=== PATIENT | female | born 1955 | race Caucasian/White ===

== ENCOUNTER → 2018-04-26 13:33 | Outpatient (CLI) | payer OTHER, SELFPAY ==
--- NOTE | 2018-04-26 13:36 | BI_ITS ---
MAMMOGRAPHY - BILATERAL SCREENING REASON FOR EXAM: Female, 62 years old. Routine annual screening examination. PERTINENT HISTORY: Grandmother with breast cancer. TECHNIQUE: Digital bilateral breast abdon (3D mammographic acquisition) in the CC and MLO projections. 2-D mediolateral oblique (MLO) and craniocaudad (CC) views of both breasts were obtained. CAD: Full Field Digital Mammography with Computer Added Detection was performed. COMPARISON: Comparison is made with prior outside examination dated January 02, 2014. FINDINGS: Breast Composition: There are scattered areas of fibroglandular density. There are no dominant masses or suspicious calcifications. Stable benign-appearing bilateral axillary lymph nodes. No other significant abnormalities are identified. There has been no significant change since the prior study. BI/SCREENING MAMM (CAD), BILAT IMPRESSION: Stable bilateral screening mammogram. Yearly follow-up mammogram recommended. (A) ASSESSMENT CATEGORY: BIRADS Category 2: Benign. A letter regarding these results will be sent to the patient by the facility within 30 days. Approximately 10% of breast cancers are not detected by mammography. A normal mammogram should not delay biopsy of a clinically suspicious abnormality. [id number] Electronically Signed: Oleksandr Magallanes, at 15:24 EST , Service support ,
== END ==
PROVIDERS: Family Provider Family Medicine; PCP Family Medicine; Referring Provider Family Medicine; Visit Provider Family Medicine
DX: Z12.31 Encounter for screening mammogram for malignant neoplasm of breast (principal)
CPT/HCPCS: 77063; 77067

== ENCOUNTER → 2018-06-04 06:37 | Outpatient (CLI) | payer OTHER, SELFPAY ==
[2016-01-07 14:53] VITALS: BMI 33.0
[2018-06-04 08:45] LABS: Absolute Neutrophil Count 3.6 X10^3/uL (2.0-7.7); Basophil# 0.03 X10^3/uL; Basophil% 0.4 % (0-1); Eosinophils% 4.5 % (0-5); Hemoglobin 12.6 g/dl (12.0-15.0); Lymphocyte % 32.8 % (19-41); Mean Corp Hgb Conc 32.3 g/gl (32-36); Mean Corpuscular Hgb 27.6 pg (27.0-32.0); Mean Corpuscular Volume 85.3 fL (81-99); Mean Platelet Vol. 10.6 fl (6.2-12.0); Monocyte# 0.55 X10^3/uL; Monocyte% 8.2 % (0-10); Neutrophil # 3.61 X10^3/uL (2.7-7.7); Platelet Count 258 K/mm3 (150-450); RBC Distribution Width CV 13.3 % (11.6-14.6); RBC Distribution Width SD 41.1 fl (35.1-43.9); Red Blood Count 4.57 M/mm3 (4.2-5.4); White Blood Count 6.7 K/mm3 (4.4-11.0)
[2018-06-04 08:46] LABS: POSITIVE COUNT NO; POSITIVE DIFFERENTIAL NO; POSITIVE MORPHOLOGY NO
[2018-06-04 09:09] LABS: ALB/GLOB Ratio 1.1 RATIO (0.9-2.4); AST(SGOT) 17 U/L (15-37); Alanine Aminotransfer ALT/SGPT 24 U/L (13-56); Albumin, Serum 3.8 g/dL (3.2-5.0); Alkaline Phosphatase 89 U/L (45-117); Anion Gap 6 (5-15); BUN 18 mg/dL (7-18); BUN/Creat Ratio 25.2 RATIO (10-20); Calcium,Total 8.6 mg/dL (8.5-10.1); Chloride 104 mmol/L (98-107); Cholesterol 198 mg/dL (200); Creatinine, Serum 0.72 mg/dL (0.55-1.02); EST Glomerular Filtration Rate 88 mL/min (>60); Est Glom Filt Rate - Afr Amer 107 mL/min (>60); Globulin 3.5 g/dL (2.2-4.2); Glucose 93 mg/dL (74-106); High Density Lipoprotein 36 mg/dL; Potassium 3.9 mmol/L (3.5-5.1); Protein, Total 7.3 g/dL (6.4-8.2); Sodium Level 139 mmol/L (136-145); Triglycerides 183 mg/dL; Very Low Density Lipoprotein 37 mg/dL (5-40)
== END ==
PROVIDERS: Family Provider Family Medicine; PCP Family Medicine; Referring Provider Family Medicine; Visit Provider Family Medicine
DX: Z00.00 Encounter for general adult medical examination without abnormal findings (principal); R73.01 Impaired fasting glucose
CPT/HCPCS: 36415; 80053; 80061; 83036; 85025

== ENCOUNTER → 2020-04-26 06:27 | Outpatient (CLI) | payer OTHER, SELFPAY ==
[2020-02-29 15:41] VITALS: BMI 34.5
--- NOTE | 2020-04-26 06:34 | MRI_ITS ---
STUDY: MRI RIGHT KNEE REASON FOR EXAM: Medial and anterior right knee pain since 12/24/2019, arthroscopy in 2012. TECHNIQUE: Standardized fat and water weighted pulse sequences were obtained in all 3 orthogonal planes. COMPARISON: None. FINDINGS: There is a partial medial meniscectomy with recurrent tear with a displaced meniscal fragment in the medial gutter (T2 coronal images 16, 17). There is arthrosis of the medial femorotibial compartment with small marginal osteophytes, subchondral eburnation and very mild subchondral bone edema, and chondral loss (T2 sagittal image 18). Normal medial collateral ligamentous complex (MCL). Normal distal semimembranosus, gracilis and semitendinosus tendons. Normal lateral meniscus. Normal hyaline cartilage of the lateral femorotibial compartment. Normal lateral femoral condyle and tibial plateau. Normal proximal tibiofibular articulation. Normal lateral collateral (fibular) ligament. Normal popliteus tendon. Normal biceps femoris tendon. Normal anterior cruciate ligament (ACL). Normal posterior cruciate ligament (PCL). Normal congruent patellofemoral articulation. There is arthrosis of the patellofemoral compartment with chondral thinning (T2 sagittal image 10). Normal medial and lateral patellar retinaculum. Normal visualized quadriceps tendon. Normal patellar tendon. There is mild postoperative scarring in Hoffa''s fat pad. There is a minimal volume of fluid in the knee joint with mild extravasated fluid at the posterior lateral aspect of the knee. There is a thin medial patellar plica. There is a small popliteal cyst (sagittal images 19-21). There is mild edema in the anterior subcutis adipose space. There is very mild bone edema in the proximal tibia at the insertion site of the posterior cruciate ligament. MRI/Lower Ext Joint Only (Routine) IMPRESSION: Partial medial meniscectomy with recurrent tear with displaced meniscal fragment in the medial gutter. Arthrosis of the medial femorotibial and patellofemoral compartments. Small popliteal cyst. Electronically Signed: Tray Irby MD at 7:58 EST Tel , Service support ,
== END ==
PROVIDERS: PCP Family Medicine; Referring Provider Physician Assistant; Visit Provider Physician Assistant
DX: M25.561 Pain in right knee (principal)
CPT/HCPCS: 73721

== ENCOUNTER → 2020-04-27 07:01 | Outpatient (CLI) | payer OTHER, SELFPAY ==
[2020-02-29 15:41] VITALS: BMI 34.5
--- NOTE | 2020-04-27 06:59 | BI_ITS ---
MAMMOGRAPHY - BILATERAL SCREENING REASON FOR EXAM: Female, 64 years old. Routine annual screening examination. PERTINENT HISTORY: Grandmother with breast cancer. TECHNIQUE: Digital bilateral breast liz (3D mammographic acquisition) in the CC and MLO projections. 2-D mediolateral oblique (MLO) and craniocaudad (CC) views of both breasts were obtained. CAD: Full Field Digital Mammography with Computer Added Detection was performed. COMPARISON: Comparison is made with prior study dated 04/26/2018. FINDINGS: Breast Composition: There are scattered areas of fibroglandular density. There is a 7.5 mm x 8.4 mm asymmetrical density in the inferior medial aspect of the right breast. Correlation with ultrasound is recommended. Stable small benign-appearing bilateral axillary lymph nodes. No other significant abnormalities are identified. BI/SCRN MAMM (CAD)W/LIZ BILAT IMPRESSION: New 7.5 mm x 8.4 mm asymmetrical density in the inferior medial aspect of the right breast as described. Correlation with ultrasound is recommended. ASSESSMENT CATEGORY: BIRADS Category 0: Incomplete. Need additional imaging evaluation. A letter regarding these results will be sent to the patient by the facility within 30 days. Approximately 10% of breast cancers are not detected by mammography. A normal mammogram should not delay biopsy of a clinically suspicious abnormality. [id number] Electronically Signed: Oleksandr Magallanes MD at 8:26 EST , Service support ,
== END ==
PROVIDERS: PCP Family Medicine; Referring Provider Family Medicine; Visit Provider Family Medicine
DX: Z12.31 Encounter for screening mammogram for malignant neoplasm of breast (principal)
CPT/HCPCS: 77063; 77067

== ENCOUNTER → 2020-05-04 09:41 | Outpatient (CLI) | payer OTHER, SELFPAY ==
[2020-02-29 15:41] VITALS: BMI 34.5
--- NOTE | 2020-05-04 09:43 | US_ITS ---
STUDY: ULTRASOUND BREAST - RIGHT REASON FOR EXAM: Female, 64 years old. Abnormal mammogram TECHNIQUE: Axial and longitudinal images of the RIGHT breast were performed with a high resolution ultrasound transducer. # OF IMAGES: 35 COMPARISON: Mammogram from 04/27/2020 FINDINGS: RIGHT Breast: Ultrasound evaluation of the right breast, in the area of concern, shows only normal dense fibroglandular tissue. There is no suspicious shadowing solid lesion, architectural distortion, or clustered shadowing calcifications. US/Breast Limited Unilateral IMPRESSION: No suspicious sonographic findings ASSESSMENT CATEGORY: BIRADS Category 1: Negative. A letter regarding these results will be sent to the patient by the facility within 30 days. Electronically Signed: Flavio Orr MD at 16:40 EST , Service support ,
== END ==
PROVIDERS: PCP Family Medicine; Referring Provider Family Medicine; Visit Provider Family Medicine
DX: R92.8 Other abnormal and inconclusive findings on diagnostic imaging of breast (principal)
CPT/HCPCS: 76642

== ENCOUNTER → 2020-06-05 07:13 | Outpatient (CLI) | payer OTHER, SELFPAY ==
[2020-02-29 15:41] VITALS: BMI 34.5
[2020-06-05 07:27] LABS: Absolute Lymphocyte Count 2.59 X10^3/uL (0.83-4.51); Absolute Neutrophil Count 4.7 X10^3/uL (2.0-7.7); Basophil# 0.06 X10^3/uL; Basophil% 0.7 % (0-1); Eosinophil# 0.27 X10^3/uL; Eosinophils% 3.3 % (0-5); Hematocrit 43.3 % (37-47); Hemoglobin 13.7 g/dL (12.0-15.0); Lymphocyte # 2.59 X10^3/ul (4.0); Lymphocyte % 31.6 % (19-41); Mean Corp Hgb Conc 31.6 g/dL (32-36); Mean Corpuscular Hgb 27.1 pg (27.0-32.0); Mean Corpuscular Volume 85.6 fL (81-99); Mean Platelet Vol. 9.8 fl (6.2-12.0); Monocyte# 0.58 X10^3/uL; Monocyte% 7.1 % (0-10); NRBC Flagged by Analyzer 0 % (0-5); Neutrophil # 4.68 X10^3/uL (2.7-7.7); Neutrophil % 57.1 % (47-70); Platelet Count 283 K/mm3 (150-450); RBC Distribution Width CV 12.8 % (11.6-14.6); RBC Distribution Width SD 39.6 fl (35.1-43.9); Red Blood Count 5.06 M/mm3 (4.2-5.4); White Blood Count 8.2 K/mm3 (4.4-11.0)
[2020-06-05 08:05] LABS: ALB/GLOB Ratio 1.1 RATIO (0.9-2.4); AST(SGOT) 21 U/L (15-37); Alanine Aminotransfer ALT/SGPT 33 U/L (13-56); Albumin, Serum 3.8 g/dL (3.2-5.0); Alkaline Phosphatase 76 U/L (45-117); Anion Gap 4 (5-15); BUN 11 mg/dL (7-18); BUN/Creat Ratio 15.9 RATIO (10-20); CRP 8.74 mg/L (0.0-3.0); Calcium,Total 8.7 mg/dL (8.5-10.1); Chloride 103 mmol/L (98-107); Creatinine, Serum 0.69 mg/dL (0.55-1.02); EST Glomerular Filtration Rate 91 mL/min (>60); Est Glom Filt Rate - Afr Amer 110 mL/min (>60); Globulin 3.5 g/dL (2.2-4.2); Glucose 100 mg/dL (74-106); Potassium 3.8 mmol/L (3.5-5.1); Protein, Total 7.3 g/dL (6.4-8.2); Sodium Level 137 mmol/L (136-145)
== END ==
PROVIDERS: PCP Family Medicine; Referring Provider Family Medicine; Visit Provider Family Medicine
DX: R10.9 Unspecified abdominal pain (principal)
CPT/HCPCS: 36415; 80053; 85025; 86140

== ENCOUNTER → 2020-06-12 15:32 | Outpatient (CLI) | payer OTHER, SELFPAY ==
[2020-02-29 15:41] VITALS: BMI 34.5
--- NOTE | 2020-06-12 15:34 | CT_ITS ---
STUDY: CT ABDOMEN AND PELVIS WITHOUT CONTRAST REASON FOR EXAM: Female, 64 years old. 64YR OLD FEMALE W/LOW BACK AND FLANK PAIN,PERSISTENT -- ETIOLOGY UNCLEAR,HX OF KIDNEY STONES RADIATION DOSAGE (If Supplied By Facility): CTDIvol = ( 13.55 ) mGy, DLP = ( 613.25 ) mGycm TECHNIQUE: Transaxial images were obtained from the dome of the diaphragm to the symphysis pubis without oral contrast, and without intravenous contrast. Sagittal and coronal images were reconstructed. Individualized dose optimization techniques were used for this CT. COMPARISON: Comparison is made with prior study dated 04/13/2012. FINDINGS: The visualized lung bases are unremarkable. The visualized portions of the heart are within normal limits. Normal liver. Normal gallbladder and extrahepatic biliary system. Normal spleen. Normal pancreas. Normal bilateral adrenal glands. Normal right kidney. There is a 9.1 mm fatty nodule in the posterior upper pole of the left kidney suggests a very small angiomyolipoma. There is a small hiatal hernia. Normal small intestine. Normal colon. The appendix is visualized and appears normal. There is scattered atherosclerotic calcification of the abdominal aorta, without a demonstrated aneurysm. Normal inferior vena cava. There is borderline retroperitoneal lymphadenopathy with enlarged nodes no greater than 10mm in the short axis diameter. Normal urinary bladder. There is absence of the uterus consistent with a prior hysterectomy. Normal abdominal wall. There are diffuse degenerative changes of the visualized lumbar spine. CT/Abdomen/Pelvis without Cont IMPRESSION: Findings suggestive of a small angiomyolipoma in the posterior upper pole of the left kidney. Status post hysterectomy. Electronically Signed: Oleksandr Magallanes MD at 9:47 EDT , Service support ,
== END ==
PROVIDERS: PCP Family Medicine; Referring Provider Family Medicine; Visit Provider Family Medicine
DX: R10.9 Unspecified abdominal pain (principal); M54.5 Low back pain
CPT/HCPCS: 74176

== ENCOUNTER → 2020-08-10 08:06 | Outpatient (CLI) | payer OTHER, SELFPAY ==
[2020-02-29 15:41] VITALS: BMI 34.5
--- NOTE | 2020-08-10 08:20 | EKG12_ITS ---
Test Reason : PREOP Blood Pressure : / mmHG Vent. Rate : 064 BPM Atrial Rate : 064 BPM P-R Int : 148 ms QRS Dur : 080 ms QT Int : 442 ms P-R-T Axes : 019 -20 015 degrees QTc Int : 455 ms Normal sinus rhythm Normal ECG Confirmed by EMELY LERNER, CYNDI ([id number]), editor department MOMO REYES ([id number]) on 08/13/2020 10:56:20 A M Referred By: Chiki Jarrell Confirmed By:TOMMY HAN MD
[2020-08-10 08:57] LABS: Hematocrit 40.5 % (37-47); Hemoglobin 12.7 g/dL (12.0-15.0); Mean Corp Hgb Conc 31.4 g/dL (32-36); Mean Corpuscular Hgb 26.7 pg (27.0-32.0); Mean Corpuscular Volume 85.3 fL (81-99); Mean Platelet Vol. 10.2 fl (6.2-12.0); Platelet Count 280 K/mm3 (150-450); RBC Distribution Width CV 13.3 % (11.6-14.6); RBC Distribution Width SD 41.6 fl (35.1-43.9); Red Blood Count 4.75 M/mm3 (4.2-5.4); White Blood Count 7.4 K/mm3 (4.4-11.0)
[2020-08-10 09:27] LABS: Hemoglobin A1c 5.8 % (3.8-5.6)
[2020-08-10 09:45] LABS: Anion Gap 5 (5-15); BUN 12 mg/dL (7-18); BUN/Creat Ratio 18.2 RATIO (10-20); Calcium,Total 8.6 mg/dL (8.5-10.1); Chloride 103 mmol/L (98-107); Cholesterol 171 mg/dL (200); Creatinine, Serum 0.66 mg/dL (0.55-1.02); EST Glomerular Filtration Rate 96 mL/min (>60); Est Glom Filt Rate - Afr Amer 116 mL/min (>60); Free T3 3.6 pg/mL (2.18-3.98); Glucose 100 mg/dL (74-106); High Density Lipoprotein 29 mg/dL; Potassium 4.1 mmol/L (3.5-5.1); Sodium Level 138 mmol/L (136-145); T4 Free Direct 0.98 ng/dL (0.76-1.46); T4 Total, Thyroxin 9.5 ug/dL (4.8-13.9); Thyroid Stim Hormone (TSH) 1.34 uIU/mL (0.358-3.74); Triglycerides 427 mg/dL
== END ==
PROVIDERS: PCP Family Medicine; Referring Provider Orthopaedic Surgery; Visit Provider Orthopaedic Surgery
DX: Z01.818 Encounter for other preprocedural examination (principal); E03.9 Hypothyroidism, unspecified; E78.5 Hyperlipidemia, unspecified; R73.01 Impaired fasting glucose; Z01.810 Encounter for preprocedural cardiovascular examination
CPT/HCPCS: 36415; 80048; 80061; 83036; 84436; 84439; 84443; 84481; 85027; 93005

== ENCOUNTER → 2020-08-14 08:29 | Outpatient (CLI) | payer OTHER, SELFPAY ==
[2020-02-29 15:41] VITALS: BMI 34.5
== END ==
PROVIDERS: PCP Family Medicine; Referring Provider Orthopaedic Surgery; Visit Provider Orthopaedic Surgery
DX: Z11.59 Encounter for screening for other viral diseases (principal)
CPT/HCPCS: 87635; C9803; U0005; U0003

== ENCOUNTER → 2020-08-31 10:19 | Outpatient (CLI) | payer OTHER, SELFPAY ==
[2020-02-29 15:41] VITALS: BMI 34.5
--- NOTE | 2020-08-31 10:52 | VDLE_ITS ---
Reason For Study: RLE PAIN RIGHT GSV is normal. CFV is compressible, spontaneous, phasic, competent and demonstrates normal augmentation. FV is compressible, spontaneous, phasic, competent and demonstrates normal augmentation. POP V is compressible, spontaneous, phasic, competent and demonstrates normal augmentation. T/P Trunk is compressible. PTV is compressible. RT PerV is compressible. Procedure This is a venous duplex using B-mode, color flow and spectral Doppler. Exam performed in department. The exam was diagnostic. A preliminary report was called and/or faxed to Dr. Jarrell @ 12:00 @ [phone]. VL/Venous Duplex US, Unilateral Interpretation Summary Deep veins of the right lower extremity are patent and compressible segmentally . There is no evidence of right lower extremity deep vein thrombosis. Valvular competence reginaldo ears intact within the proximal deep venous system on the right . The right great saphenous vein a ppears patent and compressible segmentally. Ordering Physician: Chiki Jarrell Referring Physician: Chauncey Anderson Performed By: Nubia Moran, JACLYN, RVT
== END ==
PROVIDERS: PCP Family Medicine; Referring Provider Orthopaedic Surgery; Visit Provider Orthopaedic Surgery
DX: M79.604 Pain in right leg (principal)
CPT/HCPCS: 93971

== ENCOUNTER → 2021-01-30 07:49 | Outpatient (CLI) | payer OTHER, SELFPAY ==
--- NOTE | 2021-01-30 07:51 | CT_ITS ---
STUDY: CT RIGHT LOWER EXTREMITY WITHOUT CONTRAST REASON FOR EXAM: Right knee osteoarthritis, surgical planning. TECHNIQUE: Transaxial CT imaging of the lower extremity was performed. Coronal and sagittal images were reformatted. Individualized dose optimization techniques were used for this CT. COMPARISON: MRI images 04/26/2020. FINDINGS: Knee: There are marginal osteophytes, subchondral eburnation, subchondral cystic change and joint space narrowing of the medial femorotibial compartment (coronal reconstruction 31). There is preservation of joint space of the lateral femorotibial compartment. There are marginal osteophytes and joint space narrowing of the lateral aspect of the patellofemoral compartment (axial image 259). Normal proximal tibiofibular articulation. There is no joint effusion. The quadriceps tendon is grossly normal. The patellar tendon is grossly normal. Normal Hoffa''s fat pad. There is a small popliteal cyst (sagittal reconstruction 45). Hip: There is mild joint space narrowing the superior medial hip joint (coronal reconstructions 55). There is a herniation pit in the lateral aspect of the femoral neck (coronal reconstructions 52). Ankle: Normal tibiotalar, posterior subtalar, talonavicular and calcaneocuboid articulations. There are very small posterior and plantar calcaneal enthesophytes. CT/Extremity Lower without Contra IMPRESSION: Right knee osteoarthritis. Electronically Signed: Tray Irby MD at 14:59 EST Tel , Service support ,
[2021-01-30 08:52] LABS: Hematocrit 40.8 % (37-47); Hemoglobin 13.1 g/dL (12.0-15.0); Mean Corp Hgb Conc 32.1 g/dL (32-36); Mean Corpuscular Hgb 27.3 pg (27.0-32.0); Mean Platelet Vol. 10.4 fl (6.2-12.0); Platelet Count 282 K/mm3 (150-450); RBC Distribution Width CV 12.9 % (11.6-14.6); RBC Distribution Width SD 40.2 fl (35.1-43.9); White Blood Count 6.9 K/mm3 (4.4-11.0)
[2021-01-30 09:15] LABS: Anion Gap 7 (5-15); BUN 15 mg/dL (7-18); BUN/Creat Ratio 25.4 RATIO (10-20); Chloride 105 mmol/L (98-107); Creatinine, Serum 0.59 mg/dL (0.55-1.02); EST Glomerular Filtration Rate 109 mL/min (>60); Est Glom Filt Rate - Afr Amer 132 mL/min (>60); Glucose 96 mg/dL (74-106); Potassium 3.7 mmol/L (3.5-5.1); Sodium Level 140 mmol/L (136-145)
[2021-01-30 09:47] LABS: Hemoglobin A1c 5.5 % (3.8-5.6)
== END ==
PROVIDERS: PCP Family Medicine; Referring Provider Orthopaedic Surgery; Visit Provider Orthopaedic Surgery
DX: Z01.818 Encounter for other preprocedural examination (principal); Z01.810 Encounter for preprocedural cardiovascular examination; M17.11 Unilateral primary osteoarthritis, right knee
CPT/HCPCS: 36415; 73700; 80048; 83036; 85027

== ENCOUNTER → 2021-02-08 08:18 | Outpatient (CLI) | payer OTHER, SELFPAY | PROVIDERS: PCP Family Medicine; Referring Provider Physician Assistant; Visit Provider Physician Assistant | DX: Z11.59 Encounter for screening for other viral diseases (principal) | CPT/HCPCS: 87635; C9803; U0005; U0003 ==

== ENCOUNTER → 2021-02-13 | Outpatient (CLI) | payer OTHER, SELFPAY ==
--- NOTE | 2021-02-13 10:45 | KNEE_PTH ---
PATIENT: PAIGE OLIVEROS LOC: [facility] U#:[id number] AGE/SX: 65/F ROOM: RE02/13/[address]: Dr. Chiki Jarrell DO : [id number] BED: DIS: 02/13/2021 SPEC #: [id number] RECD: 02/13/21 15:04 STATUS: STEVENSON REJarek #: [id number] MARGARETTE: 02/13/21 10:[address]: Chiki Jarrell DEPT: SURGICAL PATHOLOGY RECD BY: Keyla Bradford ENTERED: 02/14/21 08:28 SP TYPE: TOTAL KNEE OTHR DR: Dr. Chauncey Anderson, [facility] Tissues: Knee, NOS Procedures: Decalcification bone/plaque Surgery Specimen Level IV HEADER OPERATION: Robotic assisted right total knee arthroplasty PRE-OP DIAGNOSIS: Primary osteoarthritis right knee TISSUE SUBMITTED: Bone and soft tissue right knee MICROSCOPIC DIAGNOSIS Bone and soft tissue, right knee, total knee replacement/resection: Pieces of bone with degenerative osteoarthritic changes. Fibroadipose tissue, fibroconnective tissue and reactive synovial tissue. SJ:beatris 02/20/2021 MICROSCOPIC DESCRIPTION Slides are reviewed. GROSS DESCRIPTION Received is one container designated bone and soft tissue right knee. The specimen consists of multiple fragments of rivera-yellow bone measuring in aggregate 14 x 10 x 2 cm. Also in the specimen container are multiple fragments of yellow-white soft tissue measuring in aggregate 3 x 2 x 0.6 cm. A number of bony fragments contain articular surfaces consistent with tibial plateau and femoral condyle and displaying prominent osteophyte formation, eburnation, and bone erosion. Dowel Sticker Operator sections are submitted in two cassettes as follows: 1 - bone after decalcification, 2 - soft tissue. / AM:beatris 02/14/21 TC:5 [facility]: [id number]
== END | disposition home or self-care (01) ==
LOC: LABSPEC 15:21
PROVIDERS: PCP Family Medicine; Referring Provider Orthopaedic Surgery; Visit Provider Orthopaedic Surgery
DX: M17.11 Unilateral primary osteoarthritis, right knee (principal)
CPT/HCPCS: 88305; 88311

== ENCOUNTER 2021-04-12 10:45 | Outpatient (CLI) | payer OTHER, SELFPAY ==
--- NOTE | 2021-04-12 10:59 | VDLE_ITS ---
Reason For Study: RLE pain RIGHT LEFT GSV is normal. CFV is compressible, spontaneous, phasic, CFV is compressible, spontaneous, phasic, competent, and demonstrates normal competent and demonstrates normal augmentation. augmentation. FV is compressible, spontaneous, phasic, competent and demonstrates normal augmentation. POP V is compressible, spontaneous, phasic, competent and demonstrates normal augmentation. T/P Trunk is compressible. PTV is compressible. RT PerV is compressible. NON-vascular structure noted in RLE from proximal/lateral calf to mid lateral calf. Procedure This is a venous duplex using B-mode, color flow and spectral Doppler. Exam performed in department. A preliminary report was called and/or faxed to [facility] @ [phone] @ 11:25 am. VL/Venous Duplex US, Unilateral Interpretation Summary There is no evidence of right lower extremity deep vein thrombosis. Right great saphenous vein appears patent and compressible segmentally. Non vascular structure right later al calf from proximal to mid. Clinical correlation indicated Normal flow patterns left common femoral vein Ordering Physician: Chiki Jarrell Referring Physician: Chauncey Anderson Performed By: Nubia Moran, JACLYN, RVT
== END 2021-04-12 23:59 | disposition home or self-care (01) ==
LOC: CVS 10:47
PROVIDERS: PCP Family Medicine; Referring Provider Orthopaedic Surgery; Visit Provider Orthopaedic Surgery
DX: M79.604 Pain in right leg (principal)
CPT/HCPCS: 93971

== ENCOUNTER → 2021-08-22 | Outpatient (CLI) | payer OTHER, SELFPAY ==
--- NOTE | 2021-08-22 07:28 | RAD_ITS ---
STUDY: X-RAY - PELVIS AND RIGHT HIP REASON FOR EXAM: Female, 65 years old. Hip pain. TECHNIQUE: 3 views of the pelvis and hip. COMPARISON: None. FINDINGS: There is a non-specific bowel gas pattern. Normal visualized soft tissue structures. Osteopenia. Mild arthrosis of the sacroiliac joints and symphysis pubis. Mild arthrosis of both. RAD/HIP, UNI W/ Pelvis 2-3 Views IMPRESSION: Osteopenia with osteoarthritic changes as described. No acute abnormality, evidence of erosive changes or fusion. Electronically Signed: Femi Nunez MD at 13:36 EDT ,
--- NOTE | 2021-08-22 07:29 | RAD_ITS ---
STUDY: X-RAY - LUMBAR SPINE REASON FOR EXAM: Female, 65 years old. Right buttocks pain. TECHNIQUE: 5 view(s) of the lumbar spine were obtained. COMPARISON: None FINDINGS: Osteopenia. Normal lumbar lordosis. Mild levoscoliosis. There is a normal alignment of the vertebrae. Diffuse facet sclerosis. And intervertebral disc space narrowing most marked L3-4 and L5-S1. The soft tissue structures are unremarkable. RAD/L/S Spine Min 4 Views IMPRESSION: Osteopenia with moderate lumbosacral spondylosis. No acute abnormality, evidence of erosive changes or fusion. Electronically Signed: Femi Nunez MD at 13:39 EDT ,
== END | disposition home or self-care (01) ==
LOC: RAD 07:22
PROVIDERS: PCP Family Medicine; Referring Provider Family Medicine; Visit Provider Family Medicine
DX: M54.17 Radiculopathy, lumbosacral region (principal); M25.551 Pain in right hip
CPT/HCPCS: 72110; 73502

== ENCOUNTER → 2021-11-16 | Outpatient (CLI) | payer MEDICARE, OTHER, SELFPAY ==
[2021-11-16 08:43] LABS: AST(SGOT) 15 U/L (15-37); Alanine Aminotransfer ALT/SGPT 21 U/L (13-56); Albumin, Serum 3.7 g/dL (3.2-5.0); Alkaline Phosphatase 98 U/L (45-117); Bilirubin, Direct 0.07 mg/dL (0.00-0.30); Cholesterol 190 mg/dL (200); Globulin 3.8 g/dL (2.2-4.2); High Density Lipoprotein 35 mg/dL; Protein, Total 7.5 g/dL (6.4-8.2); Triglycerides 368 mg/dL; Very Low Density Lipoprotein 74 mg/dL (5-40)
== END | disposition home or self-care (01) ==
LOC: LAB 07:37
PROVIDERS: PCP Family Medicine; Visit Provider Family Medicine
DX: E78.5 Hyperlipidemia, unspecified (principal)
CPT/HCPCS: 36415; 80061; 80076

== ENCOUNTER 2022-02-10 09:30 | Outpatient (RCR) | payer MEDICARE, OTHER, SELFPAY ==
--- NOTE | 2021-12-03 09:30 | HP.PTEVAL ---
Patient's Visit Information PAIGE OLIVEROS is a 66 year old F referred to Physical Therapy by Dr. Bijan Li, with a diagnosis of LUMBAR STENOSIS, SPONYLOSIS WITH RADIC AND SPONDYLOLISTHESIS. Date of Evaluation: 12/03/21 Physical Therapist: Aleida Burroughs, PT, Cert MDT - Visit Plan Frequency: 2-3x /Week Duration: 4-6 Weeks Plan: START SLOW. AQUATIC THERPAY FOR PAIN RELIEF, POSTURE CORRECTION/STRENGTHENING, INSTRUCTION IN APPROPRIATE BODY MECHANICS AND ACTIVITY MODIFICATIONS. DLS WITH NEUTRAL SPINE ONLY. OK FOR PATIENT TO CONTINUE CURRENT SKTC, PPT, SEATED FLEXION AND HSS AT HOME TOLERATED. AJ LE ROM, STRETCHING AND STRENGTHENING. HEP INSTRUCTION. 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 LIKES TO WALK FOR EX BUT HASN'T BEEN ABLE TO. LIKES TO EX 4-6 TIMES A WK THAT IS AGGREVATING SYMPTOMS. BRINGS AUNT (HAS Alzheimer's) TO EX AT [facility]. Present symptoms: RIGHT LOW BACK, RIGHT BUTTOCK, RIGHT KNEE PAIN. KNEE IS NUMB ALSO. THE PAIN ALSO GOES DOWN TO ANKLE AND SOMETIMES TO THE TOP OF FOOT. LEFT GREAT TOE NUMBNESS. AJ UE AND LE JABS OF PAIN EVEN INTO TRUNK YESTERDAY. SHE REPORTS THESE JABS STARTED OVER THE WEEKEND AND WERE THE WORST YESTERDAY - BETTER TODAY. SHE REPORTS DR. LI IS NOT AWARE OF THESE SYMPTOMS BUT WANTS TO PROCEED WITH EVAL. BACK SPASMS (AJ A WK AGO BUT JUST RIGHT NOW). 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 PRIOR TO THAT WAS HAVING A LOT OF KNEE PAIN AND HAD KNEE SURGERY 02/13/22. Pain Scale: WORST 6/10, LEAST 0/10. Currently: 04/04. Symptoms at onset: R SI JT AREA ACHING. Worse: WALKING, STANDING AT SINK TO DO DISHES, DOING LAUNDRY, RISING FROM SITTING, GETTING IN/OUT OF THE CAR, TRYING TO PUT SHOES AND SOCKS ON, LEANING OVER, LIFTING. EVEN TRYING TO GET COMFORTABLE TO GO TO SLEEP. Better: STAYING STILL IN THE RIGHT POSITION, [place], SOMETIMES VERY SHORT WALKS. STRETCHING - SKTC, HSS, PPT AND SEATED FLEXION. Disturbed sleep: YES. 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 SEVERAL EPISODES OF PT - USUALLY HELPS. LAST PT EPISODE WITH BACK PT WAS IN FEB 2021 WITH [facility]. NO LUMBAR SURGERY. H/O CHIROPRACTIC OVER THE YEARS WITH MOST RECENT VISIT BEING LAST WEEK. CHIROPRACTIC IS CURRENTLY HELPING. MASSAGE THERAPY YESTERDAY - HELPED. NO DANIELLE'S. Treatment this episode: REFERRAL TO PAIN MGMT BUT HAS NOT BEEN CONTACTED BY THEM YET. STEROID X 6 DAYS - HELPED. Coughing/sneezing/straining: POSITIVE. GAIT: RIGHT LOW BACK TIGHTNESS AND PAIN THAT RESTRICTS ME FROM WALKING. TIME AND DISTANCE LIMITED. SLOW AND GUARDED. RIGHT KNEE WANTS TO GIVE OUT. FELL A COUPLE MONTHS AGO - I CATCH MY FEET A LOT AND KNEE GIVES OUT. Bowel or Bladder Dysfunction: NO. Accidents: NO. Unexplained weight loss: NO. Imaging: HAD LUMBAR MRI AT [facility] 2 DAYS BEFORE SHE INJURED HER BACK AGAIN END OF OCT 2021. SHE REPORTS SHE HAD THE MRI BECAUSE SHE WASN'T WALKING CORRECTLY. SHE REPORTS THEY TOLD HER THERE ARE 4 LEVELS OF DAMAGE IN HER BACK WITH THE DISCS AND ARTHRITIS. SHE REPORTS DR. LI TOLD HER THERE WERE TOO MANY LEVELS INVOLVED TO DO SURGERY AND THAT SHE CAN'T DO HER [employer] WORK ANYMORE. SHE REPORTS SHE AN SHARMIN'T FOR A SECOND OPINION WITH DR. RICARDO WOODRUFF JAN 03 2022. JULY 2021 LUMBAR X-RAY: IMPRESSION: Osteopenia with moderate lumbosacral spondylosis. . No acute abnormality, evidence of erosive changes or fusion. JULY 2021: HIP/PELVIS X-RAY: FINDINGS: There is a non-specific bowel gas pattern. Normal visualized soft tissue. structures. Osteopenia. Mild arthrosis of the sacroiliac joints and symphysis pubis. Mild arthrosis of both. . RAD/HIP, UNI W/ Pelvis 2-3 Views. IMPRESSION: Osteopenia with osteoarthritic changes as described. . No acute abnormality, evidence of erosive changes or fusion. . . PMH/Recent major surgery: RECENT DX OF PSORIATIC ARTHRITS. 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 OSTEOPENIA AND POSSIBLY OSTEOPOROSIS. HYPOTHYROIDISM. RIGHT TKR FEB 13 2022. L TKR 2014. - Objective Sitting/Standing Posture: R ILIAC CREST HIGHER THAN LEFT. REDUCED LUMBAR LORDOSIS. NO RELEVENT LATERAL SHIFT. RIGHT SHLD LEVEL HIGHER THAN LEFT. Active Correction of posture: NE. Other Observations: INDEP SLOW ANTALGIC GAIT INTO PT WITHOUT ANY ASSISTIVE DEVICES. DIFFICULTY RISING FROM SITTING AND INITIATING GAIT. AJ UE DEPENDENT SIT TO STAND. Sensory deficit: AJ LE LIGHT TOUCH SENSATION INTACT AND SYMMETRICAL EXCEPT PATIENT REPORTS DECREASED LIGHT TOUCH RIGHT LATERAL THIGH COMPARED TO LEFT AND AJ LATERAL KNEE SYMMETRICAL DECREASED LIGHT TOUCH/NUMBNESS. ROM deficit: AJ HIP IR TIGHTNESS. PATIENT REPORTS R KNEE FLEXION TO 110 DEG. Motor deficit: L LE: HIP 4/5, KNEE 5/5, ANKLE 5/5. R LE: HIP 4-/5, KNEE 4/5, ANKLE 5/5. Dural Signs: POSITIVE RIGHT LE. Lumbar mvmt loss: flex - MOD TO LENNY. ext - LENNY. R SG - LENNY. L SG - LENNY. PATIENT C/O INCREASED LBP WITH LUMBAR ROM TESTING ALL PLANES. Core strength: POOR. Palpation: PATIENT DENIES TENDERNESS WITH PALPATION OF THE THORACIC, LUMBAR, SACRAL, AJ BUTTOCK AND HIP REGIONS. OTHER: PATIENT IS ABLE TO HEEL WALK. ABLE TO GET ON TOES AND TAKE A STEP BUT STOPPED DUE TO PAIN. PATIENT IS PLEASANT AND COOPERATIVE TO WORK WITH BUT TEARFUL OFF AND ON DURING SESSION THAT SHE RELATES TO HER MEDICAL CONDITIONS. TREATMENT: NEUROMUSCULAR REEDUCATION - RETRAINING OF MVMT AND POSTURE FOR SITTING, LYING AND STANDING ACTIVITIES. INSTRUCTION IN AVOIDANCE OF PERIPHERAIZATION OF SYMPTOMS. STRONGLY ENCOURAGED PATIENT TO NOTIFY DR. LI OF NEW AJ UE AND LE JABBING PAINS THAT STARTED THIS PAST WEEKEND. PATIENT AGREEABLE. - Balance/Special Test Scores Oswestry Low Back Score: 25 - Goals Goal 1:: DECREASE C/O LOW BACK AND LE SX'S. Goal Time Frame: 4-6 Weeks Goal 2:: IMPROVE PERSONAL CARE, LIFTING, WALKING, SITTING, STANDING, SLEEP, SOCIAL LIFE, TRAVEL AND WORK/HOMEMAKING FUNCTION Goal Time Frame: 4-6 Weeks Goal 3:: INSTRUCT IN PROPHYLAXIS Goal Time Frame: 4-6 Weeks - Anticipated Interventions Patient/Client Instruction: Educate patient on: Condition, Plan of Care, Risk Factors For the Purpose of:: To improve self management Therapeutic Exercise to Include: Strength training, Body mechanics, Postural training, Flexibilty training, Gait and locomotor training, Neuromotor development, In an aquatic setting, Dynamic Lumbar Stabilization For the Purpose of:: To decrease pain, To increase ROM, To improve muscle performance and motor function, To increase tolerance to activity/condition/position, To improve ability of physical actions for home/community/work/leisure, To improve gait and locomotor functions Cryotherapy (ice pack, ice massage): Yes Thermo therapy (hot pack): Yes Ultrasound (thermal/non thermal): Yes For the Purpose of:: To decrease pain, To improve nutrient delivery to tissue Thank you for the opportunity to evaluate your patient. For Medicare and Medicare HMO plans, please review the plan of care and approve it. It will need to be FAXED BACK to us at [phone] for Medicare purposes. For Medicare only, by signing this I certify the plan of care. Please let me know if there are questions or concerns regarding this plan of care. Physician Signature: Date:
--- NOTE | 2021-12-27 16:06 | HP.PTREVAL ---
Dr. Bijan Garcia, DO, It has been my pleasure to treat PAIGE OLIVEROS over the last 9 visits for LUMBAR STENOSIS, SPONYLOSIS WITH RADIC AND SPONDYLOLISTHESIS. Please see the progress note below for an update on the physical therapy plan of care! Subjective: PATIENT REPORTS HER WALKING HER WALKING IS BETTER AND SHE CAN LEAN OVER BETTER TO GET HER SHOES ON. I'M NOT DEPRESSED EITHER. PATIENT REPORTS SHE HAS NUMBNESS ON THE TOP OF HER RIGHT PELVIS BUT IT HAS BEEN THERE FOR [address] JACQUES AND DANIELLE PENDING 01/08/22. CONSULT WITH DR. MARROQUIN PENDING 01/02/22. CANCELLED SHARMIN'T WITH DR WOODRUFF 01/03/22. HAD E-STIM AND ACTUATOR TREATMENT BY CHIROPRACTOR 12/24/21 WITH BENEFIT. NO OTHER PROFESSIONAL TREATMENTS SINCE [facility] PT EVAL. PATIENT REPORTS SHE WOULD LIKE TO CONTINUE AQUATIC THERAPY. STATES SHE STARTED GABAPENTIN WITH PRESCRIPTION FROM DR. JACQUES AND HER PINS AND NEEDLES ARE IMPROVING. PATIENT DENIES BEING GIVEN ANY PHYSICIAN RESTRICTIONS. PATIENT REPORTS HER SPASMS, PAIN, PINS AND NEEDLES HAVE ALL IMPROVED BUT STILL THERE. Objective/Function: PATIENT WAS SEEN TODAY FOR RE-ASSESSMENT OF PROGRESS TOWARD THE SET PT GOALS AND THE NEED FOR FURTHER PHYSICAL THERAPY VS READINESS FOR DISCHARGE. UPON EXAM TODAY: PATIENT APPEARS TO BE A GOOD CANDIDATE TO CONTINUE AQUATIC THERAPY BASED ON PROGRESS MADE AND ROOM FOR FUTHER IMPROVEMENT. INDEP SLOW ANTALGIC GAIT INTO PT WITHOUT ANY ASSISTIVE DEVICE. GAIT CADANCE AND POSTURE HAS IMPROVED. DIFFICULTY INITIATING GAIT AFTER SITTING. ABLE TO TRANSFER SIT TO STAND WITHOUT DIFFICULTY TODAY WITH HANDS ON KNEES. Sensory deficit: AJ LE LIGHT TOUCH SENSATION INTACT AND SYMMETRICAL EXCEPT PATIENT REPORTS DECREASED LIGHT TOUCH RIGHT LATERAL HIP AND THIGH COMPARED TO LEFT. ROM deficit: AJ HIP IR TIGHTNESS. Motor deficit: L LE: HIP 4/5, KNEE 5/5, ANKLE 5/5. R LE: HIP 4-/5, KNEE 4/5, ANKLE 5/5. Dural Signs: POSITIVE RIGHT LE. Lumbar mvmt loss: flex - MOD TO LENNY. ext - LENNY. R SG - LENNY. L SG - LENNY. PATIENT C/O INCREASED LBP WITH LUMBAR ROM TESTING ALL PLANES. Core strength: POOR. Palpation: PATIENT DENIES TENDERNESS WITH PALPATION OF THE THORACIC, LUMBAR, SACRAL, AJ BUTTOCK AND HIP REGIONS. OTHER: PATIENT IS ABLE TO HEEL WALK. PATIENT IS ALSO ABLE TO TOE WALK BUT ONLY A STEP OR TWO THEN STOPS DUE TO PAIN. INSTRUCTED PATIENT TO SEEK MEDICAL ATTENTION IF NEW SX'S ARRISE OR INCREASE. INSTRUCTED TO SEEK EMERGENCY CARE IF LOSS OF BOWEL OR BLADDER CONTROL. Plan Plan: *f/u with HEP tasks d/t recent NON-COMPLIANCE. *Add noodle stomp/leg press and rest of BDB tasks next. CONTINUE AQUATIC THERPAY FOR PAIN RELIEF, POSTURE CORRECTION/STRENGTHENING, INSTRUCTION IN APPROPRIATE BODY MECHANICS AND ACTIVITY MODIFICATIONS. DLS WITH NEUTRAL SPINE ONLY. OK FOR PATIENT TO CONTINUE CURRENT SKTC, PPT, SEATED FLEXION AND HSS AT HOME TOLERATED. AJ LE ROM, STRETCHING AND STRENGTHENING. HEP INSTRUCTION. Balance/Gait/Functional tests - Balance/Special Test Scores Oswestry Low Back Score: 22 Goals Goal 1:: DECREASE C/O LOW BACK AND LE SX'S. Goal Time Frame: 4-6 Weeks Goal Progress: Progressing Goal 2:: IMPROVE PERSONAL CARE, LIFTING, WALKING, SITTING, STANDING, SLEEP, SOCIAL LIFE, TRAVEL AND WORK/HOMEMAKING FUNCTION Goal Time Frame: 4-6 Weeks Goal Progress: Progressing Goal 3:: INSTRUCT IN PROPHYLAXIS Goal Time Frame: 4-6 Weeks Goal Progress: Progressing Anticipated Interventions Patient/Client Instruction: Educate patient on: Condition, Plan of Care, Risk Factors For the Purpose of:: To improve self management Therapeutic Exercise to Include: Strength training, Body mechanics, Postural training, Flexibilty training, Gait and locomotor training, Neuromotor development, In an aquatic setting, Dynamic Lumbar Stabilization For the Purpose of:: To decrease pain, To increase ROM, To improve muscle performance and motor function, To increase tolerance to activity/condition/position, To improve ability of physical actions for home/community/work/leisure, To improve gait and locomotor functions Cryotherapy (ice pack, ice massage): Yes Thermo therapy (hot pack): Yes Ultrasound (thermal/non thermal): Yes For the Purpose of:: To decrease pain, To improve nutrient delivery to tissue Please do not hesitate to contact me at [phone] by phone or if you have questions or concerns regarding this new plan of care! Sincerely, Aleida Burroughs, PT, Cert MDT
--- NOTE | 2022-02-10 10:17 | HP.PTDCSUM_ITS ---
It has been my pleasure to treat PAIGE OLIVEROS referred by Dr. Bijan Garcia DO, with the diagnosis of LUMBAR STENOSIS, SPONYLOSIS WITH RADIC AND SPONDYLOLISTHESIS for a total of 15 visit(s). Discharge Date: 02/10/22 Please see the following information for a summary of their discharge status. Subjective: PATIENT REPORTS THE THERAPY HAS BEEN A LARGE PART OF HER IMPROVEMENT AND SHE FEELS READY TO CONTINUE EX ON HER OWN NOW. HAS BEEN DOING WATER EX INDEP'LY FOR A FEW WKS NOW AND IT IS GOING GOOD. HAD SPASMS IN KNEE YESTERDAY THAT SHE RELATES TO HAVING A VERY BUSY WEEKEND. PATIENT REPORTS SEEING DR. MARROQUIN AND HE SAID SHE DOES NOT HAVE PSORIATIC ARTHIRITS JUST OA SO CONT WITH CURRENT CURRENT POC AND IF NO RELIEF HE WILL DO A FUSION AND DECOMPRESSION. OFF OTEZLA NOW SINCE NO PSORIATIC ARTHRITIS. APPROX 01/08 HAD CAUDAL INJECTION BY DR. JACQUES AND SYMPTOMS STARTED TO COME BACK WITHIN A WK BUT SOME OF THE STIFFNESS IN SI AREA IS BETTER. STILL ON GABAPENTIN. ONLY GET SLIGHT NUMBNESS IN L GREAT TOE RARELY AND ALSO BURNING IN R TOES RARELY NOW. PAIN AND WEAKNESS IN R LE IS BETTER BUT CONTINUES TO GET IT DAILY. MUCH BETTER WITH ADL'S BUT ST ILL R LE WEAKNESS ON STEPS BUT BETTER. Lumbar Spine Pain Intensity (Out of 10): 2 Pelvis Pain Intensity (Out of 10): 2 RLE Pain Intensity (Out of 10): 2 % Improvement: 80 Objective/Function: PATIENT WAS SEEN TODAY FOR RE-ASSESSMENT OF PROGRESS TOWARD THE SET PT GOALS AND THE NEED FOR FURTHER PHYSICAL THERAPY VS READINESS FOR DISCHARGE. PATIENT IS INDEP WITH A POOL PROGRAM AND APPROPRIATE FOR DISCHARGE TO INDEP EX. PATIENT IS AGREEABLE. INDEP GAIT INTO PT WITHOUT ANY AD'S AND FAIR CADANCE. ABLE TO TRANSFER SIT TO STAND WITHOUT EVEN HAVING HANDS ON KNEES. ROM deficit: AJ HIP IR TIGHTNESS. Motor deficit: L LE: HIP 5/5, KNEE 5/5, ANKLE 5/5. R LE: HIP 4/5, KNEE 4/5, ANKLE 5/5. Dural Signs: POSITIVE RIGHT LE. Lumbar mvmt loss: flex - NIL. ext - LENNY. R SG - MOD. L SG - LENNY. PATIENT C/O INCREASED LBP WITH LUMBAR ROM TESTING ALL PLANES BUT PATIENT REPORTS IT IS TOLERABLE. Core strength: POOR. OTHER: PATIENT IS ABLE TO HEEL WALK AND TOE WALK TODAY WITHOUT UE ASSIST. PATIENT ASKED ABOUT RESUMING GYM WEIGHT MACHINE EX'S AND THIS PT RECOMMENDED CONTINUEING POOL EX FOR ANOTHER MONTH OR TWO THEN RE-ASSESS GYM WITH DOLL WIG MAKER ROOTED HAIR OR PT. PATIENT AGREEABLE AND STATES SHE WILL PLAY IT BY EAR. Goal 1:: DECREASE C/O LOW BACK AND LE SX'S. Goal Progress: Goal Met Goal 2:: IMPROVE PERSONAL CARE, LIFTING, WALKING, SITTING, STANDING, SLEEP, SOCIAL LIFE, TRAVEL AND WORK/HOMEMAKING FUNCTION Goal Progress: Goal Met Goal 3:: INSTRUCT IN PROPHYLAXIS Goal Progress: Goal Met Plan: D/C TO [facility] POOL PROGRAM. If there are questions or concerns regarding this patient's physical therapy, please feel free to call me at [phone]. Thank you for the referral of this patient. Sincerely, Aleida Burroughs, PT, Cert MDT Balance/Gait/Functional tests - Balance/Special Test Scores Oswestry Low Back Score: 15
== END 2022-02-10 10:26 | disposition home or self-care (01) ==
LOC: PT 09:30
PROVIDERS: PCP Family Medicine; Referring Provider Orthopaedic Surgery; Visit Provider Orthopaedic Surgery
DX: M47.26 Other spondylosis with radiculopathy, lumbar region; M48.061 Spinal stenosis, lumbar region without neurogenic claudication; M43.16 Spondylolisthesis, lumbar region
CPT/HCPCS: 97113; 97162; 97164; 97530

== ENCOUNTER → 2022-03-19 | Outpatient (CLI) | payer MEDICARE, OTHER, SELFPAY ==
--- NOTE | 2022-03-19 09:37 | BI_ITS ---
MAMMOGRAPHY - BILATERAL SCREENING REASON FOR EXAM: Female, 66 years old. Routine annual screening examination. PERTINENT HISTORY: Grandmother with breast cancer. TECHNIQUE: Digital bilateral breast liz (3D mammographic acquisition) in the CC and MLO projections. 2-D mediolateral oblique (MLO) and craniocaudad (CC) views of both breasts were obtained. CAD: Full Field Digital Mammography with Computer Added Detection was performed. COMPARISON: Comparison is made with prior study dated 04/27/2020 and 04/26/2018. FINDINGS: Breast Composition: There are scattered areas of fibroglandular density. There are no dominant masses or suspicious calcifications. No other significant abnormalities are identified. There has been no significant change since the prior study. BI/SCRN MAMM (CAD)W/LIZ BILAT IMPRESSION: Stable bilateral screening mammogram. Yearly follow-up mammogram recommended. (A) ASSESSMENT CATEGORY: BIRADS Category 1: Negative. A letter regarding these results will be sent to the patient by the facility within 30 days. Approximately 10% of breast cancers are not detected by mammography. A normal mammogram should not delay biopsy of a clinically suspicious abnormality. [id number] Electronically Signed: Oleksandr Magallanes MD at 9:06 EST ,
--- NOTE | 2022-03-19 09:44 | BD_ITS ---
STUDY: DUAL ENERGY X-RAY ABSORPTIOMETRY / DXA REASON FOR EXAM: Female, 66 years old. M810 TECHNIQUE: Bone Mineral Density (BMD) measurements of lumbar spine and bilateral hips were obtained. COMPARISON: None. FINDINGS: Lumbar Spine (L1-L4): g/cm2 (1.101) / T-score (0.5) / Z-score (2.3) Findings are suggestive of normal bone density with a low fracture risk. Left Femur Total: g/cm2 (0.962) / T-score (0.2) / Z-score (1.4) Left Femoral Neck: g/cm2 (0.807) / T-score (-0.4) / Z-score (1.1) Right Femur Total: g/cm2 (0.988) / T-score (0.4) / Z-score (1.6) Right Femoral Neck: g/cm2 (0.780) / T-score (-0.6) / Z-score (0.9) BD/Dexa Bone Density Study IMPRESSION: The patient is considered normal as outlined below according to World Mark Organization (WHO) criteria with a low fracture risk. Reference Information: The T-score is the number of standard deviations above or below the standard which is normal for young adults at their peak bone mineral density. The World Health Organization (WHO) interprets the T-scores as follows: Above -1 Normal bone density Between -1 and -2.5 Osteopenia Equal to / or below -2.5 Osteoporosis As a practical clinical guideline, osteopenia may be graded as follows: Mild -1 through -1.5 Moderate -1.6 through -2.0 Severe -2.1 through -2.4 The Z-score is the number of standard deviations above or below age-matched controls. A Z-score of less than -1.5 would be considered abnormal. References: 1. NIH Osteoporosis and Related Bone Diseases www osteo.org 2. International Society for Clinical Densitometry www iscd.org 3. National Osteoporosis Foundation www nof.org Electronically Signed: Oleksandr Magallanes MD at 12:34 EST ,
== END | disposition home or self-care (01) ==
LOC: OPBD 09:34
PROVIDERS: PCP Family Medicine; Referring Provider Family Medicine; Visit Provider Family Medicine
DX: Z12.31 Encounter for screening mammogram for malignant neoplasm of breast (principal); M85.80 Other specified disorders of bone density and structure, unspecified site; Z80.3 Family history of malignant neoplasm of breast; M81.0 Age-related osteoporosis without current pathological fracture
CPT/HCPCS: 77063; 77067; 77080

== ENCOUNTER → 2022-04-02 | Outpatient (CLI) | payer MEDICARE, OTHER, SELFPAY ==
--- NOTE | 2022-04-02 07:00 | MRI_ITS ---
STUDY: MRI CERVICAL SPINE WITHOUT CONTRAST REASON FOR EXAM: Female, 66 years old. SPONDYLOLISTHESIS TECHNIQUE: Standardized fat and water weighted pulse sequences were obtained in the sagittal and axial planes. COMPARISON: None FINDINGS: Normal foramen magnum and brainstem-cervical cord junction. Normal craniovertebral junction. Normal anterior atlantoaxial articulation. Normal odontoid process. Mild cervical kyphosis at the C5-C6 disc space level. Normal vertebral bodies and posterior osseous elements. C2-3: Normal endplates. Normal disc height, signal and morphology. Normal central canal and intervertebral neural foramina. C3-4: Normal endplates. Normal disc height, signal and morphology. Normal central canal and left intervertebral neural foramen. Mild stenosis of the right intervertebral neural foramen due to moderate right degenerative facet arthropathy. Minimal edema around the right facet joint is suggestive of inflammatory arthropathy. C4-5: Normal endplates. Normal disc height, signal and morphology. Normal central canal and right intervertebral neural foramen. Pronounced stenosis of the left intervertebral neural foramen due to moderately pronounced left degenerative facet arthropathy. Minimal edema in the left facet joint suggesting mild inflammatory arthropathy. C5-6: Normal endplates. Moderate disc space height narrowing. Mild ventral extradural defect due to posterior bone spur. Normal central canal. Moderate stenosis of the intervertebral neural foramina due to osteophytes arising from the uncovertebral joints. C6-7: Normal endplates. Moderate disc space height narrowing. Normal central canal. And left intervertebral neural foramen. Moderate stenosis of the right intervertebral neural foramen due to osteophyte arising from the right uncovertebral joint. Small right C7 benign vertebral body hemangioma. C7-T1: Normal endplates. Normal disc height, signal and morphology. Normal central canal and intervertebral neural foramina. T1-T2 and T2-T3: (Sagittal only). Normal endplates. Normal disc height, signal and morphology. Normal central canal and intervertebral neural foramina. T3-T4: (Sagittal only). Normal endplates. Moderate disc space height narrowing. Minimal degenerative anterolisthesis of T3 on T4. Normal central canal and left intervertebral neural foramen. Moderate stenosis of the right intervertebral neural foramen. Normal cervical cord. Normal included upper thoracic spinal cord, brainstem and cerebellum. Normal visualized soft tissue structures. MRI/Spine Cervical (Routine) IMPRESSION: 1. Mild stenosis of the right C3-C4 intervertebral neural foramen due to moderate right degenerative facet arthropathy and the minimal edema around the right facet joint suggesting mild degenerative inflammatory arthropathy. 2. Pronounced stenosis of the left C4-C5 intervertebral neural foramen due to moderately pronounced left degenerative facet arthropathy and the minimal edema in the left facet joint suggesting minimal inflammatory arthropathy. 3. Moderate stenosis of the C5-C6 intervertebral neural foramina due to osteophytes arising from the uncovertebral joints. 4. Moderate stenosis of the right C6-C7 intervertebral neural foramen due to osteophyte arising from the right uncovertebral joint. 5. Small right C7 benign vertebral body hemangioma. 6. Minimal degenerative anterolisthesis of T3 on T4 and moderate stenosis of the right T3-T4 intervertebral neural foramen. 7. No MRI evidence of cervical disc extrusion or disc protrusion. 8. Normal cervical spinal cord. Electronically Signed: Fidel Joya MD at 11:39 EST ,
== END | disposition home or self-care (01) ==
LOC: MRI 08:05
PROVIDERS: PCP Family Medicine; Referring Provider Orthopaedic Surgery Orthopaedic Surgery of the Spine; Visit Provider Orthopaedic Surgery Orthopaedic Surgery of the Spine
DX: M43.12 Spondylolisthesis, cervical region (principal); M47.812 Spondylosis without myelopathy or radiculopathy, cervical region
CPT/HCPCS: 72141

== ENCOUNTER → 2022-09-04 | Outpatient (CLI) | payer MEDICARE, OTHER, SELFPAY ==
[2022-09-04 07:01] LABS: Absolute Lymphocyte Count 1.94 X10^3/uL (0.83-4.51); Absolute Neutrophil Count 2.8 X10^3/uL (2.0-7.7); Basophil# 0.03 X10^3/uL; Basophil% 0.5 % (0-1); Eosinophil# 0.32 X10^3/uL; Eosinophils% 5.7 % (0-5); Hematocrit 37.4 % (37-47); Lymphocyte # 1.94 X10^3/ul (0.83-4.51); Lymphocyte % 34.8 % (19-41); Mean Corp Hgb Conc 32.1 g/dL (32-36); Mean Corpuscular Volume 87.4 fL (81-99); Mean Platelet Vol. 10.3 fl (6.2-12.0); Monocyte# 0.44 X10^3/uL; Monocyte% 7.9 % (0-10); NRBC Flagged by Analyzer 0 % (0-5); Neutrophil # 2.83 X10^3/uL (2.7-7.7); Neutrophil % 50.7 % (47-70); Platelet Count 248 K/mm3 (150-450); RBC Distribution Width CV 12.8 % (11.6-14.6); RBC Distribution Width SD 40.8 fl (35.1-43.9); Red Blood Count 4.28 M/mm3 (4.2-5.4); White Blood Count 5.6 K/mm3 (4.4-11.0)
[2022-09-04 08:31] LABS: ALB/GLOB Ratio 0.9 RATIO (0.9-2.4); AST(SGOT) 18 U/L (15-37); Alanine Aminotransfer ALT/SGPT 22 U/L (13-56); Albumin, Serum 3.2 g/dL (3.2-5.0); Alkaline Phosphatase 79 U/L (45-117); Anion Gap 5 (5-15); BUN 13 mg/dL (7-18); BUN/Creat Ratio 21.5 RATIO (10-20); Calcium,Total 8.6 mg/dL (8.5-10.1); Chloride 105 mmol/L (98-107); Cholesterol 194 mg/dL (200); EST Glomerular Filtration Rate 105 mL/min (>60); Est Glom Filt Rate - Afr Amer 128 mL/min (>60); Globulin 3.5 g/dL (2.2-4.2); Glucose 93 mg/dL (74-106); High Density Lipoprotein 36 mg/dL; Potassium 3.6 mmol/L (3.5-5.1); Protein, Total 6.7 g/dL (6.4-8.2); Sodium Level 138 mmol/L (136-145); T4 Free Direct 0.87 ng/dL (0.76-1.46); Thyroid Stim Hormone (TSH) 1.44 uIU/mL (0.358-3.74); Triglycerides 224 mg/dL; Very Low Density Lipoprotein 45 mg/dL (5-40)
[2022-09-04 13:34] LABS: Internal QC Validated? YES +Cl - CLEAR BKGD; Monotest Negative (Negative)
[2022-09-09 01:06] LABS: Lyme IgG P18 Ab Absent (.); Lyme IgG P23 Ab Absent (.); Lyme IgG P28 Ab Absent (.); Lyme IgG P30 Ab Absent (.); Lyme IgG P39 Ab Absent (.); Lyme IgG P41 Ab Absent (.); Lyme IgG P45 Ab Absent (.); Lyme IgG P58 Ab Absent (.); Lyme IgG P66 Ab Absent (.); Lyme IgG P93 Ab Absent (.); Lyme IgG WB Interpretation Negative (.); Lyme IgM P23 Ab Present (.); Lyme IgM P39 Ab Absent (.); Lyme IgM P41 Ab Absent (.); Lyme IgM WB Interpretation Negative (.)
== END | disposition home or self-care (01) ==
LOC: LAB 06:31
PROVIDERS: PCP Family Medicine; Referring Provider Nurse Practitioner Family; Visit Provider Nurse Practitioner Family
DX: Z00.00 Encounter for general adult medical examination without abnormal findings (principal); E03.9 Hypothyroidism, unspecified; R59.9 Enlarged lymph nodes, unspecified
CPT/HCPCS: 36415; 80053; 80061; 84439; 84443; 85025; 86308; 86617

== ENCOUNTER → 2022-09-11 | Outpatient (CLI) | payer MEDICARE, OTHER, SELFPAY ==
--- NOTE | 2022-09-11 09:51 | US_ITS ---
INDICATION: ENLARGED POSTERIOR NODES EXAMINATION: Ultrasound US Head/Neck Soft Tissue TECHNIQUE: Templeton scale and color doppler imaging was performed of the neck soft tissues.. COMPARISON: FINDINGS: Mildly prominent lymph nodes with fatty hilum are noted in the left neck soft tissues with the 2 largest measuring up to 1.4 cm in greatest dimension. An additional 1.1 cm and 8.7 cm lymph node is identified. US/Head/Neck Soft Tissue IMPRESSION: Left neck lymph nodes as described. Electronically Signed: Bridger Parra, at 10:56 EDT ,
== END | disposition home or self-care (01) ==
LOC: US 09:49
PROVIDERS: PCP Family Medicine; Referring Provider Nurse Practitioner Family; Visit Provider Nurse Practitioner Family
DX: R59.0 Localized enlarged lymph nodes (principal)
CPT/HCPCS: 76536

== ENCOUNTER → 2022-10-14 | Outpatient (CLI) | payer MEDICARE, OTHER, SELFPAY ==
[2022-10-14 10:19] LABS: Erythrocyte Sedimentation Rate 7 mm/hr (0-30)
[2022-10-14 10:53] LABS: Vitamin B12 406 pg/mL (211-911)
[2022-10-14 11:03] LABS: Anion Gap 7 (5-15); BUN 14 mg/dL (7-18); BUN/Creat Ratio 23.7 RATIO (10-20); CPK Total, Creatine Kinase 38 U/L (26-192); CRP 6.85 mg/L (0.0-3.0); Calcium,Total 9.2 mg/dL (8.5-10.1); Chloride 105 mmol/L (98-107); Creatinine, Serum 0.59 mg/dL (0.55-1.02); EST Glomerular Filtration Rate 108 mL/min (>60); Est Glom Filt Rate - Afr Amer 131 mL/min (>60); Glucose 100 mg/dL (74-106); Potassium 3.8 mmol/L (3.5-5.1); Rheumatoid Factor < 10.0 IU/mL (<15); Sodium Level 139 mmol/L (136-145)
[2022-10-15 12:08] LABS: ANTINUCLEAR ANTIBODIES DIRECT Negative (Negative)
[2022-10-17 04:07] LABS: Aldolase 3.8 U/L (3.3-10.3); Free Kappa Light Chains 14.4 mg/L (3.3-19.4); Free Lambda Light Chains 12.5 mg/L (5.7-26.3); Myoglobin, Serum 27 ng/mL (25-58)
== END | disposition home or self-care (01) ==
LOC: MTLAB 07:10
PROVIDERS: PCP Family Medicine; Referring Provider Psychiatry & Neurology Neurology; Visit Provider Psychiatry & Neurology Neurology
DX: M19.90 Unspecified osteoarthritis, unspecified site (principal); R20.2 Paresthesia of skin; M79.10 Myalgia, unspecified site
CPT/HCPCS: 36415; 80048; 82085; 82550; 82607; 82746; 83874; 83883; 84425; 85652; 86038; 86140; 86225; 86235; 86431

== ENCOUNTER 2022-11-27 13:30 | Outpatient (RCR) | payer MEDICARE, OTHER, SELFPAY ==
--- NOTE | 2022-09-18 14:40 | HP.PTEVAL_ITS ---
Patient's Visit Information Visit Information Visit Information: PAIGE OLIVEROS is a 66 year old F referred to Physical Therapy by Dr. Carolyn Adame MD with a diagnosis of CERVICAL SPONDYLOSIS. Date of Evaluation: 09/18/22 Physical Therapist: Aleida Burroughs PT, Cert MDT Visit Plan Frequency: 2-3x /Week Duration: 4-6 Weeks Plan: TRIAL OF VERY GENTLE MANUAL CERVICAL TRACTION/DISTRACTION THEN MECHANICAL CERVICAL TRACTION INDICATED. CONSIDER HOME MARIE TX UNIT IF RESPONDS WELL TO TX IN CLINIC. *CHECK MRI RESULTS FOR L SHLD* POSTURE CORRECTION/STRENGTHENING, INSTRUCTION IN APPROPRIATE BODY MECHANICS AND ACTIVITY MODIFICATIONS. AJ UE ROM, STRETCHING AND STRENGTHENING. HEP INSTRUCTION. Subjective Subjective: Diagnosis: CERVICAL SPONDYLOSIS Work/Leisure: RETIRED. 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 TAKES CARE OF AUNT 2 DAYS A WK THAT HAS Alzheimer's dz. Does not physically have to take care of aunt. Present symptoms: PAIN IN L NECK AND SHLD (PATIENT REPORTS POSSIBLE L ROTATOR CUFF TEAR). CONTIUES TO HAVE PINS AND NEEDLES AND JABS ALL OVER BODY. ALSO HAS PAIN IN LOWER BACK AND R LEG. CRAMPS IN BOTH FEET. FATIGUES EASILY. SWOLLEN LYMPH NODES L NECK. Present since: OCT 2021 (L SHLD HAS HURT SINCE 1998 THOUGH). Pain Scale: Worst - 7/10 Least - 0/10 Currently: 3/10 Commenced as a result of: NO APPARENT REASON OTHER THAN POSSIBLY DEALING WITH BACK SPASMS. Symptoms at onset: PINS AND NEEDLES ENTIRE BODY. Worse: LEGS GIVE OUT WHEN STANDING UP IF SITTING LONGER THAN 1/2 HR. LIFTING. SITTING AND BOUNCING IN THE CAR. GETTING UP IN THE MORNING AND BEFORE BED AT NIGHT. PUTTING ARMS UP ON NOODLE IN THE POOL. Better: LYRICA HELPS WITH PINS AND NEEDLES BUT DOES NOT TAKE IT ALL AWAY. UP MOVING AROUND AND KEEPING BUSY. Disturbed sleep: PATIENT REPORTS SHE WAKES UP WITH PAIN AND GOES TO BED WITH PAIN. Previous history/Previous treatment: AQUATIC THERAPY FOR LOW BACK. HAS BEEN DOING CHIROPRACTIC FOR YEARS OFF AND ON BUT MORE REGULARLY RECENTLY. CHIROPRACTOR DOES ELECTRICAL STIM TO UPPER, MIDDLE AND LOWER BACK - HELPS FOR ABOUT A COUPLE DAYS SHE THINKS. WENT TO CHIROPRACTOR TODAY. CHIROPRACTOR USES actuator ON NECK AND STRETCHES NECK BUT DOES NOT CRACK NECK. DR. JACQUES FOR PAIN MGMT. JULY 25 2022 NECK INJECTION. LAST VISIT WITH PAIN MGMT WAS END OF JULY. NO MORE INJECTION PLANNED AT THIS TIME. STATES THE JULY 25 INJECTION HELPED HER PAIN BUT NOT PINS AND NEEDLES. ONLY LYRICA HELPS PINS AND NEEDLES. Dizziness: YES Tinnitis: YES Nausea: NO Shortness of Breath: YES - INTERMITTENT Difficulty Swollowing: NO Gait: LEGS FEEL LIKE THEY ARE GOING TO GIVE OUT WHEN GETS UP AT FIRST THEN OK. LEGS GIVE OUT INTERMITTENTLY AND DIFFICULTY PICKING FEET UP. 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 BUMPED UP L CALHOUN AND INCREASED NECK PAIN AND MAYBE SOME WHIPLASH. Accidents: FALL 09/17/22 Unexplained weight loss: NO Imaging: MRI OF L SHLD PENDING 09/23/22. MRI OF NECK DONE AT [facility] - SEE EMR. PMH/Recent major surgery: OSTEOPENIA. HYPOTHYROIDISM. RIGHT TKR FEB 13 2022. L TKR 2014. PSORIASIS HANDS AND FEET. OTHER: SHARMIN'T PENDING WITH NEUROLOGIST 10/13/22. PATIENT REPORTS SHE EX'S 5-6 X'S A WK DOING POOL AND LAND EX'S. Objective Objective: Sitting Posture/Standing Posture: POOR. FH. RSH'S. LEFT SHLD LEVEL LOWER THAN RIGHT. DOWAGER'S HUMP. Active Correction of posture: LOW BACK, NECK AND SHLD PAIN GET BETTER. Other Observations: THIS PATIENT AMBULATES SLOWLY INTO PHYSICAL THERAPY INDEP'LY WITHOUT ANY AD'S OR LOB. SHORT AJ STRIDE LENGTH AND SHUFFLE TYPE GAIT PATTERN. Sensory deficit: AJ UE LIGHT TOUCH SENSATION GROSSLY INTACT AND SYMMETRICAL ROM deficit: RIGHT UE WFL. L UE: SHLD FLEX 75 DEG. L SHLD IR 38 DEG, ER 75 DEG. L ELBOW, WRIST AND HAND WFL Motor deficit: RIGHT HANDED WITH R ROCKET ENGINE MECHANIC STRENGTH OF 32 LBS. R SHLD FLEX 4-/5, ABD 3+/5, IR 4/5, ER 4-/5. ELBOW 5/5. L UE: SHLD FLEX 2+/5, IR 2+/5, ER 3-/5, ELBOW 4/5 AND L ROCKET ENGINE MECHANIC STRENGTH 30 LBS. Reflexes: R BICEP AND L FOREARM 2/3. L BICEP AND R FOREARM ABSENT. Dural Signs: POSITIVE AJ UE'S. Cervical Mvmt Loss: Flex: NIL Pro: NIL Ext: MOD TO LENNY Ret: LENNY RSB: MOD LSB: MIN R Rot: MIN TO MOD L Rot: MOD TO LENNY PATIENT DENIES INCREASED PAIN, NUMBNESS OR TINGLING WITH CERVICAL ROM TESTING ALL PLANES TODAY. Postural strength: POOR Palpation: TENDERNESS WITH PALPATION THROUGHOUT UPPER THORACIC AND ENTIRE CERVICAL SPINE. ALSO TENDER IN AJ SHLD'S L >R. OTHER: SUPINE GENTLE MANUAL DISTRACTION RESULTS IN PATIENT REPORTING FEELING GOOD DURING THE PULL BUT A BRIEF SHOOTING PAIN INTO RIGHT SHLD BLADE REGION UPON RELEASE. Balance/Special Test Scores Oswestry Neck Score: 17 Goals Goal 1:: DECREASE C/O NECK AND UE SX'S. Goal Time Frame: 4-6 Weeks Goal 2:: IMPROVE PERSONAL CARE, LIFTING, READING, SLEEP, WORK, DRIVING AND RECREATIONAL FUNCTION. Goal Time Frame: 4-6 Weeks Goal 3:: INSTRUCT IN PROPHYLAXIS Goal Time Frame: 4-6 Weeks Anticipated Interventions Patient/Client Instruction: Educate patient on: Condition, Plan of Care and Risk Factors For the Purpose of:: To improve self management Therapeutic Exercise to Include: Strength training, Postural training, Flexibilty training, Neuromotor development and Scapular Strength/Stabilization For the Purpose of:: To decrease pain, To increase ROM, To improve muscle performance and motor function, To increase tolerance to activity/condition/position and To improve ability of physical actions for home/community/work/leisure Manual Therapy Techniques to Include: Mobilization Comment: NECK TOLERATED/INDICATED For the Purpose of:: To decrease pain Intermittent cervical traction: Yes For the Purpose of:: To decrease pain Text: Thank you for the opportunity to evaluate your patient. For Medicare and Medicare HMO plans, please review the plan of care and approve it. It will need to be FAXED BACK to us at [phone] for Medicare purposes. For Medicare only, by signing this I certify the plan of care. Please let me know if there are questions or concerns regarding this plan of care. Physician Signature: Date:
--- NOTE | 2022-11-27 14:01 | HP.PTDCSUM_ITS ---
Discharge Summary D/C summary: It has been my pleasure to treat PAIGE OLIVEROS referred by Dr. Carolyn Adame MD, with the diagnosis of CERVICAL SPONDYLOSIS for a total of 14 visit(s). Discharge Date: Please see the following information for a summary of their discharge status. Subjective Subjective: PATIENT REPORTS HER NECK AND HER L ARM PAIN ARE BETTER. PATIENT REPORTS HE CAN TURN HER NECK TO THE LEFT NOW TO SEE WHEN SHE IS DRIVING AND SHE CAN REACH BACK BETTER TO PUT HER SEAT BELT ON. SHE REPORTS SHE CAN REACH UP WITH HER LEFT ARM BETTER TO GET THING OUT OF THE CUPBOARD TOO. 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 SHE REPORTS THAT WHEN SHE IS DOING HER EX'S IN THE POOL SHE CAN PUT HER ARMS UP ON THE NOODLE NOW IN THE DEEP END WITHOUT IT HURTING HER NECK OR ARM. I'M NOT GETTING THE ZINGS DOWN MY ARM ANYMORE. SHE REPORTS SHE GOT HER HOME TRACTION UNIT 2 DAYS AGO AND SHE HAS TRIED IT AT HOME WITH GOOD RESULT. PATIENT REPORTS SHE GOT SOME BURNING IN HER SCALP AFTER LAST TREATMENT (NOV 11 2022) FOR A FEW DAYS THAT WENT AWAY THAT SHE RELATES TO THE INCREASED POUNDAGE. SHE STATES SHE DECIDED TO GET HER OWN HOME UNIT BECAUSE SHE DIDN'T THINK [facility] [employer] WOULD COVER ONE AT THE [employer] THAT WORKS FOR HER (CLOSER TO 15 LBS). SHE REPORTS SHE HAD A FOLLOW UP WITH DR. BRAY AND SINCE THE TRACTION IS HELPING HER ARM SO MUCH TO JUST CONTINUE WITH HER EX'S AND TRACTION AT THIS POINT. NO FURTHER FOLLOW UP SCHEDULED WITH DR. BRAY. EMGS PENDING 12/02/22 ADN 12/10/22. FOLLOW UP PENDING WITH DR. FAIRCHILD JAN 2023. PATIENT REPORTS SHE FEELS GOOD ABOUT CONTINUING WITH HER EX'S AND HOME TRACTION ON HER OWN AT THIS POINT. Pain WHOLE BODY: Pain Intensity (Out of 10): 0 LB/TAILBONE: Pain Intensity (Out of 10): 2 NECK: Pain Intensity (Out of 10): 2 L SHLD: Pain Intensity (Out of 10): 2 Overall Improvement % Improvement: 80 Objective Objective/Function: PATIENT WAS SEEN TODAY FOR RE-ASSESSMENT OF PROGRESS TOWARD THE SET PT GOALS AND THE NEED FOR FURTHER PHYSICAL THERAPY VS READINESS FOR DISCHARGE. UPON EXAM TODAY: ROM deficit: RIGHT UE WFL. L UE: SHLD FLEX 155 DEG. L SHLD IR 70 DEG, ER 75 DEG. L ELBOW, WRIST AND HAND WFL Motor deficit: RIGHT HANDED WITH R DIRECTOR OF ACCOUNTS RECEIVABLE STRENGTH OF 33 LBS. R SHLD FLEX 4-/5, ABD 3+/5, IR 4/5, ER 4-/5. ELBOW 5/5. L UE: SHLD FLEX 3-/5, ABD 2+/5, IR 4-/5, ER 3-/5, ELBOW 4/5 AND L DIRECTOR OF ACCOUNTS RECEIVABLE STRENGTH 40 LBS. Cervical Mvmt Loss: Flex: NIL Pro: NIL Ext: MOD TO LENNY Ret: MOD RSB: MOD LSB: MOD R Rot: MIN L Rot: MIN PATIENT C/O INCREASED L NECK PAIN WITH L SB AND RETRACTION ROM TESTING. Postural strength: POOR Palpation: NO ACUTE UPPER THORACIC, NECK, OCCIPUT OR SHLD TENDERNESS WITH PALPATION TODAY. Goals Goal 1:: DECREASE C/O NECK AND UE SX'S. Goal Progress: Goal Met Goal 2:: IMPROVE PERSONAL CARE, LIFTING, READING, SLEEP, WORK, DRIVING AND RECREATIONAL FUNCTION. Goal Progress: Goal Met Goal 3:: INSTRUCT IN PROPHYLAXIS Goal Progress: Goal Met Plan Plan: D/C TO INDEP EX AND USE OF HOME MARIE CTX UNIT. PATIENT AGREEABLE. D/C Information d/c sentence: If there are questions or concerns regarding this patient's physical therapy, please feel free to call me at [phone]. Thank you for the referral of this patient. Sincerely, Aleida Burroughs, PT, Cert MDT Balance/Gait/Functional tests Balance/Special Test Scores Oswestry Neck Score: 11 Improvement % Improvement: 80
== END 2022-11-27 19:00 | disposition home or self-care (01) ==
LOC: PT 13:30
PROVIDERS: PCP Family Medicine; Referring Provider Orthopaedic Surgery; Visit Provider Orthopaedic Surgery Orthopaedic Surgery of the Spine
DX: M47.812 Spondylosis without myelopathy or radiculopathy, cervical region (principal)
CPT/HCPCS: 97012; 97140; 97162; 97164; 97530

== ENCOUNTER → 2022-12-02 | Outpatient (CLI) | payer MEDICARE, OTHER, SELFPAY ==
--- NOTE | 2022-12-02 08:45 | NEURO_ITS ---
NCS and/or EMG Patient Report Ordering Doctor: Jules Payne DATE OF SERVICE: 12/02/22 Clinical Summary: 67 year old female presenting with complaints of numbness/tingling, and pain along with weakness in the right upper extremity. She has a history of right carpal tunnel release surgery. This EMG/NCS was performed to evaluate for right carpal tunnel syndrome, right brachial plexopathy, and/or cervical radiculopathy. Nerve Conduction Studies Summary: The right median-D2 SNAP distal latency was prolonged. Needle Examination Summary: There was a higher proportion of motor unit action potentials with reduced recruitment, increased amplitude, increased duration, and polyphasia in the right abductor pollicis brevis muscle. Impression: There is electrodiagnostic evidence of the following - 1) Mild, right median mononeuropathy at the wrist (carpal tunnel syndrome), with sensory fiber demyelination. There were neurogenic changes seen in the right abductor pollicis brevis, which is likely chronic/remote sequelae from her previous bout of carpal tunnel syndrome s/p carpal tunnel release surgery. Clinical correlation is advised. There was no electrodiagnostic evidence of a right cervical radiculopathy or bra chial plexopathy. Multi Select Codes Neurology Neurology Interp Codes: 17197-86 Musc test done w/n test comp (interp) (1)
== END | disposition home or self-care (01) ==
LOC: PSN 07:23
PROVIDERS: PCP Family Medicine; Referring Provider Psychiatry & Neurology Neurology; Visit Provider Psychiatry & Neurology Neurology
DX: R20.2 Paresthesia of skin (principal); M54.2 Cervicalgia
CPT/HCPCS: 95886; 95910

== ENCOUNTER → 2022-12-10 | Outpatient (CLI) | payer MEDICARE, OTHER, SELFPAY ==
--- NOTE | 2022-12-10 15:14 | NEURO ---
NCS and/or EMG Patient Report Ordering Doctor: Jules Payne DATE OF SERVICE: 12/10/22 Jaylin she has complaints of numbness and tingling in both legs but in also throughout the body. She reports cramping and burning in the toes. She reports lower back pain that radiates into both lower limbs. Electrodiagnostic findings: Peroneal motor nerve on the right side demonstrates normal distal latency, amplitude and conduction velocity. Left peroneal motor nerve, recorded at the tibialis anterior, demonstrates normal distal latency with reduced amplitude and normal conduction velocity. Tibial motor response is within normal limits bilaterally. Left peroneal motor response recorded at the tibialis anterior shows normal distal latency and amplitude. Normal peroneal and tibial F- waves. Normal H-reflex bilaterally. Sensory responses are within normal limits. Electrodiagnostic impression: This is a normal electrodiagnostic study of the lower limbs. There is no electrodiagnostic evidence for peripheral polyneuropathy or lumbosacral radiculopathy. There is no electrodiagnostic evidence for myopathy. Multi Select Codes Neurology Neurology Interp Codes: 53835-93 Musc test done w/n test comp (interp) (2) and 11394-15 Nrv cndj test 11-12 studies (interp)
== END | disposition home or self-care (01) ==
LOC: PSN 06:52
PROVIDERS: PCP Family Medicine; Referring Provider Psychiatry & Neurology Neurology; Visit Provider Psychiatry & Neurology Neurology
DX: R20.2 Paresthesia of skin (principal); M54.16 Radiculopathy, lumbar region; M54.50 Low back pain, unspecified
CPT/HCPCS: 95886; 95912

== ENCOUNTER → 2023-03-31 | Outpatient (CLI) | payer MEDICARE, OTHER, SELFPAY | END | disposition home or self-care (01) | LOC: SL 09:32 | PROVIDERS: PCP Family Medicine; Visit Provider Psychiatry & Neurology Neurology | DX: G47.10 Hypersomnia, unspecified (principal) | CPT/HCPCS: 95806 ==

== ENCOUNTER → 2023-06-29 | Outpatient (CLI) | payer MEDICARE, OTHER, SELFPAY ==
--- NOTE | 2023-06-29 07:42 | MRI_ITS ---
STUDY: MRI LUMBAR SPINE WITHOUT CONTRAST REASON FOR EXAM: Female, 67 years old. low back pain; left lower extremity radicular pain TECHNIQUE: Standardized fat and water weighted pulse sequences were obtained in the sagittal and axial planes. COMPARISON: 11/18/2021 FINDINGS: T12-L1: Normal endplates. Normal disc height, hydration and morphology. Normal bilateral facet joints. Normal central canal and bilateral lateral recesses. Normal bilateral intervertebral neural foramina. Normal lumbar lordosis. Mild levoscoliosis centered at L3. Normal conus medullaris that terminates at the L1/L2. L1-2: No change in a mild bilobed disc protrusion which produces mild spinal stenosis but no neural foraminal stenosis. L2-3: Mild bilateral facet hypertrophy and ligament flavum hypertrophy. No change in the moderate bilobed disc protrusion which produces moderate spinal stenosis and mild bilateral neural foraminal stenosis. L3-4: Mild bilateral facet hypertrophy and moderate ligament flavum hypertrophy. No change in a mild broad disc protrusion which produces mild spinal stenosis and mild bilateral neural foraminal stenosis. L4-5: Mild bilateral facet hypertrophy and ligament flavum hypertrophy. No change in a mild broad disc protrusion which produces mild spinal stenosis and mild bilateral neural foraminal stenosis. L5-S1: No change in a mild broad disc protrusion asymmetric left which produces mild spinal stenosis, moderate right neural foraminal stenosis and severe left neural foraminal stenosis. Normal visualized sacral ala. Normal visualized paraspinous soft tissue structures. MRI/Spine Lumbar (Routine) IMPRESSION: No change from 11/18/2021. Electronically Signed: Merrill Hoffman MD at 23:55 EDT ,
== END | disposition home or self-care (01) ==
LOC: MRI 07:19
PROVIDERS: PCP Family Medicine; Referring Provider Psychiatry & Neurology Neurology; Visit Provider Psychiatry & Neurology Neurology
DX: M54.50 Low back pain, unspecified (principal); M54.16 Radiculopathy, lumbar region
CPT/HCPCS: 72148

== ENCOUNTER 2023-08-18 08:00 | Outpatient (RCR) | payer MEDICARE, OTHER, SELFPAY ==
--- NOTE | 2023-07-22 11:29 | HP.PTEVAL ---
Patient's Visit Information Visit Information Visit Information: PAIGE OLIVEROS is a 67 year old F referred to Physical Therapy by NAYE SCHMITT with a diagnosis of R RTC tear. Date of Evaluation: 07/16/23 Physical Therapist: Ron Keenan DPT Visit Plan Frequency: 2x /Week Duration: 4 Weeks Plan: Start with AROM of R shoulder progressing this to HEP. may progress inferior glides if needed to restore full motion. 2) Progress scapular and periscapular strengthening, with slowly increasing loading of RTC to aide in tissue modification. 3) may use ice and or US as needed for pain control. Subjective Subjective: Pt. is here today for her initial evaluation with diagnosis of L RTC tear, L AC joint DJD, and rupture of proximal biceps tendon. Pt. reports hurting her arm again on June 07 and felt a pop in her L shoulder. Pt. was recommended to have surgery, but wanted to trial PT first. Pt. reports having increased soreness with driving, dressing. Pt. is having some difficulty sleeping as well. Pt. recently has had a lot going on her life and would really like to hold off on any surgery with hopes of increasing strength to allow for all activities without limitations. Pt. reports 3/10 pain at rest, with 6/10 with activities. Pt. denies N/T in either UE. MRI: multiple RTC tears. partial supra, sub and infra tears (largest at supra). Min/mod OS at GH joint, partial long head biceps tear. Pain L shoulder: Pain Intensity (Out of 10): 3 Pain Intensity Range: 0 and 6 Objective Objective: POSTURE: pt. has slight rounded shoulders with R UE in guarded posture. PALPTION: Pt. has tenderness along bicipital groove, and sub acromial space. NEURO: normal throughout BUEs and normal DTR of BUEs. ROM: R shoulder PROM: flexion 170deg, abd 165deg, ER at 90deg of abd 75deg, IR at 90deg of Abd 45deg. AROM: flexion 155deg (aberrant motion), abd 130deg, functional ER C1 aberrant motion, functional IR L3. Pt. had increased pain with all active motions. MMT: LUE: shoulder: flexion 17#, abd 13#, ext 23#, ER 13#, IR 17#. R shoulder: flexion 5#, abd 4#, Er 4#, IR 7#, ext 14#. Pt. had increased pain with all R shoulder MMT as well. Balance/Special Test Scores Quick DASH Score: 36.3625 Goals Goal 1:: LTG: Pt. to be I with HEP for scapular and periscapular strengthening. Goal Time Frame: 4-6 Weeks Goal 2:: LTG: Pt. to have full R shoulder ROM with decreased aberrant motion with 0-2/10 pain. Goal Time Frame: 4-6 Weeks Goal 3:: LTG: Pt. to have symmetrical strength between B shoulders allowing for increased tolerance to all recreational and gym activities. 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 Goal Time Frame: 4-6 Weeks Rehabilitation Potential Physical Therapy Diagnosis: Pt has signs and symptoms consistent with R RTC tear. Pt. has marked hypomobility and weakness, both limited secondary to increased pain. Pt. would benefit from PT to increase her scapular and periscapular strength to reduce stress to RTC with all functional and recreational activities. Rehabilitation Potential: Good Anticipated Interventions Patient/Client Instruction: Educate patient on: Condition, Plan of Care, Risk Factors and Benefits of Fitness Program For the Purpose of:: To foster healthy habits, To improve decision making, To facilitate caregiver knowledge, To improve self management, To prevent re-injury and To improve ability to perform tasks related to life management Therapeutic Exercise to Include: Strength training, Power training, Endurance training, Flexibilty training, Passive ROM, Active ROM and Scapular Strength/Stabilization For the Purpose of:: To decrease pain, To increase ROM, To improve nutrient delivery to tissue, To increase oxygenation perfusion, To improve muscle performance and motor function, To improve ability to perform ADL's and To increase tolerance to activity/condition/position Manual Therapy Techniques to Include: Mobilization For the Purpose of:: To decrease pain, To decrease swelling/inflammation, To increase ROM and To improve nutrient delivery to tissue Cryotherapy (ice pack, ice massage): Yes Ultrasound (thermal/non thermal): Yes For the Purpose of:: To decrease pain, To decrease swelling/inflammation and To increase ROM Text: Thank you for the opportunity to evaluate your patient. For Medicare and Medicare HMO plans, please review the plan of care and approve it. It will need to be FAXED BACK to us at [phone] for Medicare purposes. For Medicare only, by signing this I certify the plan of care. Please let me know if there are questions or concerns regarding this plan of care. Physician Signature: Date:
--- NOTE | 2023-08-18 08:24 | HP.PTEVAL_ITS ---
Patient's Visit Information Visit Information Visit Information: PAIGE OLIVEROS is a 67 year old F referred to Physical Therapy by NAYE SCHMITT with a diagnosis of L RTC tear. Date of Evaluation: 07/16/23 Physical Therapist: Ron Keenan DPT Visit Plan Frequency: 2x /Week Duration: 4 Weeks Plan: At this point in time I want Paige to follow up with physician as therapy did not help her pain much. Pt. reports feeling stronger, but not much help with her pain. Subjective Subjective: Pt. is here today for her initial evaluation with diagnosis of L RTC tear, L AC joint DJD, and rupture of proximal biceps tendon. Pt. reports hurting her arm again on June 07 and felt a pop in her L shoulder. Pt. was recommended to have surgery, but wanted to trial PT first. Pt. reports having increased soreness with driving, dressing. Pt. is having some difficulty sleeping as well. Pt. recently has had a lot going on her life and would really like to hold off on any surgery with hopes of increasing strength to allow for all activities without limitations. Pt. reports 3/10 pain at rest, with 6/10 with activities. Pt. denies N/T in either UE. MRI: multiple RTC tears. partial supra, sub and infra tears (largest at supra). Min/mod OS at GH joint, partial long head biceps tear. Pain L shoulder: Pain Intensity (Out of 10): 3 Pain Intensity Range: 0 and 6 Objective Objective: POSTURE: pt. has slight rounded shoulders with R UE in guarded posture. PALPTION: Pt. has tenderness along bicipital groove, and sub acromial space. NEURO: normal throughout BUEs and normal DTR of BUEs. ROM: R shoulder PROM: flexion 170deg, abd 165deg, ER at 90deg of abd 75deg, IR at 90deg of Abd 45deg. AROM: flexion 155deg (aberrant motion), abd 130deg, functional ER C1 aberrant motion, functional IR L3. Pt. had increased pain with all active motions. MMT: LUE: shoulder: flexion 17#, abd 13#, ext 23#, ER 13#, IR 17#. R shoulder: flexion 5#, abd 4#, Er 4#, IR 7#, ext 14#. Pt. had increased pain with all R shoulder MMT as well. Balance/Special Test Scores Quick DASH Score: 50.0000 Goals Goal 1:: LTG: Pt. to be I with HEP for scapular and periscapular strengthening. Goal Time Frame: 4-6 Weeks Goal 2:: LTG: Pt. to have full R shoulder ROM with decreased aberrant motion with 0-2/10 pain. Goal Time Frame: 4-6 Weeks Goal 3:: LTG: Pt. to have symmetrical strength between B shoulders allowing for increased tolerance to all recreational and gym activities. 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 Goal Time Frame: 4-6 Weeks Rehabilitation Potential Physical Therapy Diagnosis: Pt has signs and symptoms consistent with R RTC tear. Pt. has marked hypomobility and weakness, both limited secondary to increased pain. Pt. would benefit from PT to increase her scapular and periscapular strength to reduce stress to RTC with all functional and recreational activities. Rehabilitation Potential: Good Anticipated Interventions Patient/Client Instruction: Educate patient on: Condition, Plan of Care, Risk Factors and Benefits of Fitness Program For the Purpose of:: To foster healthy habits, To improve decision making, To facilitate caregiver knowledge, To improve self management, To prevent re-injury and To improve ability to perform tasks related to life management Therapeutic Exercise to Include: Strength training, Power training, Endurance training, Flexibilty training, Passive ROM, Active ROM and Scapular Strength/Stabilization For the Purpose of:: To decrease pain, To increase ROM, To improve nutrient delivery to tissue, To increase oxygenation perfusion, To improve muscle performance and motor function, To improve ability to perform ADL's and To increase tolerance to activity/condition/position Manual Therapy Techniques to Include: Mobilization For the Purpose of:: To decrease pain, To decrease swelling/inflammation, To increase ROM and To improve nutrient delivery to tissue Cryotherapy (ice pack, ice massage): Yes Ultrasound (thermal/non thermal): Yes For the Purpose of:: To decrease pain, To decrease swelling/inflammation and To increase ROM Text: Thank you for the opportunity to evaluate your patient. For Medicare and Medicare HMO plans, please review the plan of care and approve it. It will need to be FAXED BACK to us at [phone] for Medicare purposes. For Medicare only, by signing this I certify the plan of care. Please let me know if there are questions or concerns regarding this plan of care. Physician Signature: Date:
--- NOTE | 2023-08-20 14:16 | HP.PTDCSUM_ITS ---
Discharge Summary D/C summary: It has been my pleasure to treat PAIGE OLIVEROS referred by NAYE SCHMITT, with the diagnosis of L RTC tear for a total of 10 visit(s). Discharge Date: 08/18/23 Please see the following information for a summary of their discharge status. Subjective Subjective: Pt. repots having a 3/10 pre PT this date. Pt. reports having increased pain by the of day. Pt. to see physician this . Pt. reports feels stronger, but her pain is not changing much. Evenings are much worse, It feels like it wants to pull out of the socket. Pain L shoulder: Pain Intensity (Out of 10): 3 Overall Improvement % Improvement: 0 Objective Objective/Function: AROM: L shoulder: flexion 95deg increase NW, abd 90deg increase NW, functional ER C3 aberrant motion, functional IR L5 increase NW MMT: L shoulder: ER at side 7.5# increase NW, IR at middleware architect 11.9#, flexion 4.0# increase NW, abd 4.2# increase NW. Mid trap 8# NE, rhomboid 5#mild increase NW Pt. continues to have higher levels of pain with all OH movements. Active ROM limited to mid range secondary to pain. Sleeping: painful causing her to wake up. Pt. is slightly stronger throughout scapular musculature, but still limited with her L shoulder mobility and ADLs secondary to L shoulder pain. Goals Goal 1:: LTG: Pt. to be I with HEP for scapular and periscapular strengthening. Goal Progress: Goal Met Goal 2:: LTG: Pt. to have full R shoulder ROM with decreased aberrant motion with 0-2/10 pain. Goal Progress: Not Progressing Goal 3:: LTG: Pt. to have symmetrical strength between B shoulders allowing for increased tolerance to all recreational and gym activities. 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 Goal Progress: Not Progressing Plan Plan: At this point in time I want Paige to follow up with physician as therapy did not help her pain much. Pt. reports feeling stronger, but not much help with her pain. D/C Information Discharge Comments: Pt. was treated with strengthening and ROM exercises. She is still having increased pain with most activities especially anything over head. I would like her to follow up with physician at this point in time to determine best course of action. d/c sentence: If there are questions or concerns regarding this patient's physical therapy, please feel free to call me at [phone]. Thank you for the referral of this patient. Sincerely, Ron Keenan, DPT Balance/Gait/Functional tests Balance/Special Test Scores Quick DASH Score: 50.0000 Improvement % Improvement: 0
== END 2023-08-18 19:00 | disposition home or self-care (01) ==
LOC: PT 08:00
PROVIDERS: PCP Family Medicine
DX: M75.102 Unspecified rotator cuff tear or rupture of left shoulder, not specified as traumatic (principal); M19.012 Primary osteoarthritis, left shoulder; S46.212D Strain of muscle, fascia and tendon of other parts of biceps, left arm, subsequent encounter
CPT/HCPCS: 97035; 97110; 97161; 97530

== ENCOUNTER → 2023-08-24 | Outpatient (CLI) | payer MEDICARE, OTHER, SELFPAY | END | disposition home or self-care (01) | LOC: LABSPEC 15:08 | PROVIDERS: PCP Family Medicine; Referring Provider Nurse Practitioner Family; Visit Provider Nurse Practitioner Family | DX: N39.0 Urinary tract infection, site not specified (principal) | CPT/HCPCS: 87077; 87086; 87088; 87186 ==

== ENCOUNTER → 2023-08-26 | Outpatient (CLI) | payer MEDICARE, OTHER, SELFPAY ==
[2023-08-26 17:37] LABS: Absolute Lymphocyte Count 2.17 X10^3/uL (0.83-4.51); Absolute Neutrophil Count 4.6 X10^3/uL (2.0-7.7); Basophil# 0.09 X10^3/uL; Basophil% 1.1 % (0-1); Eosinophil# 0.81 X10^3/uL; Eosinophils% 9.7 % (0-5); Hematocrit 39.2 % (37-47); Hemoglobin 12.8 g/dL (12.0-15.0); Lymphocyte # 2.17 X10^3/ul (0.83-4.51); Lymphocyte % 26.1 % (19-41); Mean Corp Hgb Conc 32.7 g/dL (32-36); Mean Corpuscular Hgb 27.2 pg (27.0-32.0); Mean Corpuscular Volume 83.4 fL (81-99); Mean Platelet Vol. 10.5 fl (6.2-12.0); Monocyte# 0.63 X10^3/uL; Monocyte% 7.6 % (0-10); NRBC Flagged by Analyzer 0 % (0-5); Neutrophil % 55.1 % (47-70); Platelet Count 275 K/mm3 (150-450); RBC Distribution Width CV 13.1 % (11.6-14.6); RBC Distribution Width SD 39.4 fl (35.1-43.9); White Blood Count 8.3 K/mm3 (4.4-11.0)
[2023-08-26 18:02] LABS: ALB/GLOB Ratio 1.1 RATIO (0.9-2.4); AST(SGOT) 22 U/L (15-37); Alanine Aminotransfer ALT/SGPT 25 U/L (13-56); Albumin, Serum 3.9 g/dL (3.2-5.0); Alkaline Phosphatase 102 U/L (45-117); Anion Gap 9 (5-15); BUN 11 mg/dL (7-18); BUN/Creat Ratio 15.5 RATIO (10-20); Calcium,Total 9.4 mg/dL (8.5-10.1); Chloride 101 mmol/L (98-107); Creatinine, Serum 0.71 mg/dL (0.55-1.02); EST Glomerular Filtration Rate 88 mL/min (>60); Est Glom Filt Rate - Afr Amer 106 mL/min (>60); Globulin 3.5 g/dL (2.2-4.2); Glucose 155 mg/dL (74-106); Potassium 3.5 mmol/L (3.5-5.1); Protein, Total 7.4 g/dL (6.4-8.2); Sodium Level 136 mmol/L (136-145)
== END | disposition home or self-care (01) ==
PROVIDERS: PCP Family Medicine; Referring Provider Nurse Practitioner Family; Visit Provider Nurse Practitioner Family
DX: Z01.818 Encounter for other preprocedural examination (principal)
CPT/HCPCS: 36415; 80053; 85025

== ENCOUNTER → 2023-11-30 | Outpatient (CLI) | payer MEDICARE, OTHER, SELFPAY ==
[2023-11-30 12:14] LABS: Absolute Lymphocyte Count 1.72 X10^3/uL (0.83-4.51); Absolute Neutrophil Count 3.2 X10^3/uL (2.0-7.7); Basophil# 0.04 X10^3/uL; Basophil% 0.7 % (0-1); Eosinophil# 0.21 X10^3/uL; Eosinophils% 3.7 % (0-5); Hematocrit 40.3 % (37-47); Hemoglobin 12.7 g/dL (12.0-15.0); Lymphocyte # 1.72 X10^3/ul (0.83-4.51); Lymphocyte % 30.3 % (19-41); Mean Corp Hgb Conc 31.5 g/dL (32-36); Mean Corpuscular Hgb 27.1 pg (27.0-32.0); Mean Corpuscular Volume 86.1 fL (81-99); Mean Platelet Vol. 10.8 fl (6.2-12.0); Monocyte# 0.51 X10^3/uL; NRBC Flagged by Analyzer 0 % (0-5); Neutrophil # 3.18 X10^3/uL (2.7-7.7); Neutrophil % 56.1 % (47-70); Platelet Count 255 K/mm3 (150-450); RBC Distribution Width CV 13.7 % (11.6-14.6); RBC Distribution Width SD 42.7 fl (35.1-43.9); Red Blood Count 4.68 M/mm3 (4.2-5.4); White Blood Count 5.7 K/mm3 (4.4-11.0)
[2023-11-30 13:07] LABS: Cholesterol 223 mg/dL (200); High Density Lipoprotein 36 mg/dL; T4 Free Direct 0.91 ng/dL (0.76-1.46); Thyroid Stim Hormone (TSH) 0.618 uIU/mL (0.358-3.740); Triglycerides 331 mg/dL; Very Low Density Lipoprotein 66 mg/dL (5-40)
== END | disposition home or self-care (01) ==
LOC: BFHLAB 10:12
PROVIDERS: PCP Family Medicine; Referring Provider Family Medicine; Visit Provider Family Medicine
DX: D72.10 Eosinophilia, unspecified (principal); R73.01 Impaired fasting glucose; E03.9 Hypothyroidism, unspecified; E78.5 Hyperlipidemia, unspecified
CPT/HCPCS: 36415; 80061; 83036; 84439; 84443; 85025

== ENCOUNTER 2023-12-04 08:00 | Outpatient (RCR) | payer MEDICARE, OTHER, SELFPAY ==
--- NOTE | 2023-09-14 10:24 | HP.PTEVAL_ITS ---
Patient's Visit Information Visit Information Visit Information: PAIGE OLIVEROS is a 67 year old F referred to Physical Therapy by Dr. Jorgito Diaz MD with a diagnosis of L RTC and biceps tendodesis. Date of Evaluation: 09/11/23 Physical Therapist: Ron Keenan DPT Visit Plan Frequency: 2-3x /Week Duration: 6 Weeks Plan: Start with PROM, ice as needed. Progress per protocol/. Subjective Subjective: Pt. is here today for her initial evaluation with diagnosis of L RTC repair and biceps tenodesis. DOS: 09/02/23. Pt. reports overall not much pain. Pt. is wearing sling as prescribed. Pt. reports no N/T, sleeping well in reclining chair. Pt. is to follow up with physician in 10 days. Pt. has been doing pendulums at home with good tolerance. Pt. is hopeful to increase her ROM and strength in order to hold her grandchild later this year. Pt. reports overall doing well. Sutures still in place. Pain L shoulder: Pain Intensity (Out of 10): 2 Pain Intensity Range: 0 and 4 Objective Objective: POSTURE: Pt. has normal posture in stance, she does keep L shoulder in guarded posture at her side. PALPATION: Pt. has healing incisions, 3 port holes. No signs of infection. NEURO: normal sensation throughout. ROM: L shoulder: flexion 120deg, scaprion 120deg, ER at side 15deg. ER art side. MMT: DNT due to recent surgery. Balance/Special Test Scores Quick DASH Score: 61.3625 Goals Goal 1:: LTG: Pt. to be I with HEP. Goal Time Frame: 4-6 Weeks Goal 2:: LTG: Pt. to have increased L shoulder AROM symmetrical to R side without increase in symptoms. Goal Time Frame: 4-6 Weeks Goal 3:: LTG: pt. to have increased L shoulder strength symmetrical to R side without increase in symptoms. Goal Time Frame: 8-12 Weeks Goal 4:: STG: Pt. to sleep without increase ion L shoulder pain. Goal Time Frame: 2 Weeks Goal 5:: STG: Pt. to have increased PROM of L shoulder symmetrical to R shoulder without increase in symptoms. Goal Time Frame: 2-4 Weeks Rehabilitation Potential Physical Therapy Diagnosis: Pt. has signs and symptoms consistent with L RTC and biceps tendodesis. Pt. has marked loss of L shoulder ROM and strength. She would benefit from PT to address her ROM loss and strength. Rehabilitation Potential: Excellent Anticipated Interventions Patient/Client Instruction: Educate patient on: Condition, Plan of Care, Risk Factors and Benefits of Fitness Program For the Purpose of:: To facilitate caregiver knowledge, To improve self management, To prevent re-injury, To improve ability to perform tasks related to life management and To improve tolerance to ADL's Therapeutic Exercise to Include: Strength training, Power training, Endurance training, Postural training, Flexibilty training, Passive ROM, Active ROM and Scapular Strength/Stabilization For the Purpose of:: To decrease pain, To increase ROM, To improve nutrient delivery to tissue, To increase oxygenation perfusion, To improve muscle performance and motor function, To improve ability to perform ADL's, To increase tolerance to activity/condition/position and To improve performance and independence with ADL's Manual Therapy Techniques to Include: Passive ROM and Soft tissue mobilization For the Purpose of:: To decrease pain, To decrease swelling/inflammation, To increase ROM and To improve nutrient delivery to tissue Cryotherapy (ice pack, ice massage): Yes Thermo therapy (hot pack): Yes For the Purpose of:: To decrease pain, To decrease swelling/inflammation and To increase ROM Text: Thank you for the opportunity to evaluate your patient. For Medicare and Medicare HMO plans, please review the plan of care and approve it. It will need to be FAXED BACK to us at [phone] for Medicare purposes. For Medicare only, by signing this I certify the plan of care. Please let me know if there are questions or concerns regarding this plan of care. Physician Signature: ____Date:
--- NOTE | 2023-09-23 18:41 | HP.OTEVAL_ITS ---
Patient's Visit Information Visit Information Visit Information: PAIGE OLIVEROS is a 67 year old F, referred to Occupational Therapy by Dr. Jorgito Diaz MD, with a diagnosis of carpal tunnel. Date of Evaluation: 09/23/23 Occupational Therapist: Sonya Olsen Subjective Subjective: This 67 year old female referred to OT due to carpal tunnel release Mar 09. Pt states this is her second carpal tunnel release to the L hand. Pt reports numbness in palm. has had hx of L shoulder issues with rotator cuff tears recieves injections injected bicep tendon and shortly after partially ruptured bicep tendon requiring surgery. Pt reports she also had trigger finger of B thumbs surgical intervention to fix trigger finger of L thumb at same time that carpal tunnel release was complete. Pt is R hand dominant. pt is retired from [employer]. pt with difficulty opening a jar currently and notices weakness in LUE making functional tasks difficult. Objective Objective/Observation: pt arrives thickening of scar felt on R side of incision ROM Shoulder: NT Elbow: NT Wrist: L 50/45 R 50/50 MP: L 0/63 R 0/63 ROM Comments: pt healing from bicep tendon partial rupture shoulder and elbow NT this eval date L hand opposes to D5 to PIP level R hand opposes to D5 to MP level able to make composite fist Strength Manager [employer]: R 45# L 40# Lateral Pinch: R 5# L 5# Tripod Pinch: R 8# L4# Edema Other: no significant difference noted Sensation Sensation Comments: reports some numbness and tingling of in hand palm region occ tingling in forearm Quick DASH-Disab of Arm,Shoulder& Hand Quick DASH Score: 54.5450 Goals Goal:Daily scar massage when approriate: Yes Goal:ROM equal to unaffected hand: Yes Goal:Manager [employer]/Pinch strength at least 75% of unaffected hand: Yes Goal:No pain with affected hand use: Yes Goal:Full use of affected hand in daily activities including work: Yes Other Goal: pt will demonstrate improvement in quick dash score by 10 points or more (54.54) in order to return to functional use of LUE Pt will demonstrate 100% accuracy in completion of HEP by third session Pt will report decreased sensation of numbness/ tingling in palm during functional use to 0% of the day Rehabilitation General Assessment: This 67 year old female arrives s/p completion of L carpal tunnel release for second time complete Feb. pt reports she did receive x1 PT eval no further session for management of release. Pt reports numbness and tingling in L palm and reports feeling weaking in L hand. pt does demonstrate decreased L hand opposition compare to R side. weakness of tripod pinch compare to R side. pt would benefit from OT services 1-2x a week for 4-6 weeks. Rehabilitation Potential: Good Anticipated Interventions Anticipated Interventions: A/AAROM/PROM, Strengthening, Scar Care, Triggerpoint Release, Modalities, Joint Protection/Energy Conservation, Education re Diagnosis, Education re Self Massage Techniques and Home Program Visit Plan Frequency: 1-2x /Week Duration: 4-6 Weeks General Plan: scar mobilization modalities AROM/AAROM/PROM tendon glide median nerve glide sterch and strengthen TEXT: Thank you for the opportunity to evaluate your patient. For Medicare and Medicare HMO plans, please review the plan of care and approve it. It will need to be FAXED BACK to us at [phone] for Medicare purposes. Please let me know if there are questions or concerns regarding this plan of care. Physician Signature: Date:
--- NOTE | 2023-10-09 14:33 | HP.PTREVAL ---
Re-Evaluation Intro: Dr. Jorgito Diaz MD, It has been my pleasure to treat PAIGE OLIVEROS over the last 11 visits for L RTC and biceps tendodesis (09/02/23).. Please see the progress note below for an update on the physical therapy plan of care! Subjective Subjective: Pt. reports overall doing well. She is progressing as expected. Pt. to see physician next week. Objective Objective/Function: PROM: L shoulder: flexion 170deg, abd 170deg, ER at 30deg of abd 70deg. AAROM with stick flexion 170deg. Pt. is overall doing well. Her ROM with both passive and AAROM is progressing well. Okay start next phase with AAROM both with flexion and ER motions. Follow protocol. Plan Plan Plan: COnt. to progress with protocol. Pt. to see physician next week. Balance/Gait/Functional tests Balance/Special Test Scores Quick DASH Score: 45.4525 Goals Goals Goal 1:: LTG: Pt. to be I with HEP. Goal Time Frame: 4-6 Weeks Goal Progress: Progressing Goal 2:: LTG: Pt. to have increased L shoulder AROM symmetrical to R side without increase in symptoms. Goal Time Frame: 4-6 Weeks Goal Progress: Progressing Goal 3:: LTG: pt. to have increased L shoulder strength symmetrical to R side without increase in symptoms. Goal Time Frame: 8-12 Weeks Goal Progress: Progressing Goal 4:: STG: Pt. to sleep without increase ion L shoulder pain. Goal Time Frame: 2 Weeks Goal Progress: Progressing Goal 5:: STG: Pt. to have increased PROM of L shoulder symmetrical to R shoulder without increase in symptoms. Goal Time Frame: 2-4 Weeks Goal Progress: Progressing Anticipated Interventions Anticipated Interventions Patient/Client Instruction: Educate patient on: Condition, Plan of Care, Risk Factors and Benefits of Fitness Program For the Purpose of:: To facilitate caregiver knowledge, To improve self management, To prevent re-injury, To improve ability to perform tasks related to life management and To improve tolerance to ADL's Therapeutic Exercise to Include: Strength training, Power training, Endurance training, Postural training, Flexibilty training, Passive ROM, Active ROM and Scapular Strength/Stabilization For the Purpose of:: To decrease pain, To increase ROM, To improve nutrient delivery to tissue, To increase oxygenation perfusion, To improve muscle performance and motor function, To improve ability to perform ADL's, To increase tolerance to activity/condition/position and To improve performance and independence with ADL's Manual Therapy Techniques to Include: Passive ROM and Soft tissue mobilization For the Purpose of:: To decrease pain, To decrease swelling/inflammation, To increase ROM and To improve nutrient delivery to tissue Cryotherapy (ice pack, ice massage): Yes Thermo therapy (hot pack): Yes For the Purpose of:: To decrease pain, To decrease swelling/inflammation and To increase ROM Re-Evaluation Ending Re-evaluation ending: Please do not hesitate to contact me at [phone] by phone or if you have questions or concerns regarding this new plan of care! Sincerely, ELOY HernandezT
--- NOTE | 2023-10-23 10:49 | HP.OTDCSUM_ITS ---
Discharge Summary D/C Summary: It has been my pleasure to treat PAIGE OLIVEROS under orders from Dr. Jorgito Diaz MD, for the diagnosis of carpal tunnel for a total of 6 visit(s). Please see the following information for a summary of their discharge status. 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 Goals Patient Goals: Regain Strength, Decrease Pain, Use Hand/Wrist/Arm Normally Again, Decrease Tingling/Numbness, Increase ROM, Resume Former Household Responsibilities (Cooking,Cleaning,Yard, etc.) and Resume Hobbies Goal:Daily scar massage when approriate: Yes Goal:ROM equal to unaffected hand: Yes Goal:Footwear Machinery Instructor/Pinch strength at least 75% of unaffected hand: Yes Goal:No pain with affected hand use: Yes Goal:Full use of affected hand in daily activities including work: Yes Other Goal: pt will demonstrate improvement in quick dash score by 10 points or more (54.54) in order to return to functional use of LUE (goal met) Pt will demonstrate 100% accuracy in completion of HEP by third session (goal met) Pt will report decreased sensation of numbness/ tingling in palm during functi onal use to 0% of the day (progressing) Plan Plan: pt to be discharged at this time D/C Information Discharge Comments: pt ready to be discharged at this time. pt has made gains and tolerated therapy well. pt to continue HEP and agrees to POC. d/c sentence: If there are questions or concerns regarding this patient's occupational therapy, please fell free to call me at [phone]. Thank you for the referral of this patient. Sincerely, Harper Shields, OTR/L, CHT
--- NOTE | 2023-12-04 08:48 | HP.PTDCSUM ---
Discharge Summary D/C summary: It has been my pleasure to treat PAIGE OLIVEROS referred by Dr. Jorgito Diaz MD, with the diagnosis of L RTC and biceps tendodesis (09/02/23). for a total of 25 visit(s). Discharge Date: 12/04/23 Please see the following information for a summary of their discharge status. Subjective Subjective: Pt. reports overall doing well. Pt. reports being 95% better overall. No pain currently. Pain L shoulder: Pain Intensity (Out of 10): 0 Overall Improvement % Improvement: 95 Objective Objective/Function: MMT: RUE: ER 15.9#, IR 15.0#, plnfihp94.7#, abd 20.# LUE: ER 10.9#, IR 14.7#, flexion 12.1#m, abd 13.8# No issues with sleeping Pt. has close to full ROM, except functional IR to L4 Overall she is doing well, but should work on continued strengthening. He has a good program and has good understanding . Goals Goal 1:: LTG: Pt. to be I with HEP. Goal Progress: Goal Met Goal 2:: LTG: Pt. to have increased L shoulder AROM symmetrical to R side without increase in symptoms. Goal Progress: Goal Met Goal 3:: LTG: pt. to have increased L shoulder strength symmetrical to R side without increase in symptoms. Goal Progress: Progressing Goal 4:: STG: Pt. to sleep without increase ion L shoulder pain. Goal Progress: Goal Met Goal 5:: STG: Pt. to have increased PROM of L shoulder symmetrical to R shoulder without increase in symptoms. Goal Progress: Goal Met Plan Plan: Pt. to be DC from PT at this point in time. D/C Information d/c sentence: If there are questions or concerns regarding this patient's physical therapy, please feel free to call me at [phone]. Thank you for the referral of this patient. Sincerely, Ron Uribe Sipos, DPT Balance/Gait/Functional tests Balance/Special Test Scores Quick DASH Score: 12.5000 Improvement % Improvement: 95
== END 2023-12-04 19:00 | disposition home or self-care (01) ==
LOC: PT 08:00
PROVIDERS: PCP Family Medicine; Visit Provider Orthopaedic Surgery
DX: G56.02 Carpal tunnel syndrome, left upper limb (principal); M75.102 Unspecified rotator cuff tear or rupture of left shoulder, not specified as traumatic; Z98.890 Other specified postprocedural states
CPT/HCPCS: 97035; 97110; 97140; 97161; 97165; 97530

== ENCOUNTER → 2024-02-23 | Outpatient (CLI) | payer MEDICARE, OTHER, SELFPAY ==
--- NOTE | 2024-02-23 11:10 | MRI_ITS ---
EXAM: MR CERVICAL SPINE WITHOUT INTRAVENOUS CONTRAST CLINICAL INDICATION: bilateral hand weakness and paresthesias; neck pain, balance issues TECHNIQUE: Multiplanar and multisequence MR images of the cervical spine without intravenous contrast were performed. COMPARISON: MR Cervical Spine dated 04/02/2022 FINDINGS: VERTEBRAE: Loss of the normal cervical lordosis which may be due to muscle spasm or head positioning. Normal vertebral body height. No bone marrow edema. Stable small C7 vertebral body hemangioma. SPINAL CORD: Unremarkable in signal and morphology. SOFT TISSUES: Normal. No prevertebral soft tissue swelling. LYMPH NODES: Normal. There is no cervical adenopathy. DISCS/SPINAL CANAL/NEURAL FORAMINA: C2-C3: Normal disc height and morphology. Normal spinal canal. Normal neuroforamina. C3-C4: Normal disc height and morphology. Normal spinal canal. Normal neuroforamina. C4-C5: C4-5: Prominent uncinate joint hypertrophy and facet arthropathy results in left neural foraminal narrowing. C5-C6: C5-6: Mild disc space narrowing. No disc protrusion. Mild posterior ligamentous redundancy causes minimal impression on the thecal sac. No significant spinal stenosis. Prominent bilateral neural foraminal narrowing related to uncinate joint hypertrophy. C6-C7: C6-7: Moderate disc space narrowing. No disc protrusion. Prominent bilateral neural foraminal narrowing related to uncinate joint hypertrophy. C7-T1: No significant disc space narrowing. Mild central disc protrusion associated with annular fissure and causes mild compression of the thecal sac. No significant spinal or neural foraminal stenosis. MRI/Spine Cervical (Routine) IMPRESSION: Multilevel neural foraminal narrowing related to uncinate joint hypertrophy. No significant spinal stenosis. Electronically Signed: Cory Canales MD at 9:20 EST ,
== END | disposition home or self-care (01) ==
LOC: MRI 10:55
PROVIDERS: PCP Family Medicine; Referring Provider Psychiatry & Neurology Neurology; Visit Provider Psychiatry & Neurology Neurology
DX: M54.2 Cervicalgia (principal); R20.2 Paresthesia of skin
CPT/HCPCS: 72141

== ENCOUNTER 2024-04-13 15:03 | Outpatient (RCR) | payer SELFPAY | END 2024-04-22 23:59 | LOC: NS 15:03 | PROVIDERS: PCP Family Medicine; Referring Provider Family Medicine; Visit Provider Family Medicine | DX: Z71.3 Dietary counseling and surveillance (principal); E66.9 Obesity, unspecified; Z68.35 Body mass index [BMI] 35.0-35.9, adult | CPT/HCPCS: 97802 ==

== ENCOUNTER → 2024-04-29 | Outpatient (CLI) | payer MEDICARE, OTHER, SELFPAY ==
[2024-04-29 12:39] LABS: Thyroid Stim Hormone (TSH) 0.668 uIU/mL (0.300-4.200)
[2024-04-30 08:44] LABS: Anion Gap 15 (5-15); BUN 12 mg/dL (4-19); BUN/Creat Ratio 15.6 RATIO (10-20); Calcium,Total 9.7 mg/dL (7.6-11.0); Carbon Dioxide 24.4 mmol/L (21.0-32.0); Chloride 100 mmol/L (98-108); Creatinine, Serum 0.74 mg/dL (0.70-1.20); EST Glomerular Filtration Rate 89 (>60); Glucose 89 mg/dL (70-99); Magnesium 2.3 mg/dL (1.5-2.2); Potassium 4.2 mmol/L (3.3-5.1); Sodium Level 139 mmol/L (133-145)
== END | disposition home or self-care (01) ==
LOC: MTLAB 08:51
PROVIDERS: PCP Family Medicine; Referring Provider Family Medicine; Visit Provider Family Medicine
DX: E03.9 Hypothyroidism, unspecified (principal); R00.2 Palpitations
CPT/HCPCS: 36415; 80048; 83735; 84439; 84443

== ENCOUNTER → 2024-05-03 | Outpatient (CLI) | payer MEDICARE, OTHER, SELFPAY | END | disposition home or self-care (01) | LOC: PSN 09:55 | PROVIDERS: PCP Family Medicine; Referring Provider Family Medicine; Visit Provider Family Medicine | DX: R00.2 Palpitations (principal) | CPT/HCPCS: 93225; 93226 ==

== ENCOUNTER → 2024-05-05 | Outpatient (CLI) | payer MEDICARE, OTHER, SELFPAY ==
--- NOTE | 2024-05-05 12:42 | BI_ITS ---
PROCEDURE: SCRN MAMM (CAD)W/LIZ BILAT REASON FOR EXAM: F, Age 68 y/o , SCREENING. Grandmother with breast cancer. TECHNIQUE: Bilateral screening digital breast tomosynthesis with 2D and 3D images. Computer aided detection. COMPARISON: Prior exam(s) dating back to March 19, 2022.. FINDINGS: There are scattered areas of fibroglandular density. Small bilateral axillary lymph nodes. Stable examination. No suspicious masses, areas of developing architectural distortion, or suspicious calcifications. BI/SCRN MAMM (CAD)W/LIZ BILAT IMPRESSION: BI-RADS 2: BENIGN. RECOMMEND ANNUAL MAMMOGRAPHIC SCREENING. Follow-up code: Routine Follow-up The patient will be notified of the results by letter. Reading Location: [id number]
== END | disposition home or self-care (01) ==
LOC: OPBI 12:39
PROVIDERS: PCP Family Medicine; Referring Provider Family Medicine; Visit Provider Family Medicine
DX: Z12.31 Encounter for screening mammogram for malignant neoplasm of breast (principal); Z80.3 Family history of malignant neoplasm of breast
CPT/HCPCS: 77063; 77067

== ENCOUNTER 2024-05-23 12:53 | Outpatient (RCR) | payer SELFPAY | END 2024-05-23 23:59 | LOC: NS 12:53 | PROVIDERS: PCP Family Medicine; Referring Provider Family Medicine; Visit Provider Family Medicine | DX: Z71.3 Dietary counseling and surveillance (principal); E66.9 Obesity, unspecified; M13.0 Polyarthritis, unspecified; Z68.35 Body mass index [BMI] 35.0-35.9, adult | CPT/HCPCS: 97803 ==

== ENCOUNTER 2024-07-22 09:20 | Outpatient (RCR) | payer MEDICARE, OTHER, SELFPAY ==
--- NOTE | 2024-07-22 11:39 | HP.OTEVAL ---
Patient's Visit Information Visit Information Visit Information: PAIGE OLIVEROS is a 68 year old F, referred to Occupational Therapy by SILVINO Greer, with a diagnosis of S66.391A extensor tendon injury/left IF pain. Date of Evaluation: 07/22/24 Occupational Therapist: Harper Shields, ROMINA/Jojo, CHT Subjective Subjective: This 68 year old female was seen for OT eval with dx of injury of extensor tendon of left IF , pain of left IF. Pt states on 07/14/24 she was twisting a container and felt a pop in her IF. or heard a ripping sound. pt states she did have bruising the next day. pt arrives states she was splinting her finger, using compression glove and started to squeeze a resistive ball but this was painful. pt would like to know what she can do to decrease her pain improve her ROM to return to her PLOF. Pain left hand: Current Pain Intensity: 3 Pain Intensity Range: 4 ROM MP: left IF 50* Strength Strength Comments: will test later date Sensation Sensation Comments: denies Quick DASH-Disab of Arm,Shoulder& Hand Quick DASH Score: 27.5000 Goals Goal:: pt will demo the a oracle manufacturing consultant strength of 30# or greater to return pt to her PLOF. Goal:: pt will demo full left IF ROM at MP, PIP, DIP and IF Abduction without pain to return pt to her PLOF. Goal:: pt will report no pain greater than 1/10 with use of left hand with ADLs by d.c Goal:: Pt will demo understanding of joint protection and ergonomics when performing BADLs and IADLs by d/c Pt will demo understanding of adaptive Equipment use to decrease stress on joints to allow pt to perform BADSL and IADLS at MAGALI level. Rehabilitation General Assessment: pt arrives 1 week and 2 days from her DOI. pt continues to report pain and demo with limited ROM and weakness as any resistive oracle manufacturing consultant causes pain. pt demo need for skilled OT services 3-6 visits to ensure pt regains her functional ROM and strength to return to using left hand at her PLOF. Today therapist ed. pt on using jayme straps to support IF from abduction but cont to allow light digit flexion. pt demo understanding and agree to POC. Rehabilitation Potential: Good Anticipated Interventions Anticipated Interventions: A/AAROM/PROM, Triggerpoint Release, Orthoses, Joint Protection/Energy Conservation, Ergonomic Education, Education re Diagnosis and Home Program Visit Plan General Plan: isolate pt from left IF Abduction, pt to jayme tape to Left MF pt to use for 4-6 weeks allowed to flex and extend DIP and PIP will work on MP ROM transition to light strength at 6 weeks as tolerated. TEXT: Thank you for the opportunity to evaluate your patient. For Medicare and Medicare HMO plans, please review the plan of care and approve it. It will need to be FAXED BACK to us at [phone] for Medicare purposes. Please let me know if there are questions or concerns regarding this plan of care. Physician Signature: Date:
--- NOTE | 2024-10-27 09:55 | HP.OT.NRP ---
Patient Information Patient Information: PAIGE OLIVEROS was seen in my office for initial evaluation on 07/22/24. The following Plan of Care was established for this patient: Anticipated Interventions Anticipated Interventions: A/AAROM/PROM, Triggerpoint Release, Orthoses, Joint Protection/Energy Conservation, Ergonomic Education, Education re Diagnosis and Home Program Last Seen Last Seen: This patient was last seen in our office 07/22/24. Pertinent comments regarding their Occupational therapy will appear below: No further apts have been scheduled. Due to time lapse in service pt is d/c. At this point I will be discontinuing this patient from occupational therapy. I would be happy to see this patient again in the future if found appropriate by the physician. Thank you! Harper Shields, OTR/L, CHT
== END 2024-07-22 19:00 | disposition home or self-care (01) ==
LOC: OT 09:20
PROVIDERS: PCP Family Medicine
DX: S66.39 Other injury of extensor muscle, fascia and tendon of other and unspecified finger at wrist and hand level (principal); M79.645 Pain in left finger(s)
CPT/HCPCS: 97166

== ENCOUNTER → 2024-11-10 | Outpatient (CLI) | payer MEDICARE, OTHER, SELFPAY ==
--- NOTE | 2024-11-10 07:00 | MRI_ITS ---
PROCEDURE: MRI BRAIN W/WO CONTRAST 11/10/2024 REASON FOR EXAM: HEADACHES, DIZZINESS TECHNIQUE: Procedure Code: [id number] Modality: MR Procedure: BRAIN W/WO CONTRAST Multiplanar and multisequential MRI of the brain was performed without and with IV gadolinium based contrast administration. CONTRAST: Clariscan VOLUME: 14 mL COMPARISON: None available. FINDINGS: Ventricular and sulcal size and configuration are within normal limits. No intracranial mass lesion or pathologic enhancement. No evidence of intracranial hemorrhage, extra-axial collection, or other significant abnormality. No regions of abnormal restricted diffusion or susceptibility. Few scattered small foci of T2 FLAIR hyperintensity in the supratentorial white matter, which are nonspecific but most likely reflect minimal leukoaraiosis. Preserved major vascular flow voids. Grossly unremarkable orbits. Well-aerated paranasal sinuses and bilateral mastoid air cells. MRI/Brain W/WO Contrast IMPRESSION: No acute intracranial abnormality. No specific cause for patient's symptoms. 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 These are also commonly seen with migraine headaches. Reading Location: [facility]
--- OUTSIDE RECORDS SUMMARY | 2024-11-10 07:10 | XMS RPT_ITS | CCD ---
Author Organization [facility] Care Team Providers Care Salary Manager Name Role Phone Unavailable Primary Care Provider Dr. Chauncey Patrick Primary Care Provider [phone] Dr. Chauncey Anderson Referring Provider [phone] Dr. Jules Payne Attending Provider [phone] Jules Payne Referring Provider [phone] Jules Payne Other Provider Dr. Kit Fay Attending Provider Dr. Chauncey Anderson Primary Care Provider [phone] Jules Payne Referring Provider Dr. Jules Payne Other Provider Dr. Leo Pantoja Attending Provider Dr. Jules Payne Attending Provider [phone] Chauncey Anderson Primary Care Provider [phone] Jules Payne Attending Provider Dr. Jules Payne Referring Provider Dr. Chauncey Anderson Referring Provider Dr. Chauncey Anderson DO Primary Care Provider Dr. Jules Payne MD Attending Provider Dr. Jules Payne MD Referring Provider Dr. Chauncey Anderson DO Referring Provider [phone] Chauncey Anderson DO Attending Provider [phone] Tyron LERNER, Dr. Starkey Attending Provider Monica HSU, Dr. Grossman Primary Care Provider [phone] Monica HSU, Dr. Grossman Attending Provider [phone] Monica HSU, Dr. Grossman Referring Provider Oralia Beard Attending Provider [phone] Oralia Beard Referring Provider Kerry LERNER, Dr. Vicente Attending Provider [phone] Chauncey Anderson Attending Unavailable Monica, Chauncey Referring Unavailable Monica, Chauncey Primary Care Unavailable MonicaChauncey Attending Unavailable Monica, Chauncey Referring Unavailable Monica, Chauncey Primary Care Unavailable Monica, Chauncey Primary Care Unavailable Oralia Jones Referring Unavailable Oralia Jones Attending Unavailable MonicaChauncey Attending Unavailable Monica, Chauncey Referring Unavailable Monica, Chauncey Primary Care Unavailable Monica, Chauncey Primary Care Unavailable Jaky Ackerman Attending Unavailabl e MonicaChauncey patel Referring Unavailable Monica, Chauncey Referring Unavailable BaddoJules macdonald Attending Unavailable Monica, Chauncey Primary Care Unavailable Monica, Chauncey Primary Care Unavailable Monica, Chauncey Referring Unavailable BaddoJules macdonald Attending Unavailable Monica, Chauncey Primary Care Unavailable Monica, Chauncey Referring Unavailable BadJules watson Attending Unavailable MonicaChauncey Attending Unavailable Monica, Chauncey Referring Unavailable Monica, Chauncey Primary Care Unavailable Monica, Chauncey Attending Unavailable Monica, Chauncey Primary Care Unavailable Monica, Chauncey Referring Unavailable Monica, Chauncey Primary Care Unavailable Jorgito Diaz Attending Unavailable Monica, Chauncey Attending Unavailable Monica, Chauncey Primary Care Unavailable Monica, Chauncey Referring Unavailable Monica, Chauncey Primary Care Unavailable Jules Payne Attending Unavailable HarshaldoJules macdonald Referring Unavailable Monica, Chauncey Referring Unavailable Monica, Chauncey Attending Unavailable Monica, Chauncey Primary Care Unavailable Monica, Chauncey Referring Unavailable Monica, Chauncey Attending Unavailable Monica, Chauncey Primary Care Unavailable Medications Current Medications Medication Drug Class(es) Dates Sig (Normalized) Sig (Original) acetaminophen 500 mg oral tablet (9 sources) Start: 10-13-2022 take 2 tablets by mouth every eight hours as needed Acetaminophen (Tylenol Extra Strength) 500 mg tablet Active 1000 mg PO Q8H as needed October 13, 2022 12:00am baclofen 10 mg oral tablet (20 sources) gamma-Aminobutyr ic Acid-ergic Agonist Start: 03-03-2024 take 1 tablet by mouth twice daily as needed for pain Baclofen 10 mg tablet Active 10 mg PO TWICE A DAY as needed for muscle spasm/muscle pain 180 1 March 03, 2024 9:58am Start: 02-17-2023 End: 03-03-2024 take 5 mg by mouth three times daily as needed for pain Baclofen 10 mg tablet Discontinued 5 mg PO THREE TIMES A DAY as needed for muscle spasm/muscle pain 135 1 June 22, 2023 8:36am March 03, 2024 10:02am Start: 02-17-2023 End: 06-22-2023 take 5 mg by mouth three times daily Baclofen Active 5 MG PO THREE TIMES A DAY 135 June 22, 2023 8:36am Start: 10-13-2022 End: 02-17-2023 take 1 tablet by mouth three times daily as needed for pain Baclofen 10 mg tablet Discontinued 10 mg PO THREE TIMES A DAY as needed for muscle spasm/muscle pain 90 5 October 13, 2022 12:00am February 17, 2023 9:05am celecoxib 100 mg oral capsule (20 sources) Nonsteroidal Anti-inflammatory Drug Start: 03-03-2024 End: 03-03-2024 take 1 capsule by mouth once daily as needed for pain Celecoxib 100 mg capsule Active 100 mg PO daily as needed for pain 90 1 March 03, 2024 9:59am Start: 12-18-2015 End: 03-03-2024 take 1 capsule by mouth once daily Celecoxib 200 MG capsule Discontinued 200 mg PO DAILY December 18, 2015 12:00am March 03, 2024 9:54am cholecalciferol 0.025 mg oral tablet (13 sources) Vitamin D Start: 12-18-2015 take 1 tablet by mouth once daily Cholecalciferol (Vitamin D3) 1,000 UNIT tablet Active 1000 U PO DAILY December 18, 2015 12:00am clobetasol propionate 0.5 mg/ml topical solution (9 sources) Corticosteroid Start: 10-13-2022 Clobetasol 0.05 % solution Active 1 NMA TOPICAL DAILY October 13, 2022 12:00am apply as directed DIM-PLUS (4 sources) Start: 10-13-2022 DIM-PLUS Active PO DAILY October 12, 2022 11:00pm Start: 10-13-2022 DIM-PLUS Activ e PO DAILY October 13, 2022 12:00am DIM-PLUS tablet (5 sources) Start: 10-13-2022 DIM-PLUS table t Active PO DAILY October 13, 2022 12:00am DULoxetine 60 mg delayed release oral capsule (15 sources) Serotonin and Norepinephrine Reuptake Inhibitor Start: 12-21-2023 End: 03-03-2024 take 1 capsule by mouth once daily Duloxetine 60 mg capsule,delayed release(DR/EC) Active 60 mg PO DAILY 90 1 March 03, 2024 9:59am Start: 12-21-2023 End: 03-03-2024 take 1 capsule by mouth once daily Duloxetine 30 mg capsule,delayed release(DR/EC) Discontinued 30 mg PO DAILY 7 0 December 21, 2023 12:00am March 03, 2024 9:54am krill oil (9 sources) Start: 10-13-2022 Mrsrq-Pz-7-Dha -Dgo-Zxxooib-Cks (Krill Oil) 552-763-69-75 mg capsule Active 1 NMA PO DAILY October 13, 2022 12:00am Start: 10-13-2022 take 1 capsule by mouth once daily Ienwa-Ep-2-Iur-Ndl-Jdwacgg-Ast (Krill Oi l) [id number] mg capsule Active 1 CAP PO DAILY October 12, 2022 11:00pm Start: 10-13-2022 take 1 capsule by mouth once daily Ittks-Lj-3-Mwv-Fsl-Lydvclw-Ast (Krill Oi l) [phone] mg capsule Active 1 CAP PO DAILY October 13, 2022 12:00am Lactobacillus Combination No .4 (Senior Probiotic) 15 billion cell capsule (9 sources) Start: 10-13-2022 Lactobacillus Combination No.4 (Senior Probiotic) 15 billion cell capsule Active 11642 NMA PO DAILY October 13, 2022 12:00am administer with a meal 16 strain probiotic i cap daily Start: 10-13-2022 Lactobacillus Combination No.4 (Senior Probiotic) 15 billion cell capsule Active 70108 MMU CELLS PO DAILY October 12, 2022 11:00pm administer with a meal 16 strain probiotic i cap daily Start: 10-13-2022 Lactobacillus Combination No.4 (Senior Probiotic) 15 billion cell capsule Active 15512 MMU CELLS PO DAILY October 13, 2022 12:00am administer with a meal 16 strain probiotic i cap daily loratadine 10 mg oral tablet (13 sources) Start: 12-18-2015 take 1 tablet by mouth once daily Loratadine 10 MG tablet Active 10 mg PO DAILY December 18, 2015 12:00am Multivitamin (Multiple Vitamins) tablet (9 sources) Start: 10-13-2022 Multivitamin ( Multiple Vitamins) tablet Active 1 {tbl} PO every other day October 13, 2022 12:00am take every other day Start: 10-13-2022 take 1 tablet by corbin th every other day Multivitamin (Multiple Vitamins) tablet Active 1 TABLET PO every other day October 12, 2022 11:00pm take every other day Start: 10-13-2022 take 1 tablet by corbin th every other day Multivitamin (Multiple Vitamins) tablet Active 1 TABLET PO every other day October 13, 2022 12:00am take every other day pregabalin 50 mg oral capsule (9 sources) Start: 10-13-2022 take 1 capsule by mouth three times daily Pregabalin (Lyrica) 50 mg capsule Active 50 mg PO THREE TIMES A DAY October 13, 2022 12:00am red yeast rice 600 mg oral capsule (9 sources) Start: 10-13-2022 take 1 capsule by mouth once daily Red Yeast Rice 600 mg capsule Active 1200 mg PO DAILY October 13, 2022 12:00am give with meal/snack Start: 10-13-2022 take 1200 mg by mout h once daily Red Yeast Rice Active 1200 MG PO DAILY October 13, 2022 12:00am give with meal/snack resveratroll-Quercetin (4 sources) Start: 10-13-2022 take 1 tablet by mouth once daily resveratroll-Quercetin Active PO DAILY October 12, 2022 11:00pm take one tablet once daily Start: 10-13-2022 take 1 tablet by corbin th once daily resveratroll-Quercetin Active PO DAILY October 13, 2022 12:00am take one tablet once daily resveratroll-Quercetin tablet (5 sources) Start: 10-13-2022 take 1 tablet by mouth once daily resveratroll-Quercetin tablet Active PO DAILY October 13, 2022 12:00am take one tablet once daily Thyroid (Pork) (Voucher Examiner Thyroid) 30 mg tablet (7 sources) Start: 02-17-2023 take 1 tablet by mouth once daily Thyroid (Pork) (Voucher Examiner Thyroid) 30 mg tablet Active 30 mg PO DAILY February 17, 2023 1:00am Start: 02-17-2023 take 1 tablet by mouth once da gabriel Thyroid (Pork) (Voucher Examiner Thyroid) 30 mg tablet Active 30 MG PO DAILY February 17, 2023 1:00am Start: 02-17-2023 take 1 tablet by mouth once da gabriel Thyroid (Pork) (Voucher Examiner Thyroid) 30 mg tablet Active 30 MG PO DAILY February 17, 2023 12:00am Vitamin B Complex-Folic Acid (8 sources) Start: 12-18-2015 take 0.4 mg by mouth once daily Vitamin B Complex-Folic Acid Active 0.4 MG PO DAILY December 18, 2015 12:00am Start: 12-18-2015 take 0.4 mg by mouth once daily Vitamin B Complex-Folic Acid Active 0.4 MG PO DAILY December 17, 2015 11:00pm Vitamin B Complex-Folic Acid 0.4 MG tablet (5 sources) Start: 12-18-2015 take 1 tablet by mouth once daily Vitamin B Complex-Folic Acid 0.4 MG tablet Active 0.4 mg PO DAILY December 18, 2015 12:00am Completed/Discontinued Medications Medication Drug Class(es) Dates Sig (Normalized) Sig (Original) acetaminophen 325 mg / oxyCODONE hydrochloride 5 mg oral tablet (13 sources) Opioid Agonist Start: 01-09-2016 End: 02-29-2020 Oxycodone-Acetamino phen 1 TABLET tablet Discontinued 1 - 2 {tbl} PO EVERY 6 HOURS NEEDED as needed for Pain January 09, 2016 1:00am February 29, 2020 4:42pm Start: 01-09-2016 End: 02-29-2020 take 1 tablet by mouth every six hours as needed Oxycodone-Acetaminophen Discontinued 1 - 2 TABLET PO EVERY 6 HOURS NEEDED January 09, 2016 1:00am February 29, 2020 4:42pm aspirin 325 mg oral tablet (13 sources) Platelet Aggregation Inhibitor, Nonsteroidal Anti-inflammatory Drug Start: 01-09-2016 End: 10-13-2022 take 1 tablet by mouth twice daily at mealtime Aspirin 325 MG tablet Discontinued 325 mg PO TWICE DAILY WITH MEALS 60 0 January 09, 2016 1:00am October 13, 2022 9:20am Garlic (13 sources) Non-Standardized Food Allergenic Extract Start: 12-18-2015 End: 10-13-2022 take 1 capsule by mouth once daily Garlic 1,000 MG capsule Discontinued 1000 mg PO DAILY December 18, 2015 12:00am October 13, 2022 10:40am Start: 12-18-2015 End: 10-13-2022 take 1000 mg by mouth once daily Garlic Discontinued 1000 MG PO DAILY December 17, 2015 11:00pm October 13, 2022 9:40am Start: 12-18-2015 End: 10-13-2022 take 1000 mg by mouth once daily Garlic Discontinued 1000 MG PO DAILY December 18, 2015 12:00am October 13, 2022 10:40am Start: 12-18-2015 take 1000 mg by mout h once daily Garlic Active 1000 MG PO DAILY December 18, 2015 12:00am Start: 12-18-2015 take 1000 mg by mout h once daily Garlic Active 1000 MG PO DAILY December 17, 2015 11:00pm Magnesium Aspart,Citrate,Oxide 400 MG capsule (5 sources) Start: 12-18-2015 End: 10-13-2022 take 1 capsule by mouth once daily Magnesium Aspart,Citrate,Oxide 400 MG capsule Discontinued 400 mg PO DAILY December 18, 2015 12:00am October 13, 2022 9:20am Magnesium Oxide,Aspartate,Citr (8 sources) Start: 12-18-2015 End: 10-13-2022 take 400 mg by mouth once daily Magnesium Oxide,Aspartate,Citr Discontinued 400 MG PO DAILY December 17, 2015 11:00pm October 13, 2022 8:20am Start: 12-18-2015 End: 10-13-2022 take 400 mg by mouth once daily Magnesium Oxide,Aspartate,Citr Discontinued 400 MG PO DAILY December 18, 2015 12:00am October 13, 2022 9:20am Start: 12-18-2015 take 400 mg by mouth once daily Magnesium Oxide,Aspartate,Citr Active 40 0 MG PO DAILY December 18, 2015 12:00am Start: 12-18-2015 take 400 mg by mouth once daily Magnesium Oxide,Aspartate,Citr Active 40 0 MG PO DAILY December 17, 2015 11:00pm naproxen 500 mg oral tablet (13 sources) Nonsteroidal Anti-inflammatory Drug Start: 12-18-2015 End: 10-13-2022 take 1 tablet by mouth twice daily as needed for pain Naproxen 500 MG tablet Discontinued 500 mg PO TWICE DAILY NEEDED as needed for Pain December 18, 2015 12:00am October 13, 2022 9:20am nitrofurantoin, macrocrystals 25 mg / nitrofurantoin, monohydrate 75 mg oral capsule (5 sources) Nitrofuran Antibacterial Start: 08-22-2023 End: 08-27-2023 take 1 capsule by mouth every twelve hours at mealtime Nitrofurantoin Monohyd/M-Cryst (Macrobid) 100 mg capsule Discontinued 100 mg PO Q12H 10 5 0 August 22, 2023 12:00am August 26, 2023 12:00am August 27, 2023 12:05am must administer with a meal/food plant stanol mervin 450 mg oral capsule (13 sources) Start: 12-18-2015 End: 10-13-2022 take 1 capsule by mouth once daily Plant Stanol Mervin 450 MG capsule Discontinued 450 mg PO DAILY December 18, 2015 12:00am October 13, 2022 10:43am raNITIdine 300 mg oral tablet (13 sources) Histamine-2 Receptor Antagonist Start: 12-18-2015 take 300 mg by mouth once daily Ranitidine Hcl Active 300 MG PO DAILY December 17, 2015 11:00pm Start: 12-18-2015 End: 10-13-2022 take 1 tablet by mouth once daily Ranitidine Hcl 300 MG tablet Discontinued 300 mg PO DAILY December 18, 2015 12:00am October 13, 2022 9:20am Thyroid (Pork) ([place] Thyroid) 30 mg tablet (9 sources) Start: 10-13-2022 End: 02-17-2023 take 1 tablet by mouth once daily Thyroid (Pork) ([place] Thyroid) 30 mg tablet Discontinued 30 mg PO DAILY October 13, 2022 12:00am February 17, 2023 9:41am Start: 10-13-2022 End: 02-17-2023 take 1 tablet by mouth once daily Thyroid (Pork) ([place] Thyroid) 30 mg tablet Discontinued 30 MG PO DAILY October 13, 2022 12:00am February 17, 2023 9:41am Start: 10-13-2022 End: 02-17-2023 take 1 tablet by mouth once daily Thyroid (Pork) ([place] Thyroid) 30 mg tablet Discontinued 30 MG PO DAILY October 12, 2022 11:00pm February 17, 2023 8:41am Start: 10-13-2022 take 1 tablet by corbin th once daily Thyroid (Pork) ([place] Thyroid) 30 mg tablet Active 30 MG PO DAILY October 13, 2022 12:00am Problems Active Problems Problem Classification Problem Date Documented Da te Episodic/Chronic Anxiety disorders (9 sources) Anxiety; Translations: [Anxiety disorder, unspecified] 12-21-2023 Chronic Conditions associated with dizziness or vertigo (1 source) Dizziness and giddiness; Translations: [Dizziness and giddiness] Onset: 11-06-2024 Episodic Malaise and fatigue (8 sources) Fatigue; Translations: [Other fatigue] 02-17-2023 Episodic Mood disorders (9 sources) Depressive disorder; Translations: [Depression] 12-21-2023 Chronic Osteoarthritis (9 sources) Arthritis; Translations: [Unspecified osteoarthritis, unspecified site] 10-13-2022 Chronic Other connective tissue disease (9 sources) Muscle pain; Translations: [Myalgia, unspecified site] 10-13-2022 Episodic Other connective tissue disease (9 sources) Fibromyalgia; Translations: [Fibromyalgia] 03-03-2024 Episodic Other nervous system disorders (7 sources) Carpal tunnel syndrome; Translations: [Carpal tunnel syndrome, bilateral upper limbs] 02-18-2023 Chronic Other nervous system disorders (1 source) Carpal tunnel syndrome, bilateral upper limbs; Translations: [Carpal tunnel syndrome] 02-17-2023 Chronic Other nervous system disorders (14 sources) Paresthesia; Translations: [Paresthesia of skin] 06-17-2022 Episodic Residual codes; unclassified (7 sources) Hypersomnia; Translations: [Hypersomnia, unspecified] 03-19-2023 Chronic Residual codes; unclassified (2 sources) Hypersomnia, unspecified; Translations: [Hypersomnia, unspecified] 03-19-2023 Chronic Thyroid disorders (1 source) Hypothyroidism, unspecified; Translations: [Hypothyroidism, unspecified] Onset: 05-11-2024 Chronic Unclassified (1 source) Eosinophilia, unspecified; Translations: [Eosinophilia, unspecified] Onset: 12-21-2023 Past or Other Problems Problem Classification Problem Date Documented Da te Episodic/Chronic Cardiac dysrhythmias (1 source) Palpitations; Translations: [Palpitations] Onset: 05-12-2024 Episodic Other nervous system disorders (6 sources) Paresthesia of skin; Translations: [Disturbance of skin sensation] Onset: 12-21-2023 10-13-2022 Episodic Other screening for suspected conditions (not mental disorders or infectious disease) (1 source) Encounter for screening mammogram for malignant neoplasm of breast; Translations: [Encounter for screening mammogram for malignant neoplasm of breast] Onset: 05-16-2024 Episodic Spondylosis; intervertebral disc disorders; other back problems (20 sources) Low back pain; Translations: [Low back pain] Onset: 03-17-2024 10-18-2022 Episodic Results Test Name Value Interpretation Reference Range Facility OT D/C of Non Returning Pton 10-27-2024 OT D/C of Non Returning Pt [facility] Occup[facility] [address] [place] [address] [address] [place] [address] / REHABILITATION SERVICES DISCHARGE SUMMARY MR#: [id number] Acct: [id number] Name: JAYLIN OLIVEROS Rep #: [id number] : 1955 69 From: Harper Shields OTR/L, CHT Referring DrMing: SILVINO Greer Status: REG R CR Eval Date: Discharge Date: Patient Information Patient Information: JAYLIN OLIVEROS was seen in my office for initial evaluation on 07/22/24. The following Plan of Care was established for this patient: Anticipated Interventions Anticipated Interventions: A/AAROM/PROM, Triggerpoint Release, Orthoses, Joint Protection/Energy Conservation, Ergonomic Education, Education re Diagnosis and Home Program Last Seen Last Seen: This patient was last seen in our office 07/22/24. Pertinent comments regarding their Occupational therapy will appear below: No further apts have been scheduled. Due to time lapse in service pt is d/c. At this point I will be discontinuing this patient from occupational therapy. I would be happy to see this patient again in the future if found appropriate by the physician. Thank you! Harper Shields OTR/Jojo, T 10/27/24 0955 CC: SILVINO Greer; Dr. Chauncey Anderson, MK Signed Normal [facility] Neurology Visit Reporton Neurology Visit Report [facility] [address] [place] [address], [address] [place] [address] OFFICE VISIT Date of Service: 08/29/24 MR#: [id number] Acct: [id number] Name: JAYLIN OLIVEROS Rep #: [id number] : 1955 Provider: Dr. Jules escobar MD Age/Sex: 68/F Location: [facility] – [place]. Status: Signed HPI HPI Chief Complaint: Details: Interim History: Jaylin returns for follow-up visit. She has a history of hypothyroidism, osteoarthritis, psoriatic arthritis, and hyperlipidemia. She fell out of bed in the and strained her neck and has been having chronic neck pain since that time. Since around 2017, she has been experiencing low back pain. Since around 2018, she has had right lower extremity radicular pain that radiates to the ankle. She has felt that her right leg is weak and she also has had a more generalized feeling of heaviness in both legs. In October 2021, she strained her back performing heavy lifting and subsequently has had an exacerbation of her low back pain. Shortly following the onset of her lumbar strain in 2021, she began experiencing diffuse intermittent paresthesias that fluctuate and vary in location affecting her torso, face and all extremities. She described the paresthesias as a pins sensation. She also intermittently experiences a jolt type sensation in the spine and lower extremities. She has had intermittent painful muscle cramps in both lower extremities. She has had bilateral knee replacements (left in 2015; right in 2020). Lumbar imaging (11/18/21; performed prior to her lumbar strain in October 2021), revealed multilevel degenerative joint changes. No severe central canal or foraminal narrowing was noted. No change in her follow-up lumbar MRI in June 2023 was noted. Cervical spine MRI (January 2024 revealed mild central canal stenosis at C5-6 and multilevel foraminal stenosis. She has seen orthopedic surgeons (prior to her cervical spine MRI in January 2024) regarding her neck and back and the patient reported that no surgical intervention was felt to be warranted for her cervical pathology. On one orthopedic evaluation for her back, no surgical intervention was recommended though on seeking a second opinion regarding her back, the option of pursuing lumbar surgery was offered. She is seeing a painter apprentice, Dr. Renee, and is prescribed pregabalin and this is of benefit for her diffuse paresthesias. She has also had caudal injections and lumbar nerve blocks and has also had a cervical injection and these have been of benefit for her spinal axis pain however her paresthesias persist. Gabapentin caused cognitive side effects. She has had chronic fatigue since 2019; this has diminished. A B12 injection was not of benefit for her fatigue. She has had muscle aching and intermittent muscle tenderness. She has left shoulder pain due to a rotator cuff injury and had left rotator cuff surgery in 2023. She had aquatic therapy for her back pain and this was of some benefit. Physical therapy for her neck pain was of some benefit. She now participates in an aquatic exercise program and a light weight training exercise routine. Nerve conduction studies of the upper extremities reveal a mild to moderate right carpal tunnel syndrome and moderate left carpal tunnel syndrome. She had left carpal tunnel surgery in 2023 and her left hand pain has diminished somewhat. She had right carpal tunnel surgery in years past. She has had bilateral hand pain and had noted some weakness in the hands that did not improve following her carpal tunnel surgeries. She has seen an orthopedic surgeon earlier in 2024 and had injections at the base of the thumbs and these have been of benefit in reducing her hand pain. Baclofen 10 mg twice daily as needed has been of some benefit for her musculoskeletal pain and has been well-tolerated (10 mg 3 times daily was sedating). Celecoxib is of benefit. EMG/nerve conduction studies of the lower extremities were normal. Right lower extremity skin biopsies to assess for small fiber polyneuropathy was normal. She has had depression and anxiety; these have improved since initiation of duloxetine in 2023. She has had intentional weight loss (30 pounds since November 2023). Duloxetine is of some benefit for her muscle pain as well. She previously took Otezla for psoriasis. She states that on evaluation by a applique sewer she was not felt to have psoriatic arthritis however on evaluation by her supply teacher she was felt to have psoriatic arthritis. She uses wrist splints occasionally for her bilateral hand pain and this has been of some benefit. Physical Exam: Neuro: The patient is awake and alert and responds appropriately; speech is fluent; motor strength is 5/5 in the first dorsal interosseous bilaterally and abductor pollicis brevis bilaterally Heart: Regular rate and rhythm Supplemental Info Lumbar sp (more content not included)... Normal [facility] OT General Evaluationon 05- OT General Evaluation [facility] [address] [place] [address] / REHABILITATION SERVICES INITIAL EVALUATION MR#: [id number] Acct: [id number] Name: JAYLIN OLIVEROS Rep #: [id number] : 1955 68 From: Harper ALLISON CHT Referring Dr.: SILVINO Greer Status: REG R CR Insurance: MEDICARE PART A B Eval Date: [facility] Patient's Visit Information Visit Information Visit Information: JAYLIN OLIVEROS is a 68 year old F, referred to Occupational Therapy by SILVINO Greer, with a diagnosis of S66.391A extensor tendon injury/left IF pain. Date of Evaluation: 07/22/24 Occupational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 patient's physical therapy, please feel free to call me at [phone]. Thank you for the referral of this patient. Sincerely, Ron Keenan, DPT Balance/Gait/Functio nal tests Balance/Special Test Scores Quick DASH Score: 12.5000 Improvement % Improvement: 95 12/04/23 0848 CC: Dr. Chauncey Anderson, DO; Jorgito Diaz MD CLS Signed Normal [facility] CBC W/Diff, Automatedon 10-0 -2023 Absolute Lymph 1.72 X10 3/uL Normal 0.83-4.[address] [facility] Comment on above: Performed By: #### L [id number], L501.9985, L500.4100, L100.0100, L506.0400 #### [facility] [address] [place], [address] Absolute Neut 3.2 X10 3/uL Normal 2.0-7.[address] [facility] Comment on above: Performed By: #### L [id number], L501.9985, L500.4100, L100.0100, L506.0400 #### [facility] [address] [place], [address] Basophils/100 WBC (Bld) 0.7 % Normal 0-[address] [facility] Comment on above: Performed By: #### L [id number], L501.9985, L500.4100, L100.0100, L506.0400 #### [facility] [address] [place], [address] Eosinophils/100 WBC (Bld) 3.7 % Normal 0-[address] [facility] Comment on above: Performed By: #### L 501.9520, L501.9985, L500.4100, L100.0100, L506.0400 #### [facility] [address] [place], [address] Erythrocyte distribution width (RBC) [Ratio] 13.7 % Normal 11.6-14.[address] [facility] Comment on above: Performed By: #### L [id number], L501.9985, L500.4100, L100.0100, L506.0400 #### [facility] [address] [place], [address] Hematocrit (Bld) [Volume fraction] 40.3 % Normal 37-[address] [facility] Comment on above: Performed By: #### L 501.9520, L501.9985, L500.4100, L100.0100, L506.0400 #### [facility] [address] [place], [address] Hemoglobin (Bld) [Mass/Vol] 12.7 g/dL Normal 12.0-15.[address] [facility] Comment on above: Performed By: #### L 501.9520, L501.9985, L500.4100, L100.0100, L506.0400 #### [facility] [address] [place], [address] IG% 0.200 Normal 0.0-0.[address] [facility] Comment on above: Result Comment: IG% - Immature Granulocytes (promyelocytes, myelocytes and metamyelocytes) > 1% indicates that a LEFT SHIFT is Present. Performed By: #### L 501.9520, L501.9985, L500.4100, L100.0100, L506.0400 #### [facility] [address] [place], [address] Lymphocytes/100 WBC (Bld) 30.3 % Normal 19-[address] [facility] Comment on above: Performed By: #### L 501.9520, L501.9985, L500.4100, L100.0100, L506.0400 #### [facility] [address] [place], [address] MCH (RBC) [Entitic mass] 27.1 pg Normal 27.0-32.[address] [facility] Comment on above: Performed By: #### L 501.9520, L501.9985, L500.4100, L100.0100, L506.0400 #### [facility] [address] [place], [address] MCHC (RBC) [Mass/Vol] 31.5 g/dL Low 32-36 [facility] Comment on above: Performed By: #### L [id number], L501.9985, L500.4100, L100.0100, L506.0400 #### [facility] [address] [place], [address] MCV (RBC) [Entitic vol] 86.1 fL Normal 81-[address] [facility] Comment on above: Performed By: #### L 501.9520, L501.9985, L500.4100, L100.0100, L506.0400 #### [facility] [address] [place], [address] Monocytes/100 WBC (Bld) 9.0 % Normal 0-[address] [facility] Comment on above: Performed By: #### L 501.9520, L501.9985, L500.4100, L100.0100, L506.0400 #### [facility] [address] [place], [address] Neutrophils/100 WBC (Bld) 56.1 % Normal 47-[address] [facility] Comment on above: Performed By: #### L 501.9520, L501.9985, L500.4100, L100.0100, L506.0400 #### [facility] [address] [place], [address] Nucleated RBC (Bld) [#/Vol] 0 10*3/uL Normal 0-[address] [facility] Comment on above: Performed By: #### L 501.9520, L501.9985, L500.4100, L100.0100, L506.0400 #### [facility] [address] [place], [address] Platelet mean volume (Bld) [Entitic vol] 10.8 fL Normal 6.2-12.[address] [facility] Comment on above: Performed By: #### L 501.9520, L501.9985, L500.4100, L100.0100, L506.0400 #### [facility] [address] [place], [address] Platelets (Bld) [#/Vol] 255 10*3/uL Normal 150-[address] [facility] Comment on above: Performed By: #### L 501.9520, L501.9985, L500.4100, L100.0100, L506.0400 #### [facility] [address] [place], [address] RBC (Bld) [#/Vol] 4.68 10*6/uL Normal 4.2-5.4 [facility] Comment on above: Performed By: #### L 501.9520, L501.9985, L500.4100, L100.0100, L506.0400 #### [facility] [address] [place], [address] RDW SD 42.7 fl Normal 35.1-43.[address] [facility] Comment on above: Performed By: #### L 501.9520, L501.9985, L500.4100, L100.0100, L506.0400 #### [facility] [address] [place], [address] WBC (Bld) [#/Vol] 5.7 10*3/uL Normal 4.4-11.0 [facility] Comment on above: Performed By: #### L 501.9520, L501.9985, L500.4100, L100.0100, L506.0400 #### [facility] [address] [place], [address] Hemoglobin A1con 11-30-2023 HbA1c (Bld) [Mass fraction] 6.0 % High 3.8-5.[address] [facility] Comment on above: Result Comment: Norm al < 5.7 % Prediabetic 5.7 - 6.4 % Diabetic >or= 6.5 % Please note range changes. Performed By: #### L 501.9520, L501.9985, L500.4100, L100.0100, L506.0400 #### [facility] [address] [place], [address] Lipid Profileon 11-30-2023 Cholesterol [Mass/Vol] 223 mg/dL High 200 [facility] Comment on above: Result Comment: <200 mg/dL Desirable 200-240 mg/dL Borderline >240 mg/dL High Risk Performed By: #### L 501.9520, L501.9985, L500.4100, L100.0100, L506.0400 #### [facility] [address] [place], [address] Cholesterol in HDL [Mass/Vol] 36 mg/dL Low [facility] Comment on above: Result Comment: The drugs N-Acetylcysteine and Metamizole may falsely depress this assay. Reference Range HDL <40 mg/dL Low HDL Cholesterol HDL >or= 60 mg/dL High HDL Cholesterol Performed By: #### L 501.9520, L501.9985, L500.4100, L100.0100, L506.0400 #### [facility] [address] [place], [address] Cholesterol in LDL [Mass/Vol] 121 mg/dL Normal 0-[address] [facility] Comment on above: Performed By: #### L 501.9520, L501.9985, L500.4100, L100.0100, L506.0400 #### [facility] [address] [place], [address] Cholesterol in VLDL [Mass/Vol] 66 mg/dL High 5-[address] [facility] Comment on above: Performed By: #### L 501.9520, L501.9985, L500.4100, L100.0100, L506.0400 #### [facility] [address] [place], [address] Triglyceride [Mass/Vol] 331 mg/dL High W [facility] Comment on above: Result Comment: The drugs N-Acetylcysteine and Metamizole may falsely depress this assay. Serum Triglycerides Reference Interval Normal <150 mg/dL Borderline high 150 - 199 mg/dL High 200 - 499 mg/dL Very High > or = 500 mg/dL Performed By: #### L 501.9520, L501.9985, L500.4100, L100.0100, L506.0400 #### [facility] [address] [place], [address] T4 Free Directon 11-30-2023 T4 FREE DIRECT 0.91 ng/dL Normal 0.76-1.[address] [facility] Comment on above: Performed By: #### L 501.9520, L501.9985, L500.4100, L100.0100, L506.0400 #### [facility] [address] [place], [address] Thyroid Stim Hormone (TSH)on 11-30-2023 TSH 0.618 uIU/mL Normal 0.358-3.[address] [facility] Comment on above: Performed By: #### L 501.9520, L501.9985, L500.4100, L100.0100, L506.0400 #### [facility] [address] [place], [address] Aldolase ser/plasOrdered By: Jules Payne on 10-14-2022 Aldolase [Catalytic activity/Vol] 3.8 mU/mL 3.3-10.[address] [facility] Basophil percentageOrdered B y: Jules Payne on 10-14-2022 Basophil percentage Not Reportable [facility] Chloride [Moles/Vol] 105 mmol/L 98-107 [facility] Glucose [Mass/Vol] 100 mg/dL 74-106 [facility] Comment on above: Fasting Glucose resu lt from 100 to 125 mg/dL suggests IMPAIRED HOMEOSTASIS per A.D.A. criteria. Potassium [Moles/Vol] 3.8 mmol/L 3.5-5.1 [facility] Sodium [Moles/Vol] 139 mmol/L 136-145 [facility] Erythrocyte sedimentation ra teOrdered By: Jules Payne on 10-14-2022 ESR (Bld) [Velocity] 7 mm/h 0-30 [facility] - Chemistry and C hemistry - challengeOrdered By: Jules Payne on 10-14-2022 CK [Catalytic activity/Vol] 38 U/L 26-[address] [facility] CO2 [Moles/Vol] 27.0 mmol/L 21.0-32.[address] [facility] Cobalamin (Vitamin B12) [Mass/Vol] 406 pg/mL 211-[address] [facility] Myoglobin [Mass/Vol] 27 ng/mL 25-58 [facility] Comment on above: Performed at: CB - L [address] [id number] Director: Maikel Zhang PhD, Phone: [phone] at: - [facility] [address] [id number] Director: Ofelia Gonzales MD, Phone: [phone] Urea nitrogen/Creatinine [Mass ratio] 23.7 mg/mg 10-[address] [facility] No Panel InformationOrdered By: Jules Payne on 10-14-2022 Anti-Nuclear Antibody Screen Negative Negative [facility] Comment on above: Performed at: [facility] [address] [id number] Director: Maikel Zhang PhD, Phone: [phone] Centromere B Antibody Not Reportable [facility] Estimated GFR (MDRD) Amer 131 mL/min >[address] [facility] Comment on above: GFR Calc Estimated GFR (MDRD) Non-Af Amer 108 mL/min >[address] [facility] Comment on above: Non- GFR Calc Free Lambda Light Chains, Quant 12.5 mg/L 5.7-26.[address] [facility] STOCK MOVER Antibody Not Reportable [facility] Whole Blood Vitamin B1 Level 175.0 nmol/L 66.5-200.[address] [facility] Serum DNA double strand anti body assay (units/volume)Ordered By: Jules Payne on 10-14-2022 DNA double strand Ab Qn (S) Not Reportable [facility] Serum Alexa-1 antibody assay (u nits/volume)Ordered By: Jules Payne on 10-14-2022 Alexa-1 extractable nuclear Ab Qn (S) Not Reportable [facility] Serum Scl-70 extractable nuc lear antibody assay (units/volume)Ordered By: Jules Payne on 10-14-2022 SCL-70 extractable nuclear Ab Qn (S) Not Reportable [facility] Serum Bassett extractable nucl ear antibody detectionOrdered By: Jules Payne on 10-14-2022 Bassett extractable nuclear Ab Ql (S) Not Reportable [facility] Serum immunoglobulin kappa l ight chains/immunoglobulin lambda light chains mass ratioOrdered By: Jules Payne on 10-14-2022 Immunoglobulin light chains.kappa/Immunoglob ulin light chains.lambda (S) [Mass ratio] 1.15 0.26-1.[address] [facility] Serum or plasma C reactive p rotein measurement (mass/volume)Ordered By: Jules Payne on 10-14-2022 CRP [Mass/Vol] 6.85 mg/L 0.0-3.[address] [facility] Comment on above: C-Reactive Protein ( CRP) provides useful information for thediagnosis, therapy and monitoring of inflammatory processesand associated diseases. For the evaluation of Relative Riskfor Cardiovascular Disease, a High Sensitivity CRP (HSCRP)should be ordered. Serum or plasma calcium kingsley urement (mass/volume)Ordered By: Jules Payne on 10-14-2022 Calcium [Mass/Vol] 9.2 mg/dL 8.5-10.1 [facility] Serum or plasma creatinine m easurement (mass/volume)Ordered By: Jules Payne on 10-14-2022 Creatinine [Mass/Vol] 0.59 mg/dL 0.55-1.02 [facility] Comment on above: The validity of the calculated GFR & GFRAA in patients over 70 years has not been determined. Clinical correlation is essential. Serum or plasma folate measu rement (mass/volume)Ordered By: Jules Payne on 10-14-2022 Folate [Mass/Vol] 28.70 ng/mL 3.1-55.4 [facility] Serum or plasma immunoglobul in kappa light chains measurement (mass/volume)Ordered By: Jules Payne on 10-14-2022 Immunoglobulin light chains.kappa [Mass/Vol] 14.4 mg/L 3.3-19.[address] [facility] Serum or plasma urea nitroge n measurement (mass/volume)Ordered By: Jules Payne on 10-14-2022 Urea nitrogen [Mass/Vol] 14 mg/dL 7-[address] [facility] Serum rheumatoid factor dete ctionOrdered By: Jules Payne on 10-14-2022 Rheumatoid factor Ql (S) < 10.0 IU/mL <[address] [facility] Thin prep Papanicolaou smear with manual screeningOrdered By: Jules Payne on 10-14-2022 Thin prep Papanicolaou smear with manual screening 7 5-[address] [facility] Absolute lymphocyte countOrd ered By: Yas Silva on 09-04-2022 Lymphocytes Auto (Unsp spec) [#/Vol] 1.94 10*3/uL 0.83-4.[address] [facility] Basophil percentageOrdered B y: Yas Silva on 09-04-2022 Basophils/100 WBC (Bld) 0.5 % 0-[address] [facility] Bilirubin [Mass/Vol] 0.40 mg/dL 0.20-1.00 [facility] Comment on above: For patients on eltr ombopag therapy, use of Dimension Orange TBIL is not recommended. Chloride [Moles/Vol] 105 mmol/L 98-107 [facility] Cholesterol [Mass/Vol] 194 mg/dL <200 [facility] Comment on above: <200 mg/dL Desirable 200-240 mg/dL Borderline >240 mg/dL High Risk Eosinophils/100 WBC (Bld) 5.7 % 0-[address] [facility] Glucose [Mass/Vol] 93 mg/dL 74-106 [facility] Neutrophils (Bld) [#/Vol] 2.8 10*3/uL 2.0-7.[address] [facility] Neutrophils/100 WBC (Bld) 50.7 % 47-[address] [facility] Potassium [Moles/Vol] 3.6 mmol/L 3.5-5.1 [facility] Protein [Mass/Vol] 6.7 g/dL 6.4-8.2 [facility] Sodium [Moles/Vol] 138 mmol/L 136-145 [facility] Triglyceride [Mass/Vol] 224 mg/dL <[address] [facility] Comment on above: The drugs N-Acetylcy steine and Metamizole may falsely depress this assay.Serum Triglycerides Reference Interval Normal <150 mg/dL Borderline high 150 - 199 mg/dL High 200 - 499 mg/dL Very High > or = 500 mg/dL WBC (Bld) [#/Vol] 5.6 10*3/uL 4.4-11.0 [facility] Blood erythrocytes count (nu mber/volume)Ordered By: Yas Silva on 09-04-2022 RBC (Bld) [#/Vol] 4.28 10*6/uL 4.2-5.4 [facility] Blood hemoglobin measurement (mass/volume)Ordered By: Yas Silva on 09-04-2022 Hemoglobin (Bld) [Mass/Vol] 12.0 g/dL 12.0-15.[address] [facility] Blood lymphocytes/100 leukoc ytesOrdered By: Yas Silva on 09-04-2022 Lymphocytes/100 WBC (Bld) 34.8 % 19-[address] [facility] Blood monocytes/100 leukocyt esOrdered By: Yas Silva on 09-04-2022 Monocytes/100 WBC (Bld) 7.9 % 0-[address] [facility] Blood platelet mean volumeOr dered By: Yas Silva on 09-04-2022 Platelet mean volume (Bld) [Entitic vol] 10.3 fL 6.2-12.[address] [facility] Cerebrospinal fluid Borrelia burgdorferi 18kd IgG antibody detection by immunoblotOrdered By: Yas Silva on 09-04-2022 B. burgdorferi 18kD IgG IB Ql (CSF) Absent . [facility] Cerebrospinal fluid Borrelia burgdorferi 23kD IgG antibody detection by immunoblotOrdered By: Yas Silva on 09-04-2022 B. burgdorferi 23kD IgG IB Ql (CSF) Absent . [facility] Cerebrospinal fluid Borrelia burgdorferi 23kD IgM antibody detection by immunoblotOrdered By: Yas Silva on 09-04-2022 B. burgdorferi 23kD IgM IB Ql (CSF) Present . [facility] Cerebrospinal fluid Borrelia burgdorferi 28kD IgG antibody detection by immunoblotOrdered By: Yas Silva on 09-04-2022 B. burgdorferi 28kD IgG IB Ql (CSF) Absent . [facility] Cerebrospinal fluid Borrelia burgdorferi 39kD IgG antibody detection by immunoblotOrdered By: Yas Silva on 09-04-2022 B. burgdorferi 39kD IgG IB Ql (CSF) Absent . [facility] Cerebrospinal fluid Borrelia burgdorferi 39kD IgM antibody detection by immunoblotOrdered By: Yas Silva on 09-04-2022 B. burgdorferi 39kD IgM IB Ql (CSF) Absent . [facility] Cerebrospinal fluid Borrelia burgdorferi 41kD IgM antibody detection by immunoblotOrdered By: Yas Silva on 09-04-2022 B. burgdorferi 41kD IgM IB Ql (CSF) Absent . [facility] Determination of erythrocyte mean corpuscular volume (MCV)Ordered By: Yas Silva on 09-04-2022 MCV (RBC) [Entitic vol] 87.4 fL 81-[address] [facility] Hematocrit Auto (Bld) [Volum e fraction]Ordered By: Yas Silva on 09-04-2022 Hematocrit (Bld) [Volume fraction] 37.4 % 37-[address] [facility] - Chemistry and C hemistry - challengeOrdered By: Yas Silva on 09-04-2022 ALP [Catalytic activity/Vol] 79 U/L 45-[address] [facility] ALT [Catalytic activity/Vol] 22 U/L 13-[address] [facility] CO2 [Moles/Vol] 28.0 mmol/L 21.0-32.[address] [facility] Free T4 [Mass/Vol] 0.87 ng/dL 0.76-1.46 [facility] Globulin (S) [Mass/Vol] 3.5 g/dL 2.2-4.[address] [facility] Urea nitrogen/Creatinine [Mass ratio] 21.5 mg/mg 10-[address] [facility] - Hematology and Cell countsOrdered By: Yas Silva on 09-04-2022 Erythrocyte distribution width (RBC) [Entitic vol] 40.8 fL 35.1-43.[address] [facility] Erythrocyte distribution width (RBC) [Ratio] 12.8 % 11.6-14.[address] [facility] Immature granulocytes/100 WBC (Bld) 0.400 % 0.0-0.[address] [facility] Comment on above: IG% - Immature Granu locytes (promyelocytes, myelocytes and metamyelocytes) > 1% indicates that a LEFT SHIFT is Present. MCH (RBC) [Entitic mass] 28.0 pg 27.0-32.[address] [facility] Nucleated RBC/100 WBC (Bld) [Ratio] 0 % 0-[address] [facility] MCHC Auto (RBC) [Mass/Vol]Or dered By: Yas Silva on 09-04-2022 MCHC (RBC) [Mass/Vol] 32.1 g/dL 32-36 [facility] No Panel InformationOrdered By: Yas Silva on 09-04-2022 Estimated GFR (MDRD) Amer 128 mL/min >[address] [facility] Comment on above: GFR Calc Estimated GFR (MDRD) Non-Af Amer 105 mL/min >[address] [facility] Comment on above: Non- GFR Calc Lyme Disease IgG Ab 30 kDa Band Absent . [facility] Lyme Disease IgG Ab 93 kDa Band Absent . [facility] Lyme Disease IgG West Blot Interp Negative . [facility] Comment on above: Positive: 5 of the f ollowing Borrelia-specific bands: 18,23,28,30,39,41,45,58, 66, and 93. Negative: No bands or banding patterns which do not meet positive criteria. Lyme Disease IgM Ab (Western Blot) Negative . [facility] Comment on above: Note: An equivocal o r positive EIA result followed by anegative Line Blot result is considered NEGATIVE. Anequivocal or positive EIA result followed by a positiveLine Blot is considered POSITIVE by the CDC.Positive: 2 of the following bands: 23,39 or 41Negative: No bands or banding patterns which do not meetpositive criteria.Criteria for positivity are those recommended byCDC/ASTPHLD. p23=Osp C, i22=nliricaxgMvvv:Sera from individuals with the following may cross reactin the Lyme Line Blot assays: other spirochetal diseases(periodontal disease, leptospirosis, relapsing fever, yaws,and pinta); connective autoimmune (Rheumatoid Arthritis andSystemic Lupus Erythematosus and also individuals withAntinuclear Antibody); other infections (Jus MountainSpotted Fever; Shun-Wilkins Virus, and Cytomegalovirus).Please Note: Lyme immunoblot alone is not recommended forthe diagnosis of Lyme disease. Current guidelines recommendthe use of a two-tiered approach to Lyme serology testingto improve the sensitivity and specificity of testing.[facility] offers test code 441763 Lyme Disease Serology withReflex to aid in the diagnosis of Lyme Disease.Performed at: [address] [id number] Director: Ofelia Gonzales MD, Phone: [phone] Thyroid Stimulating Hormone (TSH) 1.44 uIU/mL 0.358-3.[address] [facility] Platelets bldOrdered By: Reji Silva on 09-04-2022 Platelets (Bld) [#/Vol] 248 10*3/uL 150-[address] [facility] Serum Borrelia burgdorferi 4 1kD IgG antibody detection by immunoblotOrdered By: Yas Silva on 09-04-2022 B. burgdorferi 41kD IgG IB Ql (S) Absent . [facility] Serum Borrelia burgdorferi 6 6kD IgG antibody detection by immunoblotOrdered By: Yas Silva on 09-04-2022 B. burgdorferi 66kD IgG IB Ql (S) Absent . [facility] Serum heterophile antibody d etectionOrdered By: Yas Silva on 09-04-2022 Heterophile Ab Ql (S) Negative Negative [facility] Serum or plasma albumin kingsley urement (mass/volume)Ordered By: Yas Silva on 09-04-2022 Albumin [Mass/Vol] 3.2 g/dL 3.2-5.0 [facility] Serum or plasma albumin/glob ulin mass ratioOrdered By: Yaspedro Silva 09-04-2022 Albumin/Globulin [Mass ratio] 0.9 {ratio} 0.9-2.[address] [facility] Serum or plasma calcium kingsley urement (mass/volume)Ordered By: Yas Silva 09-04-2022 Calcium [Mass/Vol] 8.6 mg/dL 8.5-10.1 [facility] Serum or plasma cholesterol in HDL measurement (mass/volume)Ordered By: Yas Silva 09-04-2022 Cholesterol in HDL [Mass/Vol] 36 mg/dL >[address] [facility] Comment on above: The drugs N-Acetylcy steine and Metamizole may falsely depress this assay. Reference Range HDL <40 mg/dL Low HDL Cholesterol HDL >or= 60 mg/dL High HDL Cholesterol Serum or plasma cholesterol in VLDL measurement (mass/volume)Ordered By: Yas Silva on 09-04-2022 Cholesterol in VLDL [Mass/Vol] 45 mg/dL 5-[address] [facility] Serum or plasma creatinine m easurement (mass/volume)Ordered By: Yas Silva 09-04-2022 Creatinine [Mass/Vol] 0.60 mg/dL 0.55-1.02 [facility] Comment on above: The validity of the calculated GFR & GFRAA in patients over 70 years has not been determined. Clinical correlation is essential. Serum or plasma low density lipoprotein (LDL) cholesterol measurement (mass/volume)Ordered By: Yas Silva on 09-04-2022 Cholesterol in LDL [Mass/Vol] 113 mg/dL 0-[address] [facility] Serum or plasma urea nitroge n measurement (mass/volume)Ordered By: Yas Silva 09-04-2022 Urea nitrogen [Mass/Vol] 13 mg/dL 7-[address] [facility] Synovial fluid Borrelia magnus dorferi 45kD IgG antibody detection by immunoblotOrdered By: Yas Silva on 09-04-2022 B. burgdorferi 45kD IgG IB Ql (Syn fld) Absent . [facility] Synovial fluid Borrelia magnus dorferi 58kD IgG antibody detection by immunoblotOrdered By: Yas Silva on 09-04-2022 B. burgdorferi 58kD IgG IB Ql (Syn fld) Absent . [facility] Thin prep Papanicolaou smear with manual screeningOrdered By: Adams Ricardo on 09-04-2022 Thin prep Papanicolaou smear with manual screening 18 U/L 15-[address] [facility] Thin prep Papanicolaou smear with manual screening 5 5-[address] [facility] Basophil percentageon 2021 Bilirubin [Mass/Vol] 0.40 mg/dL 0.20-1.00 [facility] Work Phone: Comment on above: For patients on eltr ombopag therapy, use of Dimension Orange TBIL is not recommended. Cholesterol [Mass/Vol] 190 mg/dL <200 [facility] Work Phone: Comment on above: <200 mg/dL Desirable 200-240 mg/dL Borderline >240 mg/dL High Risk Protein [Mass/Vol] 7.5 g/dL 6.4-8.2 [facility] Work Phone: Triglyceride [Mass/Vol] 368 mg/dL <[address] [facility] Work Phone: Comment on above: The drugs N-Acetylcy steine and Metamizole may falsely depress this assay.Serum Triglycerides Reference Interval Normal <150 mg/dL Borderline high 150 - 199 mg/dL High 200 - 499 mg/dL Very High > or = 500 mg/dL Direct bilirubinon 2 Bilirubin.direct [Mass/Vol] 0.07 mg/dL 0.00-0.[address] [facility] Work Phone: Laboratory - Chemistry and C hemistry - challengeon 11-16-2021 ALP [Catalytic activity/Vol] 98 U/L 45-[address] [facility] Work Phone: ALT [Catalytic activity/Vol] 21 U/L 13-[address] [facility] Work Phone: Globulin (S) [Mass/Vol] 3.8 g/dL 2.2-4.[address] [facility] Work Phone: Serum or plasma albumin kingsley urement (mass/volume)on 11-16-2021 Albumin [Mass/Vol] 3.7 g/dL 3.2-5.0 [facility] Work Phone: Serum or plasma cholesterol in HDL measurement (mass/volume)on 11-16-2021 Cholesterol in HDL [Mass/Vol] 35 mg/dL >[address] [facility] Work Phone: Comment on above: The drugs N-Acetylcy steine and Metamizole may falsely depress this assay. Reference Range HDL <40 mg/dL Low HDL Cholesterol HDL >or= 60 mg/dL High HDL Cholesterol Serum or plasma cholesterol in VLDL measurement (mass/volume)on 11-16-2021 Cholesterol in VLDL [Mass/Vol] 74 mg/dL 5-[address] [facility] Work Phone: Serum or plasma low density lipoprotein (LDL) cholesterol measurement (mass/volume)on 11-16-2021 Cholesterol in LDL [Mass/Vol] 81 mg/dL 0-[address] [facility] Work Phone: Thin prep Papanicolaou smear with manual screeningon 11-16-2021 Thin prep Papanicolaou smear with manual screening 15 U/L 15-[address] [facility] Work Phone: CNOVon 03-30-2019 CNOV Office Visit ([facility]) JAYLIN OLIVEROS ([id number]) 1955 F Date Time Provider Department 03/30/19 8:30 AM SHANNAN CORTEZ PA-C [facility] During your visit today, we recorded the following information about you: Temperature Pulse Respiration Blood pressure 97.4 degrees 74/minute 16/minute 124/82 Weight 85.3 kg Shannan Cortez PA-C 03/30/2019 3:56 PM Signed 03/30/2019 Patient presents with: Sore Throat: headache, head congestion x 2 days SUBJECTIVE: This is a 63 year old that is here today for Complaint(s) of sore throat x 2 days. Head congestion and cough started over the last 24 hours. Denies fever/chills, SOB, wheezing, vomiting, diarrhea. PAST MEDICAL HISTORY Diagnosis Date - Generalized osteoarthrosis, unspecified site - Internal hemorrhoids without mention of complication - Meniscus tear Right knee - Old disruption of anterior cruciate ligament 2002 ACL tear, Left knee - Personal history of colonic polyps Colon polyps - Personal history of malignant neoplasm of rectum, rectosigmoid junction, and anus - Unspecified hemorrhoids without mention of complication Hemorrhoids ALLERGIES Poison Jim; Seasonal Allergies MEDICATIONS Current Outpatient Medications Medication Sig - CINNAMON BARK (CINNAMON ORAL) Take by mouth. - Omeprazole 40 mg capsule - celecoxib (CELEBREX) 200 mg capsule Take 1 capsule by mouth once daily. - COMPOUNDED PRESCRIPTION CBC , CMP, Lipid, Amylase, Lipase. UA with Micro. Sed Rate . CRP . Dx R10.11 - Cholecalciferol, Vitamin D3, (VITAMIN D-3) 1,000 unit chew Take by mouth. - loratadine 10 mg ORAL tablet Take one(1) tablet daily ([id number]), prn - COCONUT OIL ORAL Take by mouth once daily. - Cranberry Extract (CRANBERRY CONCENTRATE) 500 mg cap Take by mouth. - Magnesium Oxide 500 mg cap Take by mouth. - PLANT STANOL MERVIN (CHOLEST OFF ORAL) Take by mouth. No current facility-administere d medications for this visit. SOCIAL HISTORY Social History Tobacco Use - Smoking status: Never Smoker - Smokeless tobacco: Never Used Substance Use Topics - Alcohol use: Yes Comment: Rarely - Drug use: No REVIEW OF SYSTEMS See HPI OBJECTIVE: BP 124/82 Pulse 74 Temp 36.3 ?C (97.4 ?F) (Tympanic) Resp 16 Wt 85.3 kg (188 lb) BMI 34.39 kg/m? APPEARANCE Well appearing, alert, in no acute distress, well-hydrated, well nourished. EYES PERRLA, conjunctiva and sclera normal. EARS External ears normal, canals clear. TMs normal AJ NOSE/SINUS Nares normal. Septum midline. Mucosa normal. No drainage or sinus tenderness. THROAT + posterior oropharyngeal erythema, no exudate. Uvula midline NECK Supple, no adenopathy HEART RRR with normal S1 and S2, LUNG clear to auscultation, No wheezing, rhonchi, rales. ASSESSMENT/PLAN: 1. Sore throat - ICD9: 462, ICD10: J02.9 - Rapid Strep negative in the office today and Throat culture pending - Discussed supportive care treatment with fluids, rest and analgesia. - The patient may also use warm salt water gargles, throat lozenges and/or OTC throat spray as needed and nasal saline gtts and suction prn. - The patient should follow up in 3-5 days if symptoms persist or worsen - Call back if drooling, increased temperature, symptoms of dehydration and/or still sick in one week - GROUP A STREPTOCOCCUS BY PCR - RAPID STREP TEST B/O Shannan Cortez PA-C Referring Provider: SELF [200] Allergies As of Date: 03/30/2019 Noted Allergy Reaction POISON JIM 10/23/2004 2 - Rash SEASONAL ALLERGIES 06/14/2010 14 - Other: See Comments Date Reviewed: 03/30/2019 Reviewed by: Samira Monae Ma - Fully Assessed Reason for Visit: Sore Throat [200] Cmt: headache, head congestion x 2 days Primary Visit Diagnosis:Sore throat [J02.9] Order(s):GROUP A STREPTOCOCCUS BY PCR [SQGASPCR] Order #: [id number] RAPID STREP TEST B/O [[id number]] Order #: [id number] Prescriptions as of 03/30/2019 Sig: CINNAMON ORAL Take by mouth. OMEPRAZOLE 40 MG CAPSULE,SANDRA* CELECOXIB 200 MG CAPSULE Take 1 capsule by mouth once * COMPOUNDED PRESCRIPTION CBC , CMP, Lipid, Amylase, Li* CHOLECALCIFEROL (VITAMIN D3) * Take by mouth. * LORATADINE 10 MG TABLET Take one(1) tablet daily (ove* COCONUT OIL ORAL Take by mouth once daily. CRANBERRY EXTRACT 500 MG CAPS* Take by mouth. MAGNESIUM OXIDE 500 MG CAPSULE Take by mouth. CHOLEST OFF ORAL Take by mouth. Problem List As Of Date 03/30/2019 Noted Resolved GENERAL OSTEOARTHROSIS [M15.9] Unspecified hemorrhoids without mention of comp* 11/26/2015 More... PERS HX COLONIC POLYPS [Z86.010] More... Cough [R05] 03/28/2009 11/26/2015 GERD (Gastroesophageal Reflux Disease) [K21.9] 03/28/2009 Osteoarthritis [M19.90] 03/28/2009 Meniscus tear [S83.209A] 12/17/2011 Shingles [B02.9] 06/20/2012 Kidney stone [N20.0] 06/20/2012 Encounter Status:Closed by SHANNAN CORTEZ PA-C on 03/30/19 Normal [facility] Group A Strep by PCRon 03-30 GAS Specimen Source Throat Swab Normal [facility] Comment on above: Performed By: #### G ASPCR #### [facility] [address] [address] Group A Strep PCR Negative Normal [facility] Comment on above: Result Comment: This test was developed and its performance characteristics determined by [facility]'s Navarro Yao [facility] Pathology and Laboratory Medicine [place] ( [facility]). It has not been cleared or approved by the FDA. [facility] is regulated under CLIA as qualified to perform high complexity testing. This test is used for clinical purposes. It should not be regarded as investigational or for research. Performed By: #### G ASPCR #### [facility] [address] [address] PROGRESSon 03-30-2019 PROGRESS HNO ID: [id number] Author: Shannan Cortez Service: ? Author Type: Physician Chief Of Safety And Protection Type: Progress Notes Filed: 03/30/2019 3:56 PM Note Text: 03/30/2019 Patient presents with: Sore Throat: headache, head congestion x 2 days SUBJECTIVE: This is a 63 year old that is here today for Complaint(s) of sore throat x 2 days. Head congestion and cough started over the last 24 hours. Denies fever/chills, SOB, wheezing, vomiting, diarrhea. PAST MEDICAL HISTORY Diagnosis Date - Generalized osteoarthrosis, unspecified site - Internal hemorrhoids without mention of complication - Meniscus tear Right knee - Old disruption of anterior cruciate ligament 2002 ACL tear, Left knee - Personal history of colonic polyps Colon polyps - Personal history of malignant neoplasm of rectum, rectosigmoid junction, and anus - Unspecified hemorrhoids without mention of complication Hemorrhoids ALLERGIES Poison Jim; Seasonal Allergies MEDICATIONS Current Outpatient Medications Medication Sig - CINNAMON BARK (CINNAMON ORAL) Take by mouth. - Omeprazole 40 mg capsule - celecoxib (CELEBREX) 200 mg capsule Take 1 capsule by mouth once daily. - COMPOUNDED PRESCRIPTION CBC , CMP, Lipid, Amylase, Lipase. UA with Micro. Sed Rate . CRP . Dx R10.11 - Cholecalciferol, Vitamin D3, (VITAMIN D-3) 1,000 unit chew Take by mouth. - loratadine 10 mg ORAL tablet Take one(1) tablet daily ([id number]), prn - COCONUT OIL ORAL Take by mouth once daily. - Cranberry Extract (CRANBERRY CONCENTRATE) 500 mg cap Take by mouth. - Magnesium Oxide 500 mg cap Take by mouth. - PLANT STANOL MERVIN (CHOLEST OFF ORAL) Take by mouth. No current facility-administere d medications for this visit. SOCIAL HISTORY Social History Tobacco Use - Smoking status: Never Smoker - Smokeless tobacco: Never Used Substance Use Topics - Alcohol use: Yes Comment: Rarely - Drug use: No REVIEW OF SYSTEMS See HPI OBJECTIVE: BP 124/82 Pulse 74 Temp 36.3 ?C (97.4 ?F) (Tympanic) Resp 16 Wt 85.3 kg (188 lb) BMI 34.39 kg/m? APPEARANCE Well appearing, alert, in no acute distress, well-hydrated, well nourished. EYES PERRLA, conjunctiva and sclera normal. EARS External ears normal, canals clear. TMs normal AJ NOSE/SINUS Nares normal. Septum midline. Mucosa normal. No drainage or sinus tenderness. THROAT + posterior oropharyngeal erythema, no exudate. Uvula midline NECK Supple, no adenopathy HEART RRR with normal S1 and S2, LUNG clear to auscultation, No wheezing, rhonchi, rales. ASSESSMENT/PLAN: 1. Sore throat - ICD9: 462, ICD10: J02.9 - Rapid Strep negative in the office today and Throat culture pending - Discussed supportive care treatment with fluids, rest and analgesia. - The patient may also use warm salt water gargles, throat lozenges and/or OTC throat spray as needed and nasal saline gtts and suction prn. - The patient should follow up in 3-5 days if symptoms persist or worsen - Call back if drooling, increased temperature, symptoms of dehydration and/or still sick in one week - GROUP A STREPTOCOCCUS BY PCR - RAPID STREP TEST B/O Shannan Cortez PA-C Normal [facility] Vital Signs Date Time Vital Sign Value Performing Clinician Faci lity 08-29-2024 08:21-0400 Body temperature 98 [degF] Dr. Chauncey Anderson DO Work Phone: [facility] 08-29-2024 08:21-0400 Body weight 75.[address] Chauncey Anderson DO Work Phone: [facility] 08-29-2024 08:21-0400 Diastolic blood pressure 83 mm[Hg] Dr. Chauncey Anderson DO Work Phone: [facility] 08-29-2024 08:21-0400 Heart rate 75 /min Dr. Chauncey Anderson DO Work Phone: [facility] 08-29-2024 08:21-0400 Respiratory rate 17 /min Dr. Chauncey Anderson DO Work Phone: [facility] 08-29-2024 08:21-0400 SaO2% (BldA) [Mass fraction] 75 % Dr. Chauncey Anderson DO Work Phone: [facility] 08-29-2024 08:21-0400 Systolic blood pressure 134 mm[Hg] Dr. Chauncey Anderson DO Work Phone: [facility] 05-23-2024 13:00-0400 Body height 157.[address] Chauncey Anderson DO Work Phone: [facility] 05-23-2024 13:00-0400 Body weight 81.[address] Chauncey Anderson DO Work Phone: [facility] 04-13-2024 15:02-0500 Body height 157.[address] Chauncey Anderson DO Work Phone: [facility] 04-13-2024 15:02-0500 Body weight 83.[address] Chauncey Anderson DO Work Phone: [facility] 03-03-2024 08:22-0500 Body mass index (BMI) [Ratio] 34.4 kg/m2 Dr. Chauncey Anderson DO Work Phone: [facility] 03-03-2024 08:22-0500 Body temperature 97.7 [degF] Dr. Chauncey Anderson DO Work Phone: [facility] 03-03-2024 08:22-0500 Body weight 85.[address] Chauncey Anderson DO Work Phone: [facility] 03-03-2024 08:22-0500 Diastolic blood pressure 82 mm[Hg] Dr. Chauncey Anderson DO Work Phone: [facility] 03-03-2024 08:22-0500 Heart rate 76 /min Dr. Chauncey Anderson DO Work Phone: [facility] 03-03-2024 08:22-0500 Respiratory rate 16 /min Dr. Chauncey Anderson DO Work Phone: [facility] 03-03-2024 08:22-0500 SaO2% (BldA) [Mass fraction] 95 % Dr. Chauncey Anderson DO Work Phone: [facility] 03-03-2024 08:22-0500 Systolic blood pressure 138 mm[Hg] Dr. Chauncey Anderson DO Work Phone: [facility] 06-22-2023 07:56-0400 Body height 157.[address] Chauncey Anderson Work Phone: [facility] 06-22-2023 07:56-0400 Body mass index (BMI) [Ratio] 35.4 kg/m2 Dr. Chauncey Anderson Work Phone: [facility] 06-22-2023 07:56-0400 Body temperature 97.8 [degF] Dr. Chauncey Anderson Work Phone: [facility] 06-22-2023 07:56-0400 Body weight 87.[address] Chauncey Anderson Work Phone: [facility] 06-22-2023 07:56-0400 Diastolic blood pressure 78 mm[Hg] Dr. Chauncey Anderson Work Phone: [facility] 06-22-2023 07:56-0400 Heart rate 85 /min Dr. Chauncey Anderson Work Phone: [facility] 06-22-2023 07:56-0400 Respiratory rate 17 /min Dr. Chauncey Anderson Work Phone: [facility] 06-22-2023 07:56-0400 SaO2% (BldA) [Mass fraction] 95 % Dr. Chauncey Anderson Work Phone: [facility] 06-22-2023 07:56-0400 Systolic blood pressure 120 mm[Hg] Dr. Chauncey Anderson Work Phone: [facility] 03-19-2023 15:41-0500 Body height 157.[address] Chauncey Anderson Work Phone: [facility] 03-19-2023 15:41-0500 Body mass index (BMI) [Ratio] 34 kg/m2 Dr. Chauncey Anderson Work Phone: [facility] 03-19-2023 15:41-0500 Body temperature 98 [degF] Dr. Chauncey Anderson Work Phone: [facility] 03-19-2023 15:41-0500 Body weight 84.[address] Chauncey Anderson Work Phone: [facility] 03-19-2023 15:41-0500 Diastolic blood pressure 70 mm[Hg] Dr. Chauncey Anderson Work Phone: [facility] 03-19-2023 15:41-0500 Heart rate 89 /min Dr. Chauncey Anderson Work Phone: [facility] 03-19-2023 15:41-0500 Respiratory rate 17 /min Dr. Chauncey Anderson Work Phone: [facility] 03-19-2023 15:41-0500 SaO2% (BldA) [Mass fraction] 95 % Dr. Chauncey Anderson Work Phone: [facility] 03-19-2023 15:41-0500 Systolic blood pressure 140 mm[Hg] Dr. Chauncey Anderson Work Phone: [facility] 02-17-2023 08:01-0500 Body mass index (BMI) [Ratio] 34.4 kg/m2 Dr. Chauncey Anderson Work Phone: [facility] 02-17-2023 08:01-0500 Body temperature 98 [degF] Dr. Chauncey Anderson Work Phone: [facility] 02-17-2023 08:01-0500 Body weight 85.[address] Chauncey Anderson Work Phone: [facility] 02-17-2023 08:01-0500 Diastolic blood pressure 80 mm[Hg] Dr. Chauncey Anderson Work Phone: [facility] 02-17-2023 08:01-0500 Heart rate 76 /min Dr. Chauncey Anderson Work Phone: [facility] 02-17-2023 08:01-0500 Respiratory rate 17 /min Dr. Chauncey Anderson Work Phone: [facility] 02-17-2023 08:01-0500 SaO2% (BldA) [Mass fraction] 97 % Dr. Chauncey Anderson Work Phone: [facility] 02-17-2023 08:01-0500 Systolic blood pressure 138 mm[Hg] Dr. Chauncey Anderson Work Phone: [facility] 10-13-2022 08:54-0400 Body height 157.[address] Chauncey Anderson Work Phone: [facility] 10-13-2022 08:54-0400 Body mass index (BMI) [Ratio] 34.4 kg/m2 Dr. Chauncey Anderson Work Phone: [facility] 10-13-2022 08:54-0400 Body temperature 97.8 [degF] Dr. Chauncey Anderson Work Phone: [facility] 10-13-2022 08:54-0400 Body weight 85.[address] Chauncey Anderson Work Phone: [facility] 10-13-2022 08:54-0400 Diastolic blood pressure 78 mm[Hg] Dr. Chauncey Anderson Work Phone: [facility] 10-13-2022 08:54-0400 Heart rate 78 /min Dr. Chauncey Anderson Work Phone: [facility] 10-13-2022 08:54-0400 Respiratory rate 16 /min Dr. Chauncey Anderson Work Phone: [facility] 10-13-2022 08:54-0400 SaO2% (BldA) [Mass fraction] 96 % Dr. Chauncey Anderson Work Phone: [facility] 10-13-2022 08:54-0400 Systolic blood pressure 120 mm[Hg] Dr. Chauncey Anderson Work Phone: [facility] Encounters Encounter Date Encounter Type Care Provider Facility Start: 11-10-2024 gretel Anderson Facility: [facility] Start: 08-29-2024 End: 08-29-[address] Jules Payne MD -[facility] Work Phone: Start: 08-29-2024 End: 08-29-[address] Chauncey Anderson DO Work Phone: -[facility] Start: 07-26-2024 ambulatory Chauncey Anderson Facility: [facility] Start: 07-22-2024 Registered Recurring Oralia DUBOIS -Occupational Therapy Work Phone: Start: 07-22-2024 ambulatory Chauncey Anderson Facility: [facility] Start: 05-23-2024 End: 05-23-[address] Chauncey Anderson DO -[facility] Work Phone: Start: 05-23-2024 End: 05-23-[address] Chauncey Anderson DO Work Phone: [facility] Work Phone: Start: 05-05-2024 End: 05-05-[address] Chauncey Anderson DO Work Phone: [facility] Work Phone: Start: 05-05-2024 End: 05-05-[address] Chauncey Anderson DO -Outpatient Breast Imaging Work Phone: Start: 05-05-2024 End: 05-05-2024 ambulatory Chauncey Anderson Facility:[facility] Start: 05-03-2024 Non-patient / Non-visit Dr. Joanne Ackerman MD -[facility] Work Phone: Start: 05-03-2024 End: 05-03-[address] Chauncey Anderson DO Work Phone: [facility] Work Phone: Start: 05-03-2024 End: 05-03-[address] Chauncey Anderson DO -Pulmonary Services/Neurology Work Phone: Start: 05-03-2024 End: 05-03-2024 ambulatory Chauncey Anderson Facility:[facility] Start: 04-29-2024 End: 04-29-[address] Chauncey Anderson DO Work Phone: [facility] Work Phone: Start: 04-29-2024 End: 04-29-[address] Chauncey Anderson DO -[facility] Work Phone: Start: 04-29-2024 End: 04-29-2024 ambulatory Chauncey Monica Facility:[facility] Start: 04-13-2024 End: 04-22-[address] Chauncey Anderson DO -[facility] Work Phone: Start: 04-13-2024 End: 04-22-2024 ambulatory [facility] Facility:[facility] Start: 03-03-2024 End: 03-03-[address] Jules Payne MD -[facility] Work Phone: Start: 03-03-2024 End: 03-03-2024 ambulatory Chauncey [facility] Facility:[facility] [place] [place] Start: 02-23-2024 End: 02-23-[address] Jules Payne MD -[facility] Work Phone: Start: 02-23-2024 End: 02-23-2024 ambulatory [facility] Facility:[facility] Start: 12-21-2023 End: 12-21-2023 ambulatory [facility] Facility:[facility] [place] [place] Start: 12-04-2023 End: 12-04-2023 ambulatory [facility] Facility:[facility] Start: 11-30-2023 End: 11-30-2023 ambulatory [facility] Facility:[facility] Start: 06-29-2023 End: 06-29-[address] Chauncey Anderson Work Phone: [facility] Work Phone: Start: 06-29-2023 End: 06-29-[address] Chauncey Anderson Work Phone: [facility] Work Phone: Start: 06-22-2023 End: 06-22-[address] Chauncey Anderson Work Phone: [facility] Work Phone: Start: 03-31-2023 End: 03-31-[address] Chauncey Anderson Work Phone: [facility] Work Phone: Start: 03-31-2023 End: 03-31-[address] Chauncey Anderson Work Phone: [facility] Work Phone: Start: 03-19-2023 End: 03-19-[address] Chauncey Anderson Work Phone: [facility] Work Phone: Start: 02-17-2023 End: 02-17-[address] Chauncey Anderson Work Phone: [facility] Neurology Work Phone: Start: 12-10-2022 Non-patient / Non-visit Dr. Mignon Anderson Work Phone: [facility] Start: 12-10-2022 End: 12-10-[address] Chauncey [facility] Start: 12-02-2022 Non-patient / Non-visit Dr. Mignon Anderson Work Phone: [facility] Start: 12-02-2022 End: 12-02-[address] Chauncey Anderson Work Phone: [facility] Work Phone: Start: 12-02-2022 End: 12-02-[address] [facility] Anderson [facility] Work [facility] Start: 11-27-2022 End: 11-27-[address] Chauncey Anderson Work Phone: [facility]-Physical Therapy Work Phone: Start: 10-17-[address] Chauncey Anderson Work Phone: [facility]-Physical Therapy Work Phone: Start: 10-14-2022 End: 10-14-[address] Chauncey Anderson Work Phone: [facility] Work Phone: Start: 10-14-2022 End: 10-14-[address] Chauncey Anderson Work Phone: [facility], [place] Work Phone: Start: 10-13-2022 End: 10-13-[address] Chauncey Anderson Work Phone: [facility] Neurology Work Phone: Start: 09-11-2022 End: 09-11-[address] Chauncey Anderson Work Phone: [facility] Work Phone: Start: 09-04-2022 End: 09-04-[address] [facility] Work Phone: Start: 09-04-2022 End: 09-04-2022 Patient encounter procedure [facility] Work Phone: Start: 06-17-2022 Transcribe Orders Chauncey Landa DO Work Phone: [facility] Comment on above: Paresthesia (Primary Dx) Start: 04-02-2022 End: 04-02-[address] [facility] Work Phone: Start: 04-02-2022 End: 04-02-2022 Patient encounter procedure [facility] Start: 03-19-2022 End: 03-19-[address] [facility] Work Phone: Start: 03-19-2022 End: 03-19-2022 Patient encounter procedure [facility]-Outpatient Bone Densitometry Start: 02-10-2022 End: 02-10-[address] [facility] Work Phone: Start: 02-10-2022 End: 02-10-2022 Discharged Recurring [facility]-Physical Therapy Start: 11-16-2021 End: 11-16-2021 Patient encounter procedure [facility] Procedures Date Procedure Procedure Detail Performing Clinician Start: 05-05-2024 Screening mammography Yoshi Anderson DO Work Phone: Start: 02-23-2024 MRI of cervical spine Yoshi Anderson DO Work Phone: Start: 06-29-2023 MRI of lumbar spine Dr. Chauncey Anderson Work Phone: Start: 09-11-2022 Ultrasonography of t hyroid and parathyroid Dr. Chauncey Anderson Work Phone: Start: 04-02-2022 MRI of cervical spine Start: 03-19-2022 Dual energy X-ray absorptiometry Start: 03-19-2022 Screening mammography Plan of Treatment Date Care Activity Detail Author Start: 10-24-2022 Influenza vaccination Sequential Influenza Vaccine (Season Ended) [facility] Start: 08-22-2022 End: 08-22-2022 Patient encounter procedure 08/22/2022 10:10 AM EDT Office Visit [facility] [address] [place] [address] [address] [place] [address] Xu Alvarez MD [address] [place] [address] [place] [address] [facility] Start: 2021 Fall risk assessment Falls Risk Assessment [facility] Start: 2021 Pneumococcal Vaccine: Age 65+ (1 - PCV) Pneumococcal Vaccine: Age 65+ (1 - PCV) [facility] Start: 2006 Administration of herpes zoster vaccine Zoster Vaccines (1 of 2) [facility] Start: 1974 Hepatitis C screening Hepatitis C Screening [facility] Start: 10-27-1971 HIV screening HIV Screening [facility] Start: 1968 Depression screening using PHQ-9 (Patient Health Questionnaire 9) score Depression Screening (PHQ-2/9) [facility] Start: 10-27-1959 History and physical examination, annual for health maintenance Wellness Visit [facility] Start: 04-25-1957 COVID-19 Vaccine (#1) COVID-19 Vaccine (#1) [facility] Start: 1956 Screening for malignant neoplasm of colon [facility] Start: 1956 Screening for osteoporosis Dexa Scan [facility] Start: 1956 Tetanus vaccination Tetanus: Every 10yrs [facility] Immunizations Immunization Date Immunization Notes Care Provider Clinton ceja 11-24-2015 Influenza virus vaccine W [facility] Payers Date Payer Category Payer Self-pay [id number] 2023 Self-pay [id number] 2021 Medicare MEDICARE MEDICAR E PART A & B [id number] 2021-Present [phone] CGS [id number] PART A CLAIMS [address] [address] [place] [address] [id number] 2021 Unknown MMO [facility]ICAL [facility] TRADITIONAL [id number] 2021-Present [phone] [address] [place] [address] [id number] 2021 Medicare [id number] 2015 Unknown [id number] Unknown [id number] Unknown [id number] Unknown [id number] Unknown [id number] Unknown [id number] Unknown [id number] Unknown [id number] Unknown [id number] Unknown [id number] Unknown [id number] Unknown [id number] Unknown [id number] Unknown [id number] Unknown [id number] Unknown [id number] Social History Date Type Detail Facility Start: 02-29-2020 End: 03-19-2023 Tobacco smoking status VTIS Unknown if ever smoked [facility] Start: 1955 Sex Assigned At Female W [facility] Start: 1955 Sex Assigned At Not on file [facility] Gender identity Not on file [facility] Start: 03-19-2023 Tobacco smoking stat us VTIS Never smoked tobacco (finding) [facility] Start: 05-11-2024 End: 05-24-2024 Sex Female (finding) [facility] Evaluation note 03-03-2024 Note Date & Type Note Facility 03-03-2024 Evaluation note Diagnosis Onset Date Resolution Anxiety acute March 03, 2 025 8:22am Depression acute March 03 025 8:22am Fibromyalgia acute March 03, 2024 8:22am Paresthesias acute March 03, 2024 8:22am Low back pain chronic February 8:22am Neck pain chronic March 03 025 8:22am [facility] Work Phone: Procedure note 12-02-2022 Note Date & Type Note Facility 12-02-2022 Procedure note [facility] Evaluation note Note Date & Type Note Facility Evaluation note No assessment information availa ble [facility] Work Phone: Evaluation note Note Date & Type Note Facility Evaluation note Diagnosis Paresthesia- Primary Disturbance of skin sensation documented in this encounter [facility] Evaluation note Note Date & Type Note Facility Evaluation note Diagnosis Onset Date Paresthesias acute Low back pain chronic Neck pain chronic [facility] Work Phone: Evaluation note Note Date & Type Note Facility Evaluation note Diagnosis Onset Date Bilateral carpal tunnel syndrome acute Fatigue acute Paresthesias acute Low back pain chronic Neck pain chronic Hypersomnia acute Paresthesias acute [facility] Work Phone: Evaluation note Note Date & Type Note Facility Evaluation note Diagnosis Onset Date Hypersomnia acute Paresthesias acute Left lumbar radiculopathy [place] Low back pain chronic Neck pain chronic [facility] Work Phone: Reason for referral (narrative) Note Date & Type Note Facility Reason for referral (narrative) No reason for referral information available [facility] Work Phone: Summary Purpose Family History No Family History Records FoundNo Family History Records Found Advance Directives No Advanced Directives Records Found Advance Directive Response Recorded Date/ Time Advance Directives No December 2:53pm Living Will No January 06 016 2:53pm Power of Technical Sales Director No January 07, 2016 2:53pm Advance Directive Response Recorded Date/ Time Advance Directives No December 3:53pm Living Will No January 06, 2 016 3:53pm Power of Technical Sales Director No January 07, 2016 3:53pm Advance Directive Response Recorded Date/ Time Advance Directives No December 3:53pm Chief Complaint and Reason for Visit Chief Complaint SPINAL STENOSIS, SPO NDYLOLISTHESIS/RX HERE Chief Complaint SPINAL STENOSIS, SPO NDYLOLISTHESIS/RX HERE SCREENING/OSTEO CERVICAL SPONDYLOSIS/SPONDYLOLISTHESIS Chief Complaint ENLARGED LEFT OXYGEN 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 TECHNICIAN IOR NODES Consult EORDER CERVIAL SPONDYLOSIS RX HERE Reason for Visit Paresthesias Low back pain Neck pain Chief Complaint ENLARGED LEFT OXYGEN THERAPY TECHNICIAN IOR NODES Consult EORDER CERVIAL SPONDYLOSIS RX HERE LUE PARESTHESIA LUE PARESTHESIA Reason for Visit Paresthesias Low back pain Neck pain Chief Complaint PARASTHESIA OF SKIN, LOW BACK PAIN PARASTHESIA OF SKIN, LOW BACK PAIN 4 M FU Skin biopsy HYPERSOMNIA Reason for Visit Bilateral carpal saul brock syndrome Fatigue Paresthesias Low back pain Neck pain Hypersomnia Paresthesias Chief Complaint Skin biopsy HYPERSOMNIA 4 M FU LBP Reason for Visit Hypersomnia Paresthesias Left lumbar radiculopathy Low back pain Neck pain Chief Complaint Admit Date NECK PAIN February 23, 2024 10:54am 3 M FU March 03, 2024 8: 22am OBESITY April 13, 2024 3:03pm PALPITATIONS May 03, 2024 9:5 4am PALPITATIONS May 03, 2024 10: 07am SCREENING May 05, 2024 12: 39pm Reason for Visit Admit Date Anxiety March 03, 2024 8: 22am Depression March 03, 2024 8: 22am Fibromyalgia March 03, 2024 8: 22am Paresthesias March 03, 2024 8: 22am Low back pain March 03, 2024 8: 22am Neck pain March 03, 2024 8: 22am Chief Complaint Admit Date NECK PAIN February 23, 2024 10:54am 3 M FU March 03, 2024 8: 22am OBESITY April 13, 2024 3:03pm PALPITATIONS May 03, 2024 9:5 4am PALPITATIONS May 03, 2024 10: 07am SCREENING May 05, 2024 12: 39pm OBESITY May 23, 2024 12: 53pm Chief Complaint Admit Date PALPITATIONS May 03, 2024 9:5 4am PALPITATIONS May 03, 2024 10: 07am SCREENING May 05, 2024 12: 39pm OBESITY May 23, 2024 12: 53pm SPLINT - EXT TENDON L INDEX FINGER/RX TO BE FAXED July 22, 2024 9:20am 6 M FU August 29, 2024 8:14a m Reason for Referral Specialty Diagnoses / Procedures Referred By Contac t Referred To Contact Neurology Diagnoses Paresthesia Chauncey Anderson, [address] [place] [address] Referral ID Status Reason Start Date Expiration Date V isits Requested Visits Authorized [id number] Authorized 06/17/2022 06/17/2023 1 1 Additional Source Comments INFORMATION SOURCE (unrecogn ized section and content) DATE CREATED AUTHOR 03/31/2019 [facility] DATE CREATED AUTHOR AUTHOR'S ORGANIZ ATION 11/07/2024 [facility] Goals (unrecognized section and content) Goals may be documented in a n alternate sectionGoals may be documented in an alternate sectionGoals may be documented in an alternate sectionGoals may be documented in an alternate sectionGoals may be documented in an alternate sectionGoals may be documented in an alternate sectionGoals may be documented in an alternate sectionGoals may be documented in an alternate sectionGoals may be documented in an alternate sectionGoals may be documented in an alternate sectionGoals may be documented in an alternate sectionGoals may be documented in an alternate sectionGoals may be documented in an alternate section Care Teams (unrecognized sec tion and content) Team Status: Active Member Role Status Dates Dr. Chauncey Anderson , DO Family Provider Active Dr. Chauncey Anderson , DO Primary Care Provider Active Team Status: Inactive Member Role Status Dates Dr. Chauncey Anderson , DO Primary Care Provider Active Dr. Bijan Garcia , DO Attending Provider, Referring Mahesh ni Active Team Status: Inactive Member Role Status Dates Dr. Chauncey Anderson , DO Primary Care Prov ider, Attending Provider, Referring Provider Active Team Status: Active Member Role Status Dates Dr. Chauncey Anderson , DO Primary Care Provider Active Dr. Bijan Vasquez , DO Attending Provider, Referring Provider Active Team Status: Inactive Member Role Status Dates Dr. Chauncey Anderson DO Primary Care Provider Active Dr. Bijan Vasquez , DO Attending Provider, Referring Provider Active Team Status: Inactive Member Role Status Dates Dr. Chauncey Anderson DO Primary Care Provider Active FRANSISCO Darden Attending Provider, Referring Prov ider Active Team Status: Inactive Member Role Status Dates Dr. Chauncey Anderson DO Primary Care Provider, Referrin g Provider Active Dr. Jules Payne MD Attending Provider Active Team Status: Inactive Member Role Status Dates Dr. Chauncey Anderson DO Primary Care Provider Active Dr. Jules Payne MD Attending Provider, Referring Provider Active Team Status: Active Member Role Status Dates Dr. Chauncey Anderson DO Primary Care Provider Active Dr. Carolyn Adame MD Attending Provider Active Dr. Chiki Jarrell DO Referring Provider Active Team Status: Active Member Role Status Dates Dr. Chauncey Anderson DO Primary Care Provider Active Dr. Jules Payne MD Referring Provider, Other Pro vider Active Dr. Kit Fay MD Attending Provider Active Team Status: Inactive Member Role Status Dates Dr. Chauncey Anderson DO Primary Care Provider Active Dr. Carolyn Adame MD Attending Provider Active Dr. Chiki Jarrell DO Referring Provider Active Team Status: Active Member Role Status Dates Dr. Chauncey Anderson DO Primary Care Provider Active Dr. Jules Payne MD Referring Provider, Other Pro vider Active Dr. Leo Pantoja MD Attending Provider Active Team Status: Inactive Member Role Status Dates Dr. Chauncey Anderson DO Primary Care Provider Active Dr. Jules Payne MD Attending Provider Active Team Status: Active Member Role Status Dates Dr. Chauncey Anderson DO Primary Care Provider Active Team Status: Inactive Member Role Status Dates Dr. Chauncey Anderson DO Primary Care Provider Active Start: February 23, 2024 End: February 23, 2024 Dr. Jules Payne MD Attending Provider Active Start: February 23, 2024 End: February 23, 2024 Dr. Jules Payne MD Referring Provider Active Start: February 23, 2024 End: February 23, 2024 Team Status: Inactive Member Role Status Dates Dr. Chauncey Anderson DO Primary Care Provider Active Start: March 03, 2024 End: March 03, 2024 Dr. Chauncey Anderson DO Referring Provider Active Start: March 03, 2024 End: March 03, 2024 Dr. Jules Payne MD Attending Provider Active Start: March 03, 2024 End: March 03, 2024 Team Status: Inactive Member Role Status Dates Dr. Chauncey Anderson DO Primary Care Provider Active Start: April 13, 2024 End: April 22, 2024 Dr. Chauncey Anderson DO Attending Provider Active Start: April 13, 2024 End: April 22, 2024 Dr. Chauncey Anderson DO Referring Provider Active Start: April 13, 2024 End: April 22, 2024 Team Status: Inactive Member Role Status Dates Dr. Chauncey Anderson DO Primary Care Provider Active Start: April 29, 2024 End: April 29, 2024 Dr. Chauncey Anderson DO Attending Provider Active Start: April 29, 2024 End: April 29, 2024 Dr. Chauncey Anderson DO Referring Provider Active Start: April 29, 2024 End: April 29, 2024 Team Status: Active Member Role Status Dates Dr. Chauncey Anderson DO Primary Care Provider Active Start: May 03, 2024 Dr. Chauncey Anderson DO Attending Provider Active Start: May 03, 2024 Dr. Chauncey Anderson DO Referring Provider Active Start: May 03, 2024 Team Status: Active Member Role Status Dates Dr. Chauncey Anderson DO Primary Care Provider Active Start: May 03, 2024 Dr. Chauncey Anderson DO Referring Provider Active Start: May 03, 2024 Dr. Jaky Ackerman MD Attending Provider Activ e Start: May 03, 2024 Team Status: Active Member Role Status Dates Dr. Chauncey Anderson DO Primary Care Provider Active Start: May 05, 2024 Dr. Chauncey Anderson DO Attending Provider Active Start: May 05, 2024 Dr. Chauncey Anderson DO Referring Provider Active Start: May 05, 2024 Team Status: Inactive Member Role Status Dates Dr. Chauncey Anderson DO Primary Care Provider Active Start: May 03, 2024 End: May 03, 2024 Dr. Chauncey Anderson DO Attending Provider Active Start: May 03, 2024 End: May 03, 2024 Dr. Chauncey Anderson DO Referring Provider Active Start: May 03, 2024 End: May 03, 2024 Team Status: Inactive Member Role Status Dates Dr. Chauncey Anderson DO Primary Care Provider Active Start: May 05, 2024 End: May 05, 2024 Dr. Chauncey Anderson DO Attending Provider Active Start: May 05, 2024 End: May 05, 2024 Dr. Chauncey Anderson DO Referring Provider Active Start: May 05, 2024 End: May 05, 2024 Team Status: Inactive Member Role Status Dates Dr. Chauncey Anderson DO Primary Care Provider Active Start: May 23, 2024 End: May 23, 2024 Dr. Chauncey Anderson DO Attending Provider Active Start: May 23, 2024 End: May 23, 2024 Dr. Chauncey Anderson DO Referring Provider Active Start: May 23, 2024 End: May 23, 2024 Team Status: Active Member Role/Relationship Status Dates Dr. Chauncey Anderson DO Primary Care Provider Active Team Status: Inactive Member Role/Relationship Status Dates Dr. Chauncey Anderson DO Primary Care Provider Active Start: May 03, 2024 End: May 03, 2024 Dr. Chauncey Anderson DO Attending Provider Active Start: May 03, 2024 End: May 03, 2024 Dr. Chauncey Anderson DO Referring Provider Active Start: May 03, 2024 End: May 03, 2024 Team Status: Active Member Role/Relationship Status Dates Dr. Chauncey Anderson DO Primary Care Provider Active Start: May 03, 2024 Dr. Chauncey Anderson DO Referring Provider Active Start: May 03, 2024 Dr. Jaky Ackerman MD Attending Provider Activ e Start: May 03, 2024 Team Status: Inactive Member Role/Relationship Status Dates Dr. Chauncey Anderson DO Primary Care Provider Active Start: May 05, 2024 End: May 05, 2024 Dr. Chauncey Anderson DO Attending Provider Active Start: May 05, 2024 End: May 05, 2024 Dr. Chauncey Anderson DO Referring Provider Active Start: May 05, 2024 End: May 05, 2024 Team Status: Inactive Member Role/Relationship Status Dates Dr. Chauncey Anderson DO Primary Care Provider Active Start: May 23, 2024 End: May 23, 2024 Dr. Chauncey Anderson DO Attending Provider Active Start: May 23, 2024 End: May 23, 2024 Dr. Chauncey Anderson DO Referring Provider Active Start: May 23, 2024 End: May 23, 2024 Team Status: Active Member Role/Relationship Status Dates Dr. Chauncey Anderson DO Primary Care Provider Active Start: July 22, 2024 SILVINO Greer Attending Provider Active St art: July 22, 2024 SILVINO Greer Referring Provider Active St art: July 22, 2024 Team Status: Inactive Member Role/Relationship Status Dates Dr. Chauncey Anderson DO Primary Care Provider Active Start: August 29, 2024 End: August 29, 2024 Dr. Chauncey Anderson DO Referring Provider Active Start: August 29, 2024 End: August 29, 2024 Dr. Jules Payne MD Attending Provider Active Start: August 29, 2024 End: August 29, 2024 FOR RECORDS PERTAINING TO PATIENTS WHO ARE OR HAVE BEEN ENROLLED IN A CHEMICAL DEPENDENCY/SUBSTANCEABUSE PROGRAM, SOME INFORMATION MAY BE OMITTED. This clinical summary was aggregated from multiple sources. Caution should be exercised in using it in the provision of clinical care. This summary normalizes information from multiple sources, and as a consequence, information in this document may materially change the coding, format and clinical context of patient data. In addition, data may be omitted in some cases. CLINICAL DECISIONS SHOULD BE BASED ON THE PRIMARY CLINICAL RECORDS. [email or web address] provides no warranty or guarantee of the accuracy or completeness of information in this document.
== END | disposition home or self-care (01) ==
LOC: OPMRI 07:04
PROVIDERS: PCP Family Medicine; Referring Provider Family Medicine; Visit Provider Family Medicine
DX: R42 Dizziness and giddiness (principal); R51.9 Headache, unspecified
CPT/HCPCS: 70553; A9575

== ENCOUNTER → 2024-12-13 | Outpatient (CLI) | payer MEDICARE, OTHER, SELFPAY ==
--- OUTSIDE RECORDS SUMMARY | 2024-12-13 07:31 | XMS RPT_ITS | CCD ---
Author Organization [facility] Care Team Providers Care Cloud Systems Architect Name Role Phone Unavailable Primary Care Provider [...] Dr. Chauncey Anderson DO Attending Provider [phone] Tyron LERNER, Dr. Starkey Attending Provider Monica HSU, Dr. Grossman Primary Care Provider Monica HSU, Dr. Grossman Attending Provider [phone] Monica HSU, Dr. Grossman Referring Provider [phone] Oralia Beard Attending Provider Oralia Beard Referring Provider [phone] Kerry LERNER, Dr. Vicente Attending Provider Monica HSU, Dr. Grossman Primary Care Physician Oralia Beard Attending Physician [phone] Monica HSU, Dr. Grossman Referring Provider [phone] Jules Payne MD Attending Physician Monica HSU, Dr. Grossman Attending Physician Monica HSU, Dr. Grossman Primary Care Physician MonicaChauncey Primary Care Unavailable Monica, Chauncey Referring Unavailable Jules Payne Attending Unavailable Monica, Chauncey Attending Unavailable Monica, Chauncey Primary Care Unavailable Monica, Chauncey Attending Unavailable Monica, Chauncey Primary Care Unavailable Monica, Chauncey Referring Unavailable Monica, Chauncey Primary Care Unavailable Monica, Chauncey Referring Unavailable Monica, Chauncey Attending Unavailable Monica, Chauncey Attending Unavailable Monica, Chauncey Primary Care Unavailable Monica, Chauncey Referring Unavailable Monica, Chauncey Attending Unavailable Monica, Chauncey Primary Care Unavailable Monica, Chauncey Referring Unavailable Monica, Chauncey Primary Care Unavailable MonicaChauncey Referring Unavailable Jules Payne Attending Unavailable Monica, Chauncey Primary Care Unavailable Monica, Chauncey Referring Unavailable Jaky Ackerman Attending Unavailabl e Jules Payne Attending Unavailable Monica, Chauncey Primary Care Unavailable Monica, Chauncey Referring Unavailable Monica, Chauncey Primary Care Unavailable Jules Payne Attending Unavailable Jules Payne Referring Unavailable Monica, Chauncey Attending Unavailable Monica, Chauncey Primary Care Unavailable Chauncey Anderson Referring Unavailable Chauncey Anderson Attending Unavailable Chauncey Anderson Referring Unavailable Chauncey Anderson Primary Care Unavailable Chauncey Anderson Attending Unavailable Chauncey Anderson Referring Unavailable Chauncey Anderson Primary Care Unavailable Chauncey Anderson Primary Care Unavailable Oralia Jones Referring Unavailable Oralia Jones Attending Unavailable Medications Current Medications Medication Drug Class(es) Dates Sig (Normalized) Sig (Original) acetaminophen 500 mg oral tablet (11 sources) Start: 10-13-2022 take 2 tablets by mouth every eight hours as needed baclofen 10 mg oral tablet (20 sources) gamma-Aminobutyri c Acid-ergic Agonist Start: 03-03-2024 End: 08-29-2024 take 1 tablet by mouth twice daily as needed for pain Start: 02-17-2023 End: 03-03-2024 take 5 mg [...] 13, 2022 12:00am February 17, 2023 9:05am cholecalciferol 0.025 mg oral tablet (15 sources) Vitamin D Start: 12-18-2015 take 1 tablet by mouth once daily clobetasol propionate 0.5 mg/ml topical solution (11 sources) Corticosteroid Start: 10-13-2022 DIM-PLUS (4 sources) Start: 10-13-2022 DIM-PLUS Active PO DAILY October 12, 2022 11:00pm Start: 10-13-2022 DIM-PLUS Activ e PO DAILY October 13, 2022 12:00am DIM-PLUS tablet (7 sources) Start: 10-13-2022 Start: 10-13-2022 DIM-PLUS table t Active PO DAILY October 13, 2022 12:00am krill oil (11 sources) Start: 10-13-2022 Start: 10-13-2022 Eyxjh-Ta-6-Dha -Cvm-Prlwlwe-Pvx (Krill Oil) 496-888-06-75 mg capsule Active 1 NMA PO DAILY October 13, 2022 12:00am Start: 10-13-2022 take 1 capsule by mouth once daily Bsyoo-Kr-4-Xqs-Oeq-Ggjzakf-Ast (Krill Oi l) 429-282-77-75 mg capsule Active 1 CAP PO DAILY October 12, 2022 11:00pm Start: 10-13-2022 take 1 capsule by mouth once daily Nbrjg-Id-1-Bxg-Muk-Ewqwnyg-Ast (Krill Oi l) 874-502-32-75 mg capsule Active 1 CAP PO DAILY October 13, 2022 12:00am Lactobacillus Combination No .4 (Senior Probiotic) 15 billion cell capsule (11 sources) Start: 10-13-2022 Start: 10-13-2022 Lactobacillus Combination No.4 (Senior Probiotic) 15 billion cell capsule Active 55991 NMA PO DAILY October 13, 2022 12:00am administer with a meal 16 strain probiotic i cap daily Start: 10-13-2022 Lactobacillus Combination No.4 (Senior Probiotic) 15 billion cell capsule Active 14823 MMU CELLS PO DAILY October 12, 2022 11:00pm administer with a meal 16 strain probiotic i cap daily Start: 10-13-2022 Lactobacillus Combination No.4 (Senior Probiotic) 15 billion cell capsule Active 01873 MMU CELLS PO DAILY October 13, 2022 12:00am administer with a meal 16 strain probiotic i cap daily loratadine 10 mg oral tablet (15 sources) Start: 12-18-2015 take 1 tablet by corbin th once daily Multivitamin (Multiple Vitam ins) tablet (11 sources) Start: 10-13-2022 Start: 10-13-2022 Multivitamin ( Multiple Vitamins) tablet [...] every other day pregabalin 50 mg oral capsul e (11 sources) Start: 10-13-2022 take 1 capsule by mo uth three times daily red yeast rice 600 mg oral capsule (11 sources) Start: 10-13-2022 take 1 capsule by mo uth once daily Start: 10-13-2022 take 1200 mg by mout [...] 12:00am take one tablet once daily resveratroll-Quercetin table t (7 sources) Start: 10-13-2022 take 1 tablet by mouth once da gabriel Start: 10-13-2022 take 1 tablet by corbin th once daily resveratroll-Quercetin tablet Active PO DAILY October 13, 2022 12:00am take one tablet once daily Thyroid (Pork) (Hospital Manager Thyroid) 30 mg tablet (7 sources) Start: 02-17-2023 take 1 tablet by mouth once daily Thyroid (Pork) (Hospital Manager Thyroid) 30 mg tablet Active 30 mg PO DAILY February 17, 2023 1:00am Start: 02-17-2023 take 1 tablet by mouth once da gabriel Thyroid (Pork) (Hospital Manager Thyroid) 30 mg tablet Active 30 MG PO DAILY February 17, 2023 1:00am Start: 02-17-2023 take 1 tablet by mouth once da gabrile Thyroid (Pork) (Hospital Manager Thyroid) 30 mg tablet Active 30 MG PO DAILY February 17, 2023 12:00am thyroid (snf) 30 mg oral tablet (4 sources) Start: 10-13-2022 End: 02-17-2023 take 1 tablet by mouth once daily Vitamin B Complex-Folic Acid (8 sources) Start: 12-18-2015 take 0.4 mg by mouth once daily Vitamin B Complex-Folic Acid Active 0.4 MG PO DAILY December 18, 2015 12:00am Start: 12-18-2015 take 0.4 mg by mouth once daily Vitamin B Complex-Folic Acid Active 0.4 MG PO DAILY December 17, 2015 11:00pm Vitamin B Complex-Folic Acid 0.4 MG tablet (7 sources) Start: 12-18-2015 take 1 tablet by corbin th once daily Start: 12-18-2015 take 1 tablet by corbin th once daily Vitamin B Complex-Folic Acid 0.4 MG tablet Active 0.4 mg PO DAILY December 18, 2015 12:00am Completed/Discontinued Medications Medication Drug Class(es) Dates Sig (Normalized) Sig (Original) acetaminophen 325 mg / oxyCODONE hydrochloride 5 mg oral tablet (15 sources) Opioid Agonist Start: 01-09-2016 End: 02-29-2020 [...] 2020 4:42pm aspirin 325 mg oral tablet (15 sources) Platelet Aggregation Inhibitor, Nonsteroidal Anti-inflammatory Drug Start: 01-09-2016 End: 10-13-2022 take 1 tablet by mouth twice daily at mealtime Aspirin 325 MG tablet Discontinued 325 mg PO TWICE DAILY WITH MEALS 60 0 January 09, 2016 1:00am October 13, 2022 9:20am celecoxib 100 mg oral capsule (20 sources) Nonsteroidal Anti-inflammatory Drug Start: 03-03-2024 End: 08-29-2024 take 1 capsule by mouth once daily as needed for pain Celecoxib 100 mg capsule Discontinued 100 mg PO daily as needed for pain March 03, 2024 9:59am August 29, 2024 9:06am Start: 12-18-2015 End: 03-03-2024 take 1 capsule by mouth once daily Celecoxib 200 MG capsule Discontinued 200 mg PO DAILY December 18, 2015 12:00am March 03, 2024 9:54am DULoxetine 60 mg delayed release oral capsule (20 sources) Serotonin and Norepinephrine Reuptake Inhibitor Start: 12-21-2023 End: 03-03-2024 take 1 capsule by mouth once daily Duloxetine 30 mg capsule,delayed release(DR/EC) Discontinued 30 mg PO DAILY 7 December 21, 2023 12:00am March 03, 2024 9:54am Start: 12-21-2023 End: 08-29-2024 take 1 capsule by mouth once daily Duloxetine 60 mg capsule,delayed release(DR/EC) Discontinued 60 mg PO DAILY 90 March 03, 2024 9:59am August 29, 2024 9:06am Garlic (15 sources) Non-Standardized Food Allergenic Extract Start: 12-18-2015 [...] 2015 11:00pm Magnesium Aspart,Citrate,Oxide 400 MG capsule (7 sources) Start: 12-18-2015 End: 10-13-2022 take 1 [...] 2015 11:00pm naproxen 500 mg oral tablet (15 sources) Nonsteroidal Anti-inflammatory Drug Start: 12-18-2015 End: 10-13-2022 take 1 tablet by mouth twice daily as needed for pain Naproxen 500 MG tablet Discontinued 500 mg PO TWICE DAILY NEEDED as needed for Pain December 18, 2015 12:00am October 13, 2022 9:20am nitrofurantoin, macrocrystals 25 mg / nitrofurantoin, monohydrate 75 mg oral capsule (7 sources) Nitrofuran Antibacterial Start: 08-22-2023 End: 08-27-2023 take 1 capsule by mouth every twelve hours at mealtime Nitrofurantoin Monohyd/M-Cryst (Macrobid) 100 mg capsule Discontinued 100 mg PO Q12H 10 5 0 August 22, 2023 12:00am August 26, 2023 12:00am August 27, 2023 12:05am must administer with a meal/food plant stanol mervin 450 mg oral capsule (15 sources) Start: 12-18-2015 End: 10-13-2022 take 1 capsule by mouth once daily Plant Stanol Mervin 450 MG capsule Discontinued 450 mg PO DAILY December 18, 2015 12:00am October 13, 2022 10:43am raNITIdine 300 mg oral tablet (15 sources) Histamine-2 Receptor Antagonist Start: 12-18-2015 take 300 mg by mouth once daily Ranitidine Hcl Active 300 MG PO DAILY December 17, 2015 11:00pm Start: 12-18-2015 End: 10-13-2022 take 1 tablet by mouth once daily Ranitidine Hcl 300 MG tablet Discontinued 300 mg PO DAILY December 18, 2015 12:00am October 13, 2022 9:20am Thyroid (Pork) ([place] Thyroid) 30 mg tablet (9 sources) Start: 10-13-2022 End: 02-17-2023 take 1 tablet by mouth once daily Thyroid (Pork) ([place] Thyroid) 30 mg tablet Discontinued 30 mg PO DAILY October 13, 2022 12:00am February 17, 2023 9:41am Start: 10-13-2022 End: 02-17-2023 take 1 tablet by mouth once daily Thyroid (Pork) ([place] Thyroid) 30 mg tablet Discontinued 30 MG PO DAILY October 13, 2022 12:00am February 17, 2023 9:41am Start: 10-13-2022 End: 02-17-2023 take 1 tablet by mouth once daily Thyroid (Pork) ([place] Thyroid) 30 mg tablet Discontinued 30 MG PO DAILY October 12, 2022 11:00pm February 17, 2023 8:41am Start: 10-13-2022 take 1 tablet by corbin th once daily Thyroid (Pork) ([place] Thyroid) 30 mg tablet Active 30 MG PO DAILY October 13, 2022 12:00am Problems Active Problems Problem Classification Problem Date Documented Da te Episodic/Chronic Anxiety disorders (13 sources) Anxiety; Translations: [Anxiety disorder, unspecified] 12-21-2023 Chronic Conditions associated with dizziness or vertigo (1 source) Dizziness and giddiness; Translations: [Dizziness and giddiness] Onset: 11-23-2024 Episodic Diabetes mellitus without complication (1 source) Impaired fasting glucose; Translations: [Impaired fasting glucose] Onset: 12-09-2024 Episodic Disorders of lipid metabolism (1 source) Hyperlipidemia, unspecified; Translations: [Hyperlipidemia, unspecified] Onset: 12-09-2024 Chronic Malaise and fatigue (11 sources) Fatigue; Translations: [Other fatigue] Onset: 12-09-2024 02-17-2023 Episodic Mood disorders (13 sources) Depressive disorder; Translations: [Depression] 12-21-2023 Chronic Osteoarthritis (11 sources) Arthritis; Translations: [Unspecified osteoarthritis, unspecified site] 10-13-2022 Chronic Other connective tissue disease (11 sources) Muscle pain; Translations: [Myalgia, unspecified site] 10-13-2022 Episodic Other connective tissue disease (13 sources) Fibromyalgia; Translations: [Fibromyalgia] 03-03-2024 Episodic Other nervous system disorders (7 sources) Carpal tunnel syndrome; Translations: [Carpal tunnel syndrome, bilateral upper limbs] 02-18-2023 Chronic Other nervous system disorders (1 source) Carpal tunnel syndrome, bilateral upper limbs; Translations: [Carpal tunnel syndrome] 02-17-2023 Chronic Other nervous system disorders (2 sources) Bilateral carpal tunnel syndrome; Translations: [Carpal tunnel syndrome, bilateral upper limbs] 02-18-2023 Chronic Other nervous system disorders (18 sources) Paresthesia; Translations: [Paresthesia of skin] 06-17-2022 Episodic Residual codes; unclassified (9 sources) Hypersomnia; Translations: [Hypersomnia, unspecified] 03-19-2023 Chronic Residual codes; unclassified (2 sources) Hypersomnia, unspecified; Translations: [Hypersomnia, unspecified] 03-19-2023 Chronic Thyroid disorders (2 sources) Hypothyroidism, unspecified; Translations: [Hypothyroidism, unspecified] Onset: 05-11-2024 Chronic Past or Other Problems Problem Classification Problem [...] Test Name Value Interpretation Reference Range Facility Magnetic resonance imaging r eportOrdered By: Shawn Kan on 11-11-2024 Study report [facility] Imaging Services [address] [place] [address] Brain W/WO Contrast MR#: [id number] Acct: [id number] Name: JAYLIN OLIVEROS Rep #: [id number] : 1955 F 69 From: Db Kan MD PCP: Dr. Chauncey Anderson, DO Status: REG CLI Study:Brain W/WO Contrast Date of Exam: 11/10/24 Exam# [id number] Ordering Dr: Chauncey Anderson DO PROCEDURE: MRI BRAIN W/WO CONTRAST 11/10/2024 REASON FOR EXAM: HEADACHES, DIZZINESS TECHNIQUE: Procedure Code: MRIBRWW Modality: MR Procedure: BRAIN W/WO CONTRAST Multiplanar and multisequential MRI of the brain was performed without and with IV gadolinium based contrast administration. CONTRAST: Clariscan VOLUME: 14 mL COMPARISON: None available. FINDINGS: Ventricular and sulcal size and configuration are within normal limits. No intracranial mass lesion or pathologic enhancement. No evidence of intracranial hemorrhage, extra-axial collection, or other significant abnormality. No regions of abnormal restricted diffusion or susceptibility. Few scattered small foci of T2 FLAIR hyperintensity in the supratentorial white matter, which are nonspecific but most likely reflect minimal leukoaraiosis. Preserved major vascular flow voids. Grossly unremarkable orbits. Well-aerated paranasal sinuses and bilateral mastoid air cells. MRI/Brain W/WO Contrast IMPRESSION: No acute intracranial abnormality. No specific cause for patient's symptoms. 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 These are also commonly seen with migraine headaches. Reading Location: [facility] CC: Dr. Chauncey Anderson DO ~ Trauma Counsellor: Signed [facility] Brain W/WO Contraston 2024 Brain W/WO Contrast [facility] Imaging Services [address] [place], [place] [id number] Brain W/WO Contrast MR#: [id number] Acct: [id number] Name: JAYLIN OLIVEROS Rep #: [id number] : 1955 F 69 From: Shawn Kan MD PCP: Dr. Chauncey Anderson DO Status: REG CLI Study: Brain W/WO Contrast Date of Exam: 11/10/24 Exam# [id number] Ordering Dr: Chauncey Anderson DO PROCEDURE: MRI BRAIN W/WO CONTRAST 11/10/2024 REASON FOR EXAM: HEADACHES, DIZZINESS TECHNIQUE: Procedure Code: MRIBRWW Modality: MR Procedure: BRAIN W/WO CONTRAST Multiplanar and multisequential MRI of the brain was performed without and with IV gadolinium based contrast administration. CONTRAST: Clariscan VOLUME: 14 mL COMPARISON: None available. FINDINGS: Ventricular and sulcal size and configuration are within normal limits. No intracranial mass lesion or pathologic enhancement. No evidence of intracranial hemorrhage, extra-axial collection, or other significant abnormality. No regions of abnormal restricted diffusion or susceptibility. Few scattered small foci of T2 FLAIR hyperintensity in the supratentorial white matter, which are nonspecific but most likely reflect minimal leukoaraiosis. Preserved major vascular flow voids. Grossly unremarkable orbits. Well-aerated paranasal sinuses and bilateral mastoid air cells. MRI/Brain W/WO Contrast IMPRESSION: No acute intracranial abnormality. No specific cause for patient's symptoms. 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 These are also commonly seen with migraine headaches. Reading Location: [facility] CC: Dr. Chauncey Anderson, Trauma Counsellor: Signed Normal [facility] OT D/C of Non Returning Pton 11-09-2024 OT D/C of Non Returning Pt [facility] Occupational Therapy [facility] [address] [place] [address] [address] [place] [address] / REHABILITATION SERVICES DISCHARGE SUMMARY MR#: [id number] Acct: [id number] Name: JAYLIN OLIVEROS Rep #: [id number] : 1955 69 From: Harper Shields OTR/L, [...] found appropriate by the physician. Thank you! KEEGAN Orr, CHT 11/09/24 1319 CC: SILVINO Greer; Dr. Chauncey Anderson, [place] Signed Normal [facility] OT D/C of Non Returning Pton 10-27-2024 OT D/C of Non Returning Pt [facility] Occupational Therapy [facility] [address] [place] [address] / REHABILITATION SERVICES DISCHARGE SUMMARY MR#: [id number] Acct: [id number] Name: JAYLIN OLIVEROS Rep #: [id number] : 1955 69 From: Harper VANEGAS/Jojo, T Referring Dr.: SILVINO Greer Status: REG R CR Eval [...] found appropriate by the physician. Thank you! KEEGAN Orr, T 10/27/24 0955 CC: SILVINO Greer; Dr. Chauncey Anderson, [place] Signed Normal [facility] Neurology Visit Reporton Neurology Visit Report [facility] [address] [place] [address], [address] [place] [address] OFFICE VISIT Date of Service: 08/29/24 MR#: [id number] Acct: [id number] Name: JAYLIN OLIVEROS Rep #: [id number] : 1955 Provider: Dr. Jules escobar MD Age/Sex: 68/F Location: [facility] [place]. Status: Signed [facility] Chief Complaint: Details: Interim History: Jaylin [...] was offered. She is seeing a painter barrel, Dr. Renee, and is prescribed pregabalin and [...] She states that on evaluation by a city detective she was not felt to have psoriatic arthritis however on evaluation by her finisher merchant products she was felt to have psoriatic arthritis. [...] Lumbar sp (more content not included)... Normal [facility] OT General Evaluationon 05-3 OT General Evaluation [facility] Occupational Therapy [facility] [address] [place] [address] / REHABILITATION SERVICES INITIAL EVALUATION MR#: [id number] Acct: [id number] Name: JAYLIN OLIVEROS Rep #: [id number] : 1955 68 From: Harper VANEGAS/ELIA Uribe Referring Dr.: SILVINO Greer Status: REG R CR Insurance: MEDICARE PART A B Eval Date: [facility] Patient's Visit Information Visit Information Visit Information: JAYLIN OLIVEROS is a 68 year old F, referred to Occupational Therapy by SILVINO Greer, with a diagnosis of S66.391A extensor tendon injury/left IF pain. Date of Evaluation: 07/22/24 Occupational Therapist: ROMINA Orr/ELIA Uribe Subjective Subjective: This 68 year old female [...] Goals Goal:: pt will demo the a metal machinist strength of 30# or greater to return [...] limited ROM and weakness as any resistive metal machinist causes pain. pt demo need for skilled [...] to be FAXED BACK to us at [phone] for Medicare purposes. Please let me know if there are questions or concerns regarding this plan of care. Physician Signature: D ate: 07/22/24 1139 CC: SILVINO Greer; Dr. Chauncey Anderson, [place] Signed For Medicare only, by signing this I certify the plan of care. Physicians Signature Date [facility] Breast imaging reportOrdered By: Oleksandr Magallanes on 05-05-2024 Study report [facility] Imaging Services [address] [place], [place] [address] SCRN MAMM (CAD)W/LIZ BILAT MR#: [id number] Acct: [id number] Name: JAYLIN OLIVEROS Rep #: [id number] : 1955 F 68 From: Migue Magallanes MD PCP: Dr. Chauncey Anderson DO Status: [facility] CLI Study:SCRN MAMM (CAD)W/LIZ BILAT Date of Exa m: 05/05/24 Exam# [id number] Ordering Dr: Chauncey Anderson DO PROCEDURE: SCRN [...] of the results by letter. Reading Location: [id number] CC: Dr. Chauncey Anderson DO ~ Trauma Counsellor: Signed [facility] SCRN MAMM (CAD)W/LIZ BILATo n 05-05-2024 SCRN MAMM (CAD)W/LIZ BILAT [facility] Imaging Services [address] [place] [address] SCRN MAMM (CAD)W/LIZ BILAT MR#: [id number] Acct: [id number] Name: JAYLIN OLIVEROS Rep #: [id number] : 1955 F 68 From: Oleksandr mcwilliams MD PCP: Dr. Chauncey Anderson DO Status: REG CLI Study: SCRN MAMM (CAD)W/LIZ BILAT Date of Exam: 04/23 05/17 Exam# [id number] Ordering Dr: Chauncey Anderson DO PROCEDURE: SCRN [...] of the results by letter. Reading Location: [id number] CC: Dr. Chauncey Anderson DO Trauma Counsellor: Signed Normal [facility] Basic Metabolic Profile (BMP )on 04-30-2024 BUN/CRE 15.6 RATIO Normal 10-20 [facility] Comment on above: Performed By: #### L 506.0400, L501.9520, L500.2500, L501.5200 #### [facility] [address] [place], [address] Calcium [Mass/Vol] 9.7 mg/dL Normal 7.6-11.0 [facility] Comment on above: Performed By: #### L 506.0400, L501.9520, L500.2500, L501.5200 #### [facility] [address] [place], [address] Chloride [Moles/Vol] 100 mmol/L Normal 98-108 [facility] Comment on above: Performed By: #### L 506.0400, L501.9520, L500.2500, L501.5200 #### [facility] [address] [place], [address] CO2 [Moles/Vol] 24.4 mmol/L Normal 21.0-32.0 [facility] Comment on above: Performed By: #### L 506.0400, L501.9520, L500.2500, L501.5200 #### [facility] [address] [place], [address] Creatinine [Mass/Vol] 0.74 mg/dL Normal 0.70-1.20 [facility] Comment on above: Performed By: #### L 506.0400, L501.9520, L500.2500, L501.5200 #### [facility] [address] [place], [address] GAP 15 Normal 5-15 [facility] Comment on above: Performed By: #### L 506.0400, L501.9520, L500.2500, L501.5200 #### [facility] [address] [place], [address] GFR/1.73 sq M.predicted among non-blacks MDRD (S/P/Bld) [Vol rate/Area] 89 mL/min/{1.73_m2} Normal >60 [facility] Comment on above: Result Comment: mL/m in/1.73m2 CKD-EPI Creatinine Equation (2020) Performed By: #### L 506.0400, L501.9520, L500.2500, L501.5200 #### [facility] [address] [place], [address] Glucose [Mass/Vol] 89 mg/dL Normal 70-99 [facility] Comment on above: Performed By: #### L 506.0400, L501.9520, L500.2500, L501.5200 #### [facility] [address] [place], [address] Potassium [Moles/Vol] 4.2 mmol/L Normal 3.3-5.1 [facility] Comment on above: Performed By: #### L 506.0400, L501.9520, L500.2500, L501.5200 #### [facility] [address] [place], [address] Sodium [Moles/Vol] 139 mmol/L Normal 133-145 [facility] Comment on above: Performed By: #### L 506.0400, L501.9520, L500.2500, L501.5200 #### [facility] [address] [place], [address] Urea nitrogen [Mass/Vol] 12 mg/dL Normal 4-19 [facility] Comment on above: Performed By: #### L 506.0400, L501.9520, L500.2500, L501.5200 #### [facility] [address] [place], [address] Magnesiumon 04-30-2024 Magnesium [Mass/Vol] 2.3 mg/dL High 1.5-2.2 [facility] Comment on above: Performed By: #### L 506.0400, L501.9520, L500.2500, L501.5200 #### [facility] [address] [place], [address] T4 Free Directon 04-30-2024 T4 FREE DIRECT 1.20 ng/dL Normal 0.76-1.46 [facility] Comment on above: Performed By: #### L 506.0400, L501.9520, L500.2500, L501.5200 #### [facility] [address] [place], [address] Anion gap in Serum or Plasma Ordered By: Chauncey Anderson on 04-29-2024 Anion gap [Moles/Vol] 15 mmol/L 5-15 [facility] BUN/creatinine ratioOrdered By: Chauncey Anderson on 04-29-2024 Urea nitrogen/Creatinine [Mass ratio] 15.6 mg/mg 10-20 [facility] Carbon dioxide, total [Moles /volume] in Central venous bloodOrdered By: Chauncey Anderson on 04-29-2024 CO2 [Moles/Vol] 24.4 mmol/L 21.0-32.0 [facility] Chloride assayOrdered By: Mignon Anderson on 04-29-2024 Chloride [Moles/Vol] 100 mmol/L 98-108 [facility] GFR/1.73 sq M.predicted asael g non-blacks MDRD (S/P/Bld) [Vol rate/Area]Ordered By: Chauncey Anderson on 04-29-2024 Estimated GFR (MDRD) Non-Af Amer 89 >60 [facility] Comment on above: mL/min/1.73m2 CKD-EP I Creatinine Equation (2020) Magnesium (Unsp spec) [Mass/ Vol]Ordered By: Chauncey Anderson on 04-29-2024 Magnesium [Mass/Vol] 2.3 mg/dL High 1.5-2.2 [facility] Potassium (Unsp spec) [Mass/ Vol]Ordered By: Chauncey Anderson on 04-29-2024 Potassium [Moles/Vol] 4.2 mmol/L 3.3-5.1 [facility] Serum creatinine measurement (mass/volume)Ordered By: Chauncey Anderson on 04-29-2024 Creatinine [Mass/Vol] 0.74 mg/dL 0.70-1.20 [facility] Serum glucose measurement (m ass/volume)Ordered By: Chauncey Anderson on 04-29-2024 Glucose [Mass/Vol] 89 mg/dL 70-99 [facility] Serum or plasma calcium kingsley urement (mass/volume)Ordered By: Chauncey Anderson on 04-29-2024 Calcium [Mass/Vol] 9.7 mg/dL 7.6-11.0 [facility] Serum or plasma urea nitroge n measurement (mass/volume)Ordered By: Chauncey Anderson on 04-29-2024 Urea nitrogen [Mass/Vol] 12 mg/dL 4-19 [facility] Sodium levelOrdered By: Chauncey Anderson on 04-29-2024 Sodium [Moles/Vol] 139 mmol/L 133-145 [facility] T4 freeOrdered By: Chauncey nuno on 04-29-2024 Free T4 [Mass/Vol] 1.20 ng/dL 0.76-1.46 [facility] TSH DL <= 0.005 mIU/L QnOrde red By: Chauncey Anderson on 04-29-2024 Thyroid Stimulating Hormone (TSH) 0.668 uIU/mL 0.300-4.200 [facility] Thyroid Stim Hormone (TSH)on 04-29-2024 TSH 0.668 uIU/mL Normal 0.300-4.200 [facility] Comment on above: Performed By: #### L 506.0400, L501.9520, L500.2500, L501.5200 #### [facility] [address] [place], [place], [address] Neurology Visit Reporton Neurology Visit Report [facility] [address] [place] [address], [address] [place], [place] [address] OFFICE VISIT Date of Service: 03/03/24 MR#: [id number] Acct: [id number] Name: JAYLIN OLIVEROS Rep #: [id number] : 1955 Provider: Dr. Jules escobar MD Age/Sex: 68/F Location: [facility] [place]. Status: Signed HPI [facility] Chief Complaint: Details: Interim History: Jaylin returns [...] was offered. She is seeing a painter barrel, Dr. Renee, and is prescribed pregabalin and [...] She states that on evaluation by a city detective she was not felt to have psoriatic [...] unremarkable. IMPRESSION: (more content not included)... Normal [facility] Spine Cervical (Routine)on Spine Cervical (Routine) [facility] Imaging Services [address] [place] [address] Spine Cervical (Routine) MR#: [id number] Acct: [id number] Name: JAYLIN OLIVEROS Rep #: [id number] : 1955 F 68 From: Cory Canales MD PCP: Dr. Chauncey Anderson, DO Status: REG CLI Study: Spine Cervical (Routine) Date of Exam: Exam# [id number] Ordering Dr: Jules Payne MD [id number] EXAM: MR CERVICAL SPINE WITHOUT INTRAVENOUS CONTRAST [...] Signed: Cory Canales MD at 9:20 EST Reading Location ID and State: [facility] / [place] Tel , Service support , CC: Dr. Chauncey Anderson DO; Dr. Jules Payne MD Trauma Counsellor: Signed Normal [facility] Neurology Visit Reporton Neurology Visit Report [facility] [address], [address] [place] [address] OFFICE VISIT Date of Service: 12/21/23 MR#: [id number] Acct: [id number] Name: JAYLIN OLIVEROS Rep #: [id number] : 1955 Provider: Dr. Jules escobar MD Age/Sex: 68/F Location: [facility] [place].BN Status: Signed HPI [facility] Chief Complaint: Details: Interim History: Jaylin returns [...] was offered. She is seeing a painter barrel, Dr. Renee, and is prescribed pregabalin and [...] moderate lum (more content not included)... Normal [facility] Aldolase ser/plasOrdered By: Jules Payne on 10-14-2022 Aldolase [Catalytic activity/Vol] 3.8 mU/mL 3.3-10.3 [facility] Basophil percentageOrdered B y: Jules Payne on 10-14-2022 Basophil percentage Not Reportable [facility] Chloride [Moles/Vol] 105 mmol/L 98-107 [facility] Glucose [Mass/Vol] 100 mg/dL 74-106 [facility] Comment on above: Fasting Glucose resu lt from 100 to 125 mg/dL suggests IMPAIRED HOMEOSTASIS per A.D.A. criteria. Potassium [Moles/Vol] 3.8 mmol/L 3.5-5.1 [facility] Sodium [Moles/Vol] 139 mmol/L 136-145 [facility] Erythrocyte sedimentation ra teOrdered By: Jlues Payne on 10-14-2022 ESR (Bld) [Velocity] 7 mm/h 0-30 [facility] - Chemistry and C hemistry - challengeOrdered By: Jules Payne on 10-14-2022 CK [Catalytic activity/Vol] 38 U/L 26-192 [facility] CO2 [Moles/Vol] 27.0 mmol/L 21.0-32.0 [facility] Cobalamin (Vitamin B12) [Mass/Vol] 406 pg/mL 211-911 [facility] Myoglobin [Mass/Vol] 27 ng/mL 25-58 [facility] Comment on above: Performed at: [facility] [address] [id number] Director: Maikel Zhang PhD, Phone: [phone] at: - [facility] [id number] Director: Ofelia Gonzales MD, Phone: [phone] Urea nitrogen/Creatinine [Mass ratio] 23.7 mg/mg 10-20 [facility] No Panel InformationOrdered By: Jules Payne on 10-14-2022 Anti-Nuclear Antibody Screen Negative Negative [facility] Comment on above: Performed at: [facility] [address] [id number] Director: Maikel Zhang PhD, Phone: [phone] Centromere B Antibody Not Reportable [facility] Estimated GFR (MDRD) Amer 131 mL/min >60 [facility] Comment on above: GFR Calc Estimated GFR (MDRD) Non-Af Amer 108 mL/min >60 [facility] Comment on above: Non- GFR Calc Free Lambda Light Chains, Quant 12.5 mg/L 5.7-26.3 [facility] [employer]RATIVE [employer] JUDGE Antibody Not Reportable [facility] Whole Blood Vitamin B1 Level 175.0 nmol/L 66.5-200.0 [facility] Serum DNA double strand anti body assay (units/volume)Ordered By: Jules Payne on 10-14-2022 DNA double strand Ab Qn (S) Not Reportable [facility] Serum Alexa-1 antibody assay (u nits/volume)Ordered By: Jules Payne on 10-14-2022 Alexa-1 extractable nuclear Ab Qn (S) Not Reportable [facility] Serum Scl-70 extractable nuc lear antibody assay (units/volume)Ordered By: Jules Payne on 10-14-2022 SCL-70 extractable nuclear Ab Qn (S) Not Reportable [facility] Serum Bassett extractable nucl ear antibody detectionOrdered By: Jules Payne on 10-14-2022 Bassett extractable nuclear Ab Ql (S) Not Reportable [facility] Serum immunoglobulin kappa l ight chains/immunoglobulin lambda light chains mass ratioOrdered By: Jules Payne on 10-14-2022 Immunoglobulin light chains.kappa/Immunoglob ulin light chains.lambda (S) [Mass ratio] 1.15 0.26-1.65 [facility] Serum or plasma C reactive p rotein measurement (mass/volume)Ordered By: Jules Payne on 10-14-2022 CRP [Mass/Vol] 6.85 mg/L 0.0-3.0 [facility] Comment on above: C-Reactive Protein ( CRP) provides useful information for thediagnosis, therapy and monitoring of inflammatory processesand associated diseases. For the evaluation of Relative Riskfor Cardiovascular Disease, a High Sensitivity CRP (HSCRP)should be ordered. Serum or plasma calcium kingsley urement (mass/volume)Ordered By: Jules Payne on 10-14-2022 Calcium [Mass/Vol] 9.2 mg/dL 8.5-10.1 [facility] Serum or plasma creatinine m easurement (mass/volume)Ordered By: Jules Payne on 10-14-2022 Creatinine [Mass/Vol] 0.59 mg/dL 0.55-1.02 [facility] Comment on above: The validity of the calculated GFR & GFRAA in patients over 70 years has not been determined. Clinical correlation is essential. Serum or plasma folate measu rement (mass/volume)Ordered By: Jules Payne on 10-14-2022 Folate [Mass/Vol] 28.70 ng/mL 3.1-55.4 [facility] Serum or plasma immunoglobul in kappa light chains measurement (mass/volume)Ordered By: Jules Page [facility] on 10-14-2022 Immunoglobulin light chains.kappa [Mass/Vol] 14.4 mg/L 3.3-19.4 [facility] Serum or plasma urea nitroge n measurement (mass/volume)Ordered By: Jules Payne on 10-14-2022 Urea nitrogen [Mass/Vol] 14 mg/dL 7-18 [facility] Serum rheumatoid factor dete ctionOrdered By: Jules Payne on 10-14-2022 Rheumatoid factor Ql (S) < 10.0 IU/mL <15 [facility] Thin prep Papanicolaou smear with manual screeningOrdered By: Jules Page [facility] on 10-14-2022 Thin prep Papanicolaou smear with manual screening 7 5-15 [facility] Absolute lymphocyte countOrd ered By: Yas Silva on 09-04-2022 Lymphocytes Auto (Unsp spec) [#/Vol] 1.94 10*3/uL 0.83-4.51 [facility] Basophil percentageOrdered B y: Yas Silva on 09-04-2022 Basophils/100 WBC (Bld) 0.5 % 0-1 [facility] Bilirubin [Mass/Vol] 0.40 mg/dL 0.20-1.00 [facility] Comment on above: For patients on eltr ombopag therapy, use of Dimension [place] TBIL is not recommended. Chloride [Moles/Vol] 105 mmol/L 98-107 [facility] Cholesterol [Mass/Vol] 194 mg/dL <200 [facility] Comment on above: <200 mg/dL Desirable 200-240 mg/dL Borderline >240 mg/dL High Risk Eosinophils/100 WBC (Bld) 5.7 % 0-5 [facility] Glucose [Mass/Vol] 93 mg/dL 74-106 [facility] Neutrophils (Bld) [#/Vol] 2.8 10*3/uL 2.0-7.7 [facility] Neutrophils/100 WBC (Bld) 50.7 % 47-70 [facility] Potassium [Moles/Vol] 3.6 mmol/L 3.5-5.1 [facility] Protein [Mass/Vol] 6.7 g/dL 6.4-8.2 [facility] Sodium [Moles/Vol] 138 mmol/L 136-145 [facility] Triglyceride [Mass/Vol] 224 mg/dL <199 [facility] Comment on above: The drugs N-Acetylcy steine and Metamizole may falsely depress this assay.Serum Triglycerides Reference Interval Normal <150 mg/dL Borderline high 150 - 199 mg/dL High 200 - 499 mg/dL Very High > or = 500 mg/dL WBC (Bld) [#/Vol] 5.6 10*3/uL 4.4-11.0 [facility] Blood erythrocytes count (nu mber/volume)Ordered By: Yas Silva on 09-04-2022 RBC (Bld) [#/Vol] 4.28 10*6/uL 4.2-5.4 [facility] Blood hemoglobin measurement (mass/volume)Ordered By: Yas Silva on 09-04-2022 Hemoglobin (Bld) [Mass/Vol] 12.0 g/dL 12.0-15.0 [facility] Blood lymphocytes/100 leukoc ytesOrdered By: Yas Silva on 09-04-2022 Lymphocytes/100 WBC (Bld) 34.8 % 19-41 [facility] Blood monocytes/100 leukocyt esOrdered By: Yas Silva on 09-04-2022 Monocytes/100 WBC (Bld) 7.9 % 0-10 [facility] Blood platelet mean volumeOr dered By: Yas Silva on 09-04-2022 Platelet mean volume (Bld) [Entitic vol] 10.3 fL 6.2-12.0 [facility] Cerebrospinal fluid Borrelia burgdorferi 18kd IgG antibody detection by immunoblotOrdered By: Yas Silva on 09-04-2022 B. burgdorferi 18kD IgG IB Ql (CSF) Absent . [facility] Cerebrospinal fluid Borrelia burgdorferi 23kD IgG antibody detection by immunoblotOrdered By: Yas Silva on 09-04-2022 B. burgdorferi 23kD IgG IB Ql (CSF) Absent . [facility] Cerebrospinal fluid Borrelia burgdorferi 23kD IgM antibody detection by immunoblotOrdered By: Yas Silva on 09-04-2022 B. burgdorferi 23kD IgM IB Ql (CSF) Present . [facility] Cerebrospinal fluid Borrelia burgdorferi 28kD IgG antibody detection by immunoblotOrdered By: Yas Silva on 09-04-2022 B. burgdorferi 28kD IgG IB Ql (CSF) Absent . [facility] Cerebrospinal fluid Borrelia burgdorferi 39kD IgG antibody detection by immunoblotOrdered By: Yas Silva on 09-04-2022 B. burgdorferi 39kD IgG IB Ql (CSF) Absent . [facility] Cerebrospinal fluid Borrelia burgdorferi 39kD IgM antibody detection by immunoblotOrdered By: Yas Silva on 09-04-2022 B. burgdorferi 39kD IgM IB Ql (CSF) Absent . [facility] Cerebrospinal fluid Borrelia burgdorferi 41kD IgM antibody detection by immunoblotOrdered By: Yas Silva on 09-04-2022 B. burgdorferi 41kD IgM IB Ql (CSF) Absent . [facility] Determination of erythrocyte mean corpuscular volume (MCV)Ordered By: Yas Silva on 09-04-2022 MCV (RBC) [Entitic vol] 87.4 fL 81-99 [facility] Hematocrit Auto (Bld) [Volum e fraction]Ordered By: Yas Silva on 09-04-2022 Hematocrit (Bld) [Volume fraction] 37.4 % 37-47 [facility] - Chemistry and C hemistry - challengeOrdered By: Joppa Ricardo on 09-04-2022 ALP [Catalytic activity/Vol] 79 U/L 45-117 [facility] ALT [Catalytic activity/Vol] 22 U/L 13-56 [facility] CO2 [Moles/Vol] 28.0 mmol/L 21.0-32.0 [facility] Free T4 [Mass/Vol] 0.87 ng/dL 0.76-1.46 [facility] Globulin (S) [Mass/Vol] 3.5 g/dL 2.2-4.2 [facility] Urea nitrogen/Creatinine [Mass ratio] 21.5 mg/mg 10-20 [facility] - Hematology and Cell countsOrdered By: Yas Silva on 09-04-2022 Erythrocyte distribution width (RBC) [Entitic vol] 40.8 fL 35.1-43.9 [facility] Erythrocyte distribution width (RBC) [Ratio] 12.8 % 11.6-14.6 [facility] Immature granulocytes/100 WBC (Bld) 0.400 % 0.0-0.9 [facility] Comment on above: IG% - Immature Granu locytes (promyelocytes, myelocytes and metamyelocytes) > 1% indicates that a LEFT SHIFT is Present. MCH (RBC) [Entitic mass] 28.0 pg 27.0-32.0 [facility] Nucleated RBC/100 WBC (Bld) [Ratio] 0 % 0-5 [facility] MCHC Auto (RBC) [Mass/Vol]Or dered By: Yas Silva on 09-04-2022 MCHC (RBC) [Mass/Vol] 32.1 g/dL 32-36 [facility] No Panel InformationOrdered By: Yas Silva on 09-04-2022 Estimated GFR (MDRD) Amer 128 mL/min >60 [facility] Comment on above: GFR Calc Estimated GFR (MDRD) Non-Af Amer 105 mL/min >60 [facility] Comment on above: Non- GFR Calc Lyme Disease IgG Ab 30 kDa Band Absent . [facility] Lyme Disease IgG Ab 93 kDa Band Absent . [facility] Lyme Disease IgG West Blot Interp Negative . [facility] Comment on above: Positive: 5 of the f ollowing Borrelia-specific bands: 18,23,28,30,39,41,45,58, 66, and 93. Negative: No bands or banding patterns which do not meet positive criteria. Lyme Disease IgM Ab (Western Blot) Negative . [facility] Comment on above: Note: An equivocal o r positive EIA result followed by anegative Line Blot result is considered NEGATIVE. Anequivocal or positive EIA result followed by a positiveLine Blot is considered POSITIVE by the CDC.Positive: 2 of the following bands: 23,39 or 41Negative: No bands or banding patterns which do not meetpositive criteria.Criteria for positivity are those recommended byCDC/ASTPHLD. p23=Osp C, f24=nlweffjspIpcw:Sera from individuals with the following may cross [...] testingto improve the sensitivity and specificity of testing.[facility] offers test code 017030 Lyme Disease Serology withReflex to aid in the diagnosis of Lyme Disease.Performed at: [address] [id number] Director: Ofelia Gonzales MD, Phone: [phone] Thyroid Stimulating Hormone (TSH) 1.44 uIU/mL 0.358-3.74 [facility] Platelets bldOrdered By: Reji Silva on 09-04-2022 Platelets (Bld) [#/Vol] 248 10*3/uL 150-450 [facility] Serum Borrelia burgdorferi 4 1kD IgG antibody detection by immunoblotOrdered By: Yas Silva on 09-04-2022 B. burgdorferi 41kD IgG IB Ql (S) Absent . [facility] Serum Borrelia burgdorferi 6 6kD IgG antibody detection by immunoblotOrdered By: Yas Silva on 09-04-2022 B. burgdorferi 66kD IgG IB Ql (S) Absent . [facility] Serum heterophile antibody d etectionOrdered By: Yas Silva on 09-04-2022 Heterophile Ab Ql (S) Negative Negative [facility] Serum or plasma albumin kingsley urement (mass/volume)Ordered By: Yas Silva on 09-04-2022 Albumin [Mass/Vol] 3.2 g/dL 3.2-5.0 [facility] Serum or plasma albumin/glob ulin mass ratioOrdered By: Yas Silva on 09-04-2022 Albumin/Globulin [Mass ratio] 0.9 {ratio} 0.9-2.4 [facility] Serum or plasma calcium kingsley urement (mass/volume)Ordered By: Yas Silva on 09-04-2022 Calcium [Mass/Vol] 8.6 mg/dL 8.5-10.1 [facility] Serum or plasma cholesterol in HDL measurement (mass/volume)Ordered By: Yas Silva on 09-04-2022 Cholesterol in HDL [Mass/Vol] 36 mg/dL >40 [facility] Comment on above: The drugs N-Acetylcy steine and Metamizole may falsely depress this assay. Reference Range HDL <40 mg/dL Low HDL Cholesterol HDL >or= 60 mg/dL High HDL Cholesterol Serum or plasma cholesterol in VLDL measurement (mass/volume)Ordered By: Yas Silva on 09-04-2022 Cholesterol in VLDL [Mass/Vol] 45 mg/dL 5-40 [facility] Serum or plasma creatinine m easurement (mass/volume)Ordered By: Yas Silva on 09-04-2022 Creatinine [Mass/Vol] 0.60 mg/dL 0.55-1.02 [facility] Comment on above: The validity of the calculated GFR & GFRAA in patients over 70 years has not been determined. Clinical correlation is essential. Serum or plasma low density lipoprotein (LDL) cholesterol measurement (mass/volume)Ordered By: Yas Silva on 09-04-2022 Cholesterol in LDL [Mass/Vol] 113 mg/dL 0-130 [facility] Serum or plasma urea nitroge n measurement (mass/volume)Ordered By: Yas Silva on 09-04-2022 Urea nitrogen [Mass/Vol] 13 mg/dL 7-18 [facility] Synovial fluid Borrelia magnus dorferi 45kD IgG antibody detection by immunoblotOrdered By: Yas Silva on 09-04-2022 B. burgdorferi 45kD IgG IB Ql (Syn fld) Absent . [facility] Synovial fluid Borrelia magnus dorferi 58kD IgG antibody detection by immunoblotOrdered By: Yas Silva on 09-04-2022 B. burgdorferi 58kD IgG IB Ql (Syn fld) Absent . [facility] Thin prep Papanicolaou smear with manual screeningOrdered By: Yas Silva on 09-04-2022 Thin prep Papanicolaou smear with manual screening 18 U/L 15-37 [facility] Thin prep Papanicolaou smear with manual screening 5 5-15 [facility] Basophil percentageon 2021 Bilirubin [Mass/Vol] 0.40 mg/dL 0.20-1.00 [facility] Work Phone: Comment on above: For patients on eltr ombopag therapy, use of Dimension [place] TBIL is not recommended. Cholesterol [Mass/Vol] 190 mg/dL <200 [facility] Work Phone: Comment on above: <200 mg/dL Desirable 200-240 mg/dL Borderline >240 mg/dL High Risk Protein [Mass/Vol] 7.5 g/dL 6.4-8.2 [facility] Work Phone: Triglyceride [Mass/Vol] 368 mg/dL <199 [facility] Work Phone: Comment on above: The drugs N-Acetylcy steine and Metamizole may falsely depress this assay.Serum Triglycerides Reference Interval Normal <150 mg/dL Borderline high 150 - 199 mg/dL High 200 - 499 mg/dL Very High > or = 500 mg/dL Direct bilirubinon 2 Bilirubin.direct [Mass/Vol] 0.07 mg/dL 0.00-0.30 [facility] Work Phone: Laboratory - Chemistry and C hemistry - challengeon 11-16-2021 ALP [Catalytic activity/Vol] 98 U/L 45-117 [facility] Work Phone: ALT [Catalytic activity/Vol] 21 U/L 13-56 [facility] Work Phone: Globulin (S) [Mass/Vol] 3.8 g/dL 2.2-4.2 [facility] Work Phone: Serum or plasma albumin kingsley urement (mass/volume)on 11-16-2021 Albumin [Mass/Vol] 3.7 g/dL 3.2-5.0 [facility] Work Phone: Serum or plasma cholesterol in HDL measurement (mass/volume)on 11-16-2021 Cholesterol in HDL [Mass/Vol] 35 mg/dL >40 [facility] Work Phone: Comment on above: The drugs N-Acetylcy steine and Metamizole may falsely depress this assay. Reference Range HDL <40 mg/dL Low HDL Cholesterol HDL >or= 60 mg/dL High HDL Cholesterol Serum or plasma cholesterol in VLDL measurement (mass/volume)on 11-16-2021 Cholesterol in VLDL [Mass/Vol] 74 mg/dL 5-40 [facility] Work Phone: Serum or plasma low density lipoprotein (LDL) cholesterol measurement (mass/volume)on 11-16-2021 Cholesterol in LDL [Mass/Vol] 81 mg/dL 0-130 [facility] Work Phone: Thin prep Papanicolaou smear with manual screeningon 11-16-2021 Thin prep Papanicolaou smear with manual screening 15 U/L 15-37 [facility] Work Phone: CNOVon 03-30-2019 CNOV Office Visit (UCWSTR) JAYLIN OLIVEROS ([id number]) 1955 F Date Time Provider Department 03/30/19 8:30 AM SHANNAN CORTEZ) WS During your visit today, we recorded the [...] mg ORAL tablet Take one(1) tablet daily ([id number]-[id number]), prn - COCONUT OIL ORAL Take by [...] A STREPTOCOCCUS BY PCR [SQGASPCR] Order #: [id number] RAPID STREP TEST B/O [[id number]] Order #: [id number] Prescriptions as of 03/30/2019 Sig: CINNAMON ORAL [...] by SHANNAN CORTEZ PA-C on 03/30/19 Normal [facility] Group A Strep by PCRon 03-30 GAS Specimen Source Throat Swab Normal [facility] Comment on above: Performed By: #### G ASPCR #### [facility] [address] [id number] Group A Strep PCR Negative Normal [facility] Comment on above: Result Comment: This test was developed and its performance characteristics determined by [facility] [place] [employer] ( [facility]). It has not been cleared or approved by the FDA. [facility] is regulated under CLIA as qualified to perform high complexity testing. This test is used for clinical purposes. It should not be regarded as investigational or for research. Performed By: #### G ASPCR #### [facility] [address] [id number] PROGRESSon 03-30-2019 PROGRESS HNO ID: [id number] Author: Shannan Cortez Service: ? Author Type: Physician Webbing Weaver Type: Progress Notes Filed: 03/30/2019 3:56 PM [...] - Old disruption of anterior cruciate ligament 2001 ACL tear, Left knee - Personal history [...] mg ORAL tablet Take one(1) tablet daily ([id number]-cesrbpx), prn - COCONUT OIL ORAL Take by [...] STREP TEST B/O Shannan Cortez PA-C Normal [facility] Vital Signs Date Time Vital Sign Value Performing Clinician Rick louis 08-29-2024 08:21-0400 Body temperature 98 [degF] Dr. Chauncey Anderson DO Work Phone: [facility] 08-29-2024 08:21-0400 Body weight 75.[address] Chauncey Anderson DO Work Phone: [facility] 08-29-2024 08:21-0400 Diastolic blood pressure 83 mm[Hg] Dr. Chauncey Anderson DO Work Phone: [facility] 08-29-2024 08:21-0400 Heart rate 75 /min Dr. Chauncey Anderson DO Work Phone: [facility] 08-29-2024 08:21-0400 Respiratory rate 17 /min Dr. Chauncey Anderson DO Work Phone: [facility] 08-29-2024 08:21-0400 SaO2% (BldA) [Mass fraction] 75 % Dr. Chauncey Anderson DO Work Phone: [facility] 08-29-2024 08:21-0400 Systolic blood pressure 134 mm[Hg] Dr. Chauncey Anderson DO Work Phone: [facility] 05-23-2024 13:00-0400 Body height 157.[address] Chauncey Anderson DO Work Phone: [facility] 05-23-2024 13:00-0400 Body weight 81.[address] Chauncey Anderson DO Work Phone: [facility] 04-13-2024 15:02-0500 Body height 157.[address] Chauncey Anderson DO Work Phone: [facility] 04-13-2024 15:02-0500 Body weight 83.[address] Chauncey Anderson DO Work Phone: [facility] 03-03-2024 08:22-0500 Body mass index (BMI) [Ratio] 34.4 kg/m2 Dr. Chauncey Anderson DO Work Phone: [facility] 03-03-2024 08:22-0500 Body temperature 97.7 [degF] Dr. Chauncey Anderson DO Work Phone: [facility] 03-03-2024 08:22-0500 Body weight 85.[address] Chauncey Anderson DO Work Phone: [facility] 03-03-2024 08:22-0500 Diastolic blood pressure 82 mm[Hg] Dr. Chauncey Anderson DO Work Phone: [facility] 03-03-2024 08:22-0500 Heart rate 76 /min Dr. Chauncey Anderson DO Work Phone: [facility] 03-03-2024 08:22-0500 Respiratory rate 16 /min Dr. Chauncey Anderson DO Work Phone: [facility] 03-03-2024 08:22-0500 SaO2% (BldA) [Mass fraction] 95 % Dr. Chauncey Anderson DO Work Phone: [facility] 03-03-2024 08:22-0500 Systolic blood pressure 138 mm[Hg] Dr. Chauncey Anderson DO Work Phone: [facility] 06-22-2023 07:56-0400 Body height 157.[address] Chauncey Anderson Work Phone: [facility] 06-22-2023 07:56-0400 Body mass index (BMI) [Ratio] 35.4 kg/m2 Dr. Chauncey Anderson Work Phone: [facility] 06-22-2023 07:56-0400 Body temperature 97.8 [degF] Dr. Chauncey Anderson Work Phone: [facility] 06-22-2023 07:56-0400 Body weight 87.[address] Chauncey Anderson Work Phone: [facility] 06-22-2023 07:56-0400 Diastolic blood pressure 78 mm[Hg] Dr. Chauncey Anderson Work Phone: [facility] 06-22-2023 07:56-0400 Heart rate 85 /min Dr. Chauncey Anderson Work Phone: [facility] 06-22-2023 07:56-0400 Respiratory rate 17 /min Dr. Chauncey Anderson Work Phone: [facility] 06-22-2023 07:56-0400 SaO2% (BldA) [Mass fraction] 95 % Dr. Chauncey nAderson Work Phone: [facility] 06-22-2023 07:56-0400 Systolic blood pressure 120 mm[Hg] Dr. Chauncey Anderson Work Phone: [facility] 03-19-2023 15:41-0500 Body height 157.[address] Chauncey Anderson Work Phone: [facility] 03-19-2023 15:41-0500 Body mass index (BMI) [Ratio] 34 kg/m2 Dr. Chauncey Anderson Work Phone: [facility] 03-19-2023 15:41-0500 Body temperature 98 [degF] Dr. Chauncey Anderson Work Phone: [facility] 03-19-2023 15:41-0500 Body weight 84.[address] Chauncey Anderson Work Phone: [facility] 03-19-2023 15:41-0500 Diastolic blood pressure 70 mm[Hg] Dr. Chauncey Anderson Work Phone: [facility] 03-19-2023 15:41-0500 Heart rate 89 /min Dr. Chauncey Anderson Work Phone: [facility] 03-19-2023 15:41-0500 Respiratory rate 17 /min Dr. Chauncey Anderson Work Phone: [facility] 03-19-2023 15:41-0500 SaO2% (BldA) [Mass fraction] 95 % Dr. Chauncey Anderson Work Phone: [facility] 03-19-2023 15:41-0500 Systolic blood pressure 140 mm[Hg] Dr. Chauncey Anderson Work Phone: [facility] 02-17-2023 08:01-0500 Body mass index (BMI) [Ratio] 34.4 kg/m2 Dr. Chauncey Anderson Work Phone: [facility] 02-17-2023 08:01-0500 Body temperature 98 [degF] Dr. Chauncey Anderson Work Phone: [facility] 02-17-2023 08:01-0500 Body weight 85.[address] Chauncey Anderson Work Phone: [facility] 02-17-2023 08:01-0500 Diastolic blood pressure 80 mm[Hg] Dr. Chauncey Anderson Work Phone: [facility] 02-17-2023 08:01-0500 Heart rate 76 /min Dr. Chauncey Anderson Work Phone: [facility] 02-17-2023 08:01-0500 Respiratory rate 17 /min Dr. Chauncey Anderson Work Phone: [facility] 02-17-2023 08:01-0500 SaO2% (BldA) [Mass fraction] 97 % Dr. Chauncey Anderson Work Phone: [facility] 02-17-2023 08:01-0500 Systolic blood pressure 138 mm[Hg] Dr. Chauncey Anderson Work Phone: [facility] 10-13-2022 08:54-0400 Body height 157.[address] Chauncey Anderson Work Phone: [facility] 10-13-2022 08:54-0400 Body mass index (BMI) [Ratio] 34.4 kg/m2 Dr. Chauncey Anderson Work Phone: [facility] 10-13-2022 08:54-0400 Body temperature 97.8 [degF] Dr. Chauncey Anderson Work Phone: [facility] 10-13-2022 08:54-0400 Body weight 85.[address] Chauncey Anderson Work Phone: [facility] 10-13-2022 08:54-0400 Diastolic blood pressure 78 mm[Hg] Dr. Chauncey Anderson Work Phone: [facility] 10-13-2022 08:54-0400 Heart rate 78 /min Dr. Chauncey Anderson Work Phone: [facility] 10-13-2022 08:54-0400 Respiratory rate 16 /min Dr. Chauncey Anderson Work Phone: [facility] 10-13-2022 08:54-0400 SaO2% (BldA) [Mass fraction] 96 % Dr. Chauncey Anderson Work Phone: [facility] 10-13-2022 08:54-0400 Systolic blood pressure 120 mm[Hg] Dr. Chauncey Anderson Work Phone: [facility] Encounters Encounter Date Encounter Type Care Provider Facility Start: 12-09-2024 ambulatory Chauncey Anderson Facility: [facility] Start: 11-10-2024 End: 11-10-[address] Chauncey Anderson DO Work Phone: [facility] Start: 11-10-2024 End: 11-10-[address] Chauncey [facility] DO [facility] Work Phone: Start: 11-10-2024 End: 11-10-2024 ambulatory Chauncey Anderson Facility:[facility] Start: 08-29-2024 End: 08-29-[address] Jules Payne MD -[facility] Work Phone: Start: 08-29-2024 End: 08-29-[address] Chauncey Anderson DO Work Phone: -[facility] Start: 07-26-2024 ambulatory Chauncey Anderson Facility: [facility] Start: 07-22-2024 End: 07-22-2024 Discharged Recurring Oralia DUBOIS -Occupational Thera py Work Phone: Start: 07-22-2024 Registered Recurring Oralia DUBOIS -Occupational Therapy Work Phone: Start: 07-22-2024 End: 07-22-[address] Chauncey Anderson DO Work Phone: -Occupational Therapy Start: 05-23-2024 End: 05-23-[address] Chauncey Anderson DO -Nutritional Servi birelle Work Phone: Start: 05-23-2024 End: 05-23-[address] Chauncey Anderson DO Work Phone: [facility] Work Phone: Start: 05-05-2024 End: 05-05-[address] Chauncey nAderson DO Work Phone: [facility] Work Phone: Start: 05-05-2024 End: 05-05-[address] Chauncey Anderson DO -Outpatient Breast Imaging Work Phone: Start: 05-05-2024 End: 05-05-2024 ambulatory Chauncey Anderson Facility:[facility] Start: 05-03-2024 Non-patient / Non-visit Dr. Joanne Ackerman MD -[facility] Work Phone: Start: 05-03-2024 End: 05-03-[address] Chauncey Anderson DO Work Phone: [facility] Work Phone: Start: 05-03-2024 End: 05-03-[address] Chauncey Anderson DO -Pulmonary Services/Neurology Work Phone: Start: 05-03-2024 End: 05-03-2024 ambulatory Chauncey Anderson Facility:[facility] Start: 04-29-2024 End: 04-29-[address] Chauncey Anderson DO Work Phone: [facility] Work Phone: Start: 04-29-2024 End: 04-29-[address] Chauncey Anderson DO -[facility] Work Phone: Start: 04-29-2024 End: 04-29-2024 ambulatory Chauncey Monica Facility:[facility] Start: 04-13-2024 End: 04-22-[address] Chauncey Anderson DO -[facility] Work Phone: Start: 04-13-2024 End: 04-22-[facility] Start: 03-03-2024 End: 03-03-[address] Jules Payne MD -[facility] Work Phone: Start: 03-03-2024 End: 03-03-2024 ambulatory Chauncey Monica Facility:[facility] Start: 02-23-2024 End: 02-23-[address] Jules Payne MD -[facility] Work Phone: Start: 02-23-2024 End: 02-23-2024 ambulatory Chauncey Monica Facility:[facility] Start: 12-21-2023 End: 12-21-2023 ambulatory [facility] Facility:[facility] Start: 06-29-2023 End: 06-29-[address] Chauncey Anderson Work Phone: [facility] Work Phone: Start: 06-29-2023 End: 06-29-[address] Chauncey Anderson Work Phone: [facility] Work Phone: Start: 06-22-2023 End: 06-22-[address] Chauncey Anderson Work Phone: [facility] Work Phone: Start: 03-31-2023 End: 03-31-[address] Chauncey Anderson Work Phone: [facility] Work Phone: Start: 03-31-2023 End: 03-31-[address] Chauncey Anderson Work Phone: [facility]-Sleep Lab Work Phone: Start: 03-19-2023 End: 03-19-[address] Chauncey Anderson Work Phone: [facility] Work Phone: Start: 02-17-2023 End: 02-17-[address] Chauncey Anderson Work Phone: [facility] Work Phone: Start: 12-10-2022 Non-patient / Non-visit Dr. Mignon Anderson Work Phone: [facility] Start: 12-10-2022 End: 12-10-[address] Chauncey Anderson Work Phone: [facility]-Pulmonary Services/Neurology Work Phone: Start: 12-02-2022 Non-patient / Non-visit Dr. Mignon Anderson Work Phone: [facility] Start: 12-02-2022 End: 12-02-[address] Chauncey Anderson Work Phone: [facility] Work Phone: Start: 12-02-2022 End: 12-02-[address] Chuancey Anderson Work Phone: [facility]-Pulmonary Services/Neurology Work Phone: Start: 11-27-2022 End: 11-27-[address] Chauncey Anderson Work Phone: [facility]-Physical Therapy Work Phone: Start: 10-17-[address] Chauncey Anderson Work Phone: [facility]-Physical Therapy Work Phone: Start: 10-14-2022 End: 10-14-[address] Chauncey Anderson Work Phone: [facility] Work Phone: Start: 10-14-2022 End: 10-14-[address] Chauncey Anderson Work Phone: [facility], [place] Work Phone: Start: 10-13-2022 End: 10-13-[address] Chauncey Anderson Work Phone: [facility] Work Phone: Start: 09-11-2022 End: 09-11-[address] Chauncey Anderson Work Phone: [facility] Work Phone: Start: 09-04-2022 End: 09-04-2022 ambulatory [facility] Work Phone: Start: 09-04-2022 End: 09-04-2022 Patient encounter procedure [facility]-Laboratory Work Phone: Start: 06-17-2022 Transcribe Orders Chauncey Landa DO Work Phone: [facility] Comment on above: Paresthesia (Primary Dx) Start: 04-02-2022 End: 04-02-2022 ambulatory [facility] Work Phone: Start: 04-02-2022 End: 04-02-2022 Patient encounter procedure [facility]-MRI - [facility] Start: 03-19-2022 End: 03-19-2022 ambulatory [facility] Work Phone: Start: 03-19-2022 End: 03-19-2022 Patient encounter procedure [facility]-Outpatient Bone Densitometry Start: 02-10-2022 End: 02-10-2022 ambulatory [facility] Work Phone: Start: 02-10-2022 End: 02-10-2022 Discharged Recurring [facility]-Physical Therapy Start: 11-16-2021 End: 11-16-2021 Patient encounter procedure [facility]-Laboratory Procedures Date Procedure Procedure Detail Performing Clinician Start: 11-10-2024 MRI of brain with contrast Dr. Chauncey Anderson DO Work Phone: Start: 05-05-2024 Screening mammography Yoshi Anderson DO [...] Treatment Date Care Activity Detail Author Start: 11-10-2024 MR Brain WO and W contrast IV [facility] Start: 11-10-2024 MRI of brain with contrast Brain W/WO Contrast [facility] Start: 10-24-2022 Influenza vaccination Sequential Influenza Vaccine (Season Ended) [facility] Start: 08-22-2022 End: 08-22-2022 Patient encounter procedure 08/22/2022 10:10 AM EDT Office Visit [facility] [address] [place] [address] [address] [place] [address] Xu Alvarez MD [address] [place] [address] [place] [address] [facility] Start: 2021 Fall risk assessment Falls Risk Assessment [facility] Start: 2021 Pneumococcal Vaccine: Age 65+ (1 - PCV) Pneumococcal Vaccine: Age 65+ (1 - PCV) [facility] Start: 2006 Administration of herpes zoster vaccine Zoster Vaccines (1 of 2) [facility] Start: 1974 Hepatitis C screening Hepatitis C Screening [facility] Start: 10-27-1971 HIV screening HIV Screening [facility] Start: 1968 Depression screening using PHQ-9 (Patient Health Questionnaire 9) score Depression Screening (PHQ-2/9) [facility] Start: 10-27-1959 History and physical examination, annual for health maintenance Wellness Visit [facility] Start: 04-25-1957 COVID-19 Vaccine (#1) COVID-19 Vaccine (#1) [facility] Start: 1956 Screening for malignant neoplasm of colon [facility] Start: 1956 Screening for osteoporosis Dexa Scan [facility] Start: 1956 Tetanus vaccination Tetanus: Every 10yrs [facility] Immunizations Immunization Date Immunization Notes Care Provider Clinton ceja 11-24-2015 Influenza virus vaccine [facility] Payers Date Payer Category Payer Self-pay [id number] Self-pay [id number] 2021 Medicare MEDICARE MEDICAR E PART A & B [id number] 2021-Present [phone] CGS [id number] PART A CLAIMS [address] [address] [place] [address] [id number] 2021 Unknown MMO [employer] [place] TRAD[employer]AL [id number] 2021-Present [phone] [address] [place] [address] [id number] 2021 Medicare [id number] 2015 Unknown [id number] Unknown [id number] Unknown [id number] Unknown [id number] Unknown [id number] Unknown [id number] Unknown [id number] Unknown [id number] Unknown [id number] Unknown [id number] Unknown [id number] Unknown [id number] Unknown [id number] Unknown [id number] Unknown [id number] Social History Date Type Detail Facility Start: 02-29-2020 End: 03-19-2023 Tobacco smoking status NHIS Unknown if ever smoked [facility] Start: 1955 Sex Assigned At Female [facility] Start: 1955 Sex Assigned At Not on file [facility] Gender identity Not on file [facility] Start: 03-19-2023 Tobacco smoking stat us NHIS Never smoked tobacco (finding) [facility] Start: 05-11-2024 End: 05-24-2024 Sex Female (finding) [facility] Evaluation note 08-29-2024 Note Date & Type Note Facility 08-29-2024 Evaluation note Diagnosis Onset Date Resolution Anxiety acute August 29, 2024 8:14am Depression acute August 29, 2024 8:14am Fibromyalgia acute August 29 8:14am Paresthesias acute August 29 8:14am Low back pain chronic August 29 025 8:14am Neck pain chronic August 29, 2024 8:14am [facility] Work Phone: Evaluation note 03-03-2024 Note Date & Type Note Facility 03-03-2024 Evaluation note Diagnosis Onset Date Resolution Anxiety acute March 03, 2 025 8:22am Depression acute March 03 025 8:22am Fibromyalgia acute March 03, 2024 8:22am Paresthesias acute March 03, 2024 8:22am Low back pain chronic February 8:22am Neck pain chronic March 03, 025 8:22am [facility] Work Phone: Procedure note 12-02-2022 Note Date & Type Note Facility 12-02-2022 Procedure note [facility] Evaluation note Note Date & Type Note Facility Evaluation note No assessment information availa ble [facility] Work Phone: Evaluation note Note Date & Type Note Facility Evaluation note Diagnosis Paresthesia- Primary Disturbance of skin sensation documented in this encounter [facility] Evaluation note Note Date & Type Note Facility Evaluation note Diagnosis Onset Date Paresthesias acute Low back pain chronic Neck pain chronic [facility] Work Phone: Evaluation note Note Date & Type Note Facility Evaluation note Diagnosis Onset Date Bilateral carpal tunnel syndrome acute Fatigue acute Paresthesias acute Low back pain chronic Neck pain chronic Hypersomnia acute Paresthesias acute [facility] Work Phone: Evaluation note Note Date & Type Note Facility Evaluation note Diagnosis Onset Date Hypersomnia acute Paresthesias acute Left lumbar radiculopathy ac [place] Low back pain chronic Neck pain chronic [facility] Work Phone: Reason for referral (narrative) Note Date & Type Note Facility Reason for referral (narrative) No reason for referral information available [facility] Work Phone: Summary Purpose Family History No Family History Records FoundNo Family History Records Found Advance Directives No Advanced Directives Records Found Advance Directive Response Recorded Date/ Time Advance Directives No December 2:53pm Living Will No January 06, 2 016 2:53pm Power of Geomorphology Teacher No January 07, 2016 2:53pm Advance Directive Response Recorded Date/ Time Advance Directives No December 3:53pm Living Will No January 06, 2 016 3:53pm Power of Geomorphology Teacher No January 07, 2016 3:53pm Advance Directive Response Recorded Date/ Time Advance Directives No December 3:53pm Chief Complaint and Reason for Visit Chief Complaint Admit Date 6 M FU August 29, 2024 8:14a m HEADACHES November 10, 2024 7:00am Reason for Visit Admit Date Anxiety August 29, 2024 8:14a m Depression August 29, 2024 8:14a m Fibromyalgia August 29, 2024 8:14a m Paresthesias August 29, 2024 8:14a m Low back pain August 29, 2024 8:14a m Neck pain August 29, 2024 8:14a m Chief Complaint SPINAL STENOSIS, SPO NDYLOLISTHESIS/RX HERE Chief Complaint SPINAL STENOSIS, SPO NDYLOLISTHESIS/RX HERE SCREENING/OSTEO CERVICAL SPONDYLOSIS/SPONDYLOLISTHESIS Chief Complaint 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 EORDER CERVIAL SPONDYLOSIS RX HERE Reason for Visit Paresthesias Low back pain Neck pain Chief Complaint 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 EORDER CERVIAL SPONDYLOSIS RX [...] M FU August 29, 2024 8:14a m Chief Complaint Admit Date SPLINT - EXT TENDON L INDEX FINGER/RX TO BE FAXED July 22, 2024 9:20am 6 M FU August 29, 2024 8:14a m HEADACHES November 10, 2024 7:00am Reason for Referral Specialty Diagnoses / Procedures Referred By Joselo farr Referred To Contact Neurology Diagnoses Paresthesia Chauncey Anderson, DO [address] [place] [address] Referral ID Status Reason Start Date Expiration Date V isits Requested Visits Authorized [id number] Authorized 06/17/2022 06/17/2023 1 1 Additional Source Comments INFORMATION SOURCE (unrecogn ized section and content) DATE CREATED AUTHOR 03/31/2019 [facility] DATE CREATED AUTHOR AUTHOR'S JOY ATYUVAL 12/11/2024 [facility] Goals (unrecognized section and content) Goals may [...] DO Family Provider Active Dr. Chauncey Anderson DO Primary Care Provider Active Team Status: Inactive Member Role Status Dates Dr. Chauncey Anderson DO Primary Care Provider Active Dr. Bijan Garcia , DO Attending Provider, Referring P last Active Team Status: Inactive Member Role Status Dates Dr. Chauncey Anderson DO Primary Care Prov ider, Attending Provider, [...] Referring Provider, Other Pro vider Active Dr. iKt Fay MD Attending Provider Active Team Status: [...] August 29, 2024 End: August 29, 2024 Team Status: Active Member Role/Relationship Status Dates Dr. Chauncey Anderson DO Primary care physician Active Team Status: Inactive Member Role/Relationship Status Dates Dr. Chauncey Anderson DO Primary care physician Active Start: July 22, 2024 End: July 22, 2024 SILVINO Greer Attending physician Active S tart: July 22, 2024 End: July 22, 2024 SILVINO Greer Referring Provider Active St art: July 22, 2024 End: July 22, 2024 Team Status: Inactive Member Role/Relationship Status Dates Dr. Chauncey Anderson DO Primary care physician Active Start: August 29, 2024 End: August 29, 2024 Dr. Chauncey Anderson DO Referring Provider Active Start: August 29, 2024 End: August 29, 2024 Dr. Jules Payne MD Attending physician Active Start: August 29, 2024 End: August 29, 2024 Team Status: Active Member Role/Relationship Status Dates Dr. Chauncey Anderson DO Primary care physician Active Start: November 10, 2024 Dr. Chauncey Anderson DO Attending physician Active Start: November 10, 2024 Dr. Chauncey Anderson DO Referring Provider Active Start: November 10, 2024 Team Status: Inactive Member Role/Relationship Status Dates Dr. Chauncey Anderson DO Primary care physician Active Start: August 29, 2024 End: August 29, 2024 Dr. Chauncey Anderson DO Referring Provider Active Start: August 29, 2024 End: August 29, 2024 Dr. Jules Payne MD Attending physician Active Start: August 29, 2024 End: August 29, 2024 Team Status: Inactive Member Role/Relationship Status Dates Dr. Chauncey Anderson DO Primary care physician Active Start: November 10, 2024 End: November 10, 2024 Dr. Chauncey Anderson DO Attending physician Active Start: November 10, 2024 End: November 10, 2024 Dr. Chauncey Anderson , DO Referring Provider Active Start: November 10, 2024 End: November 10, 2024 FOR RECORDS PERTAINING TO PATIENTS WHO [...] BE BASED ON THE PRIMARY CLINICAL RECORDS. [facility] [id number] [facility]. provides no warranty or guarantee of the accuracy or completeness of information in this document.
--- OUTSIDE RECORDS SUMMARY | 2024-12-13 07:31 | XMS RPT_ITS | CCD ---
Author Organization [facility] Care Team Providers Care Dentures Lab Technician Name Role Phone Unavailable Primary Care Provider [...] Dr. Chauncey Anderson DO Attending Provider [phone] Tyron LERNER, Dr. Starkey Attending Provider Monica HSU, Dr. Grossman Primary Care Provider Monica HSU, Dr. Grossman Attending Provider [phone] Monica HSU, Dr. Grossman Referring Provider [phone] Oralia Beard Attending Provider [phone] Oralia Beard Referring Provider [phone] Kerry LERNER, Dr. Vicente Attending Provider Monica HSU, Dr. Grossman Primary Care Physician Oralia Beard Attending Physician Monica HSU, Dr. Grossman Referring Provider [phone] Jules Payne MD Attending Physician Monica [...] oil (11 sources) Start: 10-13-2022 Start: 10-13-2022 Zcsjw-Go-6-Dha -Dez-Mihsamw-Myx (Krill Oil) 974-248-05-75 mg capsule Active 1 NMA PO DAILY October 13, 2022 12:00am Start: 10-13-2022 take 1 capsule by mouth once daily Itdzq-Kn-7-Hiq-Ffe-Awbcnfz-Ast (Krill Oi l) 399-908-75-75 mg capsule Active 1 CAP PO DAILY October 12, 2022 11:00pm Start: 10-13-2022 take 1 capsule by mouth once daily Zrbkv-Rk-6-Fjz-Jyx-Haustwn-Ast (Krill Oi l) 366-663-64-75 mg capsule Active 1 CAP PO DAILY October 13, 2022 12:00am Lactobacillus Combination No .4 (Senior Probiotic) 15 billion cell capsule (11 sources) Start: 10-13-2022 Start: 10-13-2022 Lactobacillus Combination No.4 (Senior Probiotic) 15 billion cell capsule Active 00340 NMA PO DAILY October 13, 2022 12:00am administer with a meal 16 strain probiotic i cap daily Start: 10-13-2022 Lactobacillus Combination No.4 (Senior Probiotic) 15 billion cell capsule Active 39455 MMU CELLS PO DAILY October 12, 2022 11:00pm administer with a meal 16 strain probiotic i cap daily Start: 10-13-2022 Lactobacillus Combination No.4 (Senior Probiotic) 15 billion cell capsule Active 03298 MMU CELLS PO DAILY October 13, 2022 [...] take one tablet once daily Thyroid (Pork) (Rotary Cutter Feeder Thyroid) 30 mg tablet (7 sources) Start: 02-17-2023 take 1 tablet by mouth once daily Thyroid (Pork) (Rotary Cutter Feeder Thyroid) 30 mg tablet Active 30 mg PO DAILY February 17, 2023 1:00am Start: 02-17-2023 take 1 tablet by mouth once da gabriel Thyroid (Pork) (Rotary Cutter Feeder Thyroid) 30 mg tablet Active 30 MG PO DAILY February 17, 2023 1:00am Start: 02-17-2023 take 1 tablet by mouth once da gabriel Thyroid (Pork) (Rotary Cutter Feeder Thyroid) 30 mg tablet Active 30 MG PO DAILY February 17, 2023 12:00am thyroid (intermediate) 30 mg oral tablet (4 sources) Start: [...] 12:00am October 13, 2022 9:20am Thyroid (Pork) ([place] Thyroid) 30 mg tablet (9 sources) Start: 10-13-2022 End: 02-17-2023 take 1 tablet by mouth once daily Thyroid (Pork) ([place] Thyroid) 30 mg tablet Discontinued 30 mg PO DAILY October 13, 2022 12:00am February 17, 2023 9:41am Start: 10-13-2022 End: 02-17-2023 take 1 tablet by mouth once daily Thyroid (Pork) ([place] Thyroid) 30 mg tablet Discontinued 30 MG PO DAILY October 13, 2022 12:00am February 17, 2023 9:41am Start: 10-13-2022 End: 02-17-2023 take 1 tablet by mouth once daily Thyroid (Pork) ([place] Thyroid) 30 mg tablet Discontinued 30 MG PO DAILY October 12, 2022 11:00pm February 17, 2023 8:41am Start: 10-13-2022 take 1 tablet by corbin th once daily Thyroid (Pork) ([place] Thyroid) 30 mg tablet Active 30 MG [...] By: Shawn Kan on 11-11-2024 Study report [facility] Imaging Services [address] [place] [address] Brain W/WO Contrast MR#: [id number] Acct: [id number] Name: JAYLIN OLIVEROS Rep #: [id number] : 1955 F 69 From: Db Kan MD PCP: Dr. Chauncey Anderson, DO Status: REG CLI Study:Brain W/WO Contrast Date of Exam: 11/10/24 Exam# [id number] Ordering Dr: Chauncey Anderson DO PROCEDURE: MRI [...] commonly seen with migraine headaches. Reading Location: [facility] CC: Dr. Chauncey Anderson DO ~ Television Station Manager: Signed [facility] Brain W/WO Contraston 2024 Brain W/WO Contrast [facility] Imaging Services [address] [place], [place] [id number] Brain W/WO Contrast MR#: [id number] Acct: [id number] Name: JAYLIN OLIVEROS Rep #: [id number] : 1955 F 69 From: Shawn Kan MD PCP: Dr. Chauncey Anderson DO Status: REG CLI Study: Brain W/WO Contrast Date of Exam: 11/10/24 Exam# [id number] Ordering Dr: Chauncey Anderson DO PROCEDURE: MRI [...] commonly seen with migraine headaches. Reading Location: [facility] CC: Dr. Chauncey Anderson, Television Station Manager: Signed Normal [facility] OT D/C of Non Returning Pton 11-09-2024 OT D/C of Non Returning Pt [facility] Occupational Therapy [facility] [address] [place] [address] [address] [place] [address] / REHABILITATION SERVICES DISCHARGE SUMMARY MR#: [id number] Acct: [id number] Name: JAYLIN OLIVEROS Rep #: [id number] : 1955 69 From: Harper Shields OTR/L, [...] found appropriate by the physician. Thank you! EKEGAN Orr, CHT 11/09/24 1319 CC: SILVINO Greer; Dr. Chauncey Anderson, [place] Signed Normal [facility] OT D/C of Non Returning Pton 10-27-2024 OT D/C of Non Returning Pt [facility] Occupational Therapy [facility] [address] [place] [address] / REHABILITATION SERVICES DISCHARGE SUMMARY MR#: [id number] Acct: [id number] Name: JAYLIN OLIVEROS Rep #: [id number] : 1955 69 From: Harper VANEGAS/Jojo, T [...] Greer; Dr. Chauncey Anderson, [place] Signed Normal [facility] Neurology Visit Reporton Neurology Visit Report [facility] [address] [place] [address], [address] [place] [address] OFFICE VISIT Date of Service: 08/29/24 MR#: [id number] Acct: [id number] Name: JAYLIN OLIVEROS Rep #: [id number] : 1955 Provider: Dr. Jules escobar MD Age/Sex: 68/F [place] [facility] Status: Signed [facility] Chief Complaint: Details: Interim History: [...] surgery was offered. She is seeing a spray painting machine operator, Dr. Renee, and is prescribed pregabalin and [...] She states that on evaluation by a roof truss builder she was not felt to have psoriatic arthritis however on evaluation by her cushion gum applicator she was felt to have psoriatic arthritis. [...] content not included)... Normal [facility] OT General Evaluationon 05-3 OT General Evaluation [facility] Occupational [facility] [address] [place] [address] / REHABILITATION SERVICES INITIAL EVALUATION MR#: [id number] Acct: [id number] Name: JAYLIN OLIVEROS Rep #: [id number] : 1955 68 From: Harper VANEGAS/ELIA Uribe Referring Dr.: SILVINO Greer Status: REG R CR Insurance: MEDICARE PART A B Eval Date: [facility] Patient's Visit Information Visit Information Visit Information: [...] Goals Goal:: pt will demo the a immunologist strength of 30# or greater to return [...] limited ROM and weakness as any resistive immunologist causes pain. pt demo need for skilled [...] to be FAXED BACK to us at [phone] for Medicare purposes. Please let me know if there are questions or concerns regarding this plan of care. Physician Signature: D ate: 07/22/24 1139 CC: SILVINO Greer; Dr. Chauncey Anderson, [place] Signed For Medicare only, by signing this I certify the plan of care. Physicians Signature Date [facility] Breast imaging reportOrdered By: Oleksandr Magallanes on 05-05-2024 Study report [facility] Imaging Services [address] [place], [place] [address] SCRN MAMM (CAD)W/LIZ BILAT MR#: [id number] Acct: [id number] Name: JAYLIN OLIVEROS Rep #: [id number] : 1955 F 68 From: Migue Magallanes MD PCP: Dr. Chauncey Anderson DO Status: [facility] CLI Study:SCRN MAMM (CAD)W/LIZ BILAT Date of Exa m: 05/05/24 Exam# [id number] Ordering Dr: Chauncey Anderson DO PROCEDURE: SCRN [...] of the results by letter. Reading Location: [id number] CC: Dr. Chauncey Anderson DO ~ Television Station Manager: Signed [facility] SCRN MAMM (CAD)W/LIZ BILATo n 05-05-2024 SCRN MAMM (CAD)W/LIZ BILAT [facility] Imaging Services [address] [place] [address] SCRN MAMM (CAD)W/LIZ BILAT MR#: [id number] Acct: [id number] Name: JAYLIN OLIVEROS Rep #: [id number] : 1955 F 68 From: Oleksandr mcwilliams MD PCP: Dr. Chauncey Anderson DO Status: REG CLI Study: SCRN MAMM (CAD)W/LIZ BILAT Date of Exam: 04/23 05/17 Exam# [id number] Ordering Dr: Chauncey Anderson DO PROCEDURE: SCRN [...] of the results by letter. Reading Location: [id number] CC: Dr. Chauncey Anderson DO Television Station Manager: Signed Normal [facility] Basic Metabolic Profile (BMP )on 04-30-2024 BUN/CRE 15.6 RATIO Normal 10-[address] [facility] Comment on above: Performed By: #### L 506.0400, L501.9520, L500.2500, L501.5200 #### [facility] Laboratory [address] [place], [address] Calcium [Mass/Vol] 9.7 mg/dL Normal 7.6-11.0 [facility] Comment on above: Performed By: #### L 506.0400, L501.9520, L500.2500, L501.5200 #### [facility] [address] [place], [address] Chloride [Moles/Vol] 100 mmol/L Normal 98-108 [facility] Comment on above: Performed By: #### L 506.0400, L501.9520, L500.2500, L501.5200 #### [facility] [address] [place], [address] CO2 [Moles/Vol] 24.4 mmol/L Normal 21.0-32.[address] [facility] Comment on above: Performed By: #### L 506.0400, L501.9520, L500.2500, L501.5200 #### [facility] [address] [place], [address] Creatinine [Mass/Vol] 0.74 mg/dL Normal 0.70-1.20 [facility] Comment on above: Performed By: #### L 506.0400, L501.9520, L500.2500, L501.5200 #### [facility] [address] [place], [address] GAP 15 Normal 5-[address] [facility] Comment on above: Performed By: #### L 506.0400, L501.9520, L500.2500, L501.5200 #### [facility] [address] [place], [address] GFR/1.73 sq M.predicted among non-blacks MDRD (S/P/Bld) [Vol rate/Area] 89 mL/min/{1.73_m2} Normal >[address] [facility] Comment on above: Result Comment: mL/m in/1.73m2 CKD-EPI Creatinine Equation (2020) Performed By: #### L 506.0400, L501.9520, L500.2500, L501.5200 #### [facility] [address] [place], [address] Glucose [Mass/Vol] 89 mg/dL Normal 70-99 [facility] Comment on above: Performed By: #### L 506.0400, L501.9520, L500.2500, L501.5200 #### [facility] [address] [place], [address] Potassium [Moles/Vol] 4.2 mmol/L Normal 3.3-5.1 [facility] Comment on above: Performed By: #### L 506.0400, L501.9520, L500.2500, L501.5200 #### [facility] [address] [place], [address] Sodium [Moles/Vol] 139 mmol/L Normal 133-145 [facility] Comment on above: Performed By: #### L 506.0400, L501.9520, L500.2500, L501.5200 #### [facility] [address] [place], [address] Urea nitrogen [Mass/Vol] 12 mg/dL Normal 4-[address] [facility] Comment on above: Performed By: #### L 506.0400, L501.9520, L500.2500, L501.5200 #### [facility] [address] [place], [address] Magnesiumon 04-30-2024 Magnesium [Mass/Vol] 2.3 mg/dL High 1.5-2.2 [facility] Comment on above: Performed By: #### L 506.0400, L501.9520, L500.2500, L501.5200 #### [facility] [address] [place], [address] T4 Free Directon 04-30-2024 T4 FREE DIRECT 1.20 ng/dL Normal 0.76-1.[address] [facility] Comment on above: Performed By: #### L 506.0400, L501.9520, L500.2500, L501.5200 #### [facility] [address] [place], [address] Anion gap in Serum or Plasma Ordered By: Chauncey Anderson on 04-29-2024 Anion gap [Moles/Vol] 15 mmol/L 5-15 [facility] BUN/creatinine ratioOrdered By: Chauncey Anderson on 04-29-2024 Urea nitrogen/Creatinine [Mass ratio] 15.6 mg/mg 10-[address] [facility] Carbon dioxide, total [Moles /volume] in Central venous bloodOrdered By: Chauncey Anderson on 04-29-2024 CO2 [Moles/Vol] 24.4 mmol/L 21.0-32.[address] [facility] Chloride assayOrdered By: Mignon Anderson on 04-29-2024 Chloride [Moles/Vol] 100 mmol/L 98-108 [facility] GFR/1.73 sq M.predicted asael g non-blacks MDRD (S/P/Bld) [Vol rate/Area]Ordered By: Chauncey Anderson on 04-29-2024 Estimated GFR (MDRD) Non-Af Amer 89 >[address] [facility] Comment on above: mL/min/1.73m2 CKD-EP I Creatinine Equation (2020) Magnesium (Unsp spec) [Mass/ Vol]Ordered By: Chauncey Anderson on 04-29-2024 Magnesium [Mass/Vol] 2.3 mg/dL High 1.5-2.2 [facility] Potassium (Unsp spec) [Mass/ Vol]Ordered By: Chauncey Anderson on 04-29-2024 Potassium [Moles/Vol] 4.2 mmol/L 3.3-5.1 [facility] Serum creatinine measurement (mass/volume)Ordered By: Cahuncey Anderson on 04-29-2024 Creatinine [Mass/Vol] 0.74 mg/dL 0.70-1.20 [facility] Serum glucose measurement (m ass/volume)Ordered By: Chanucey Anderson on 04-29-2024 Glucose [Mass/Vol] 89 mg/dL 70-99 [facility] Serum or plasma calcium kingsley urement (mass/volume)Ordered By: Chauncey Anderson on 04-29-2024 Calcium [Mass/Vol] 9.7 mg/dL 7.6-11.0 [facility] Serum or plasma urea nitroge n measurement (mass/volume)Ordered By: Chauncey Anderson on 04-29-2024 Urea nitrogen [Mass/Vol] 12 mg/dL 4-[address] [facility] Sodium levelOrdered By: Chauncey Anderson on 04-29-2024 Sodium [Moles/Vol] 139 mmol/L 133-145 [facility] T4 freeOrdered By: Chauncey nuno on 04-29-2024 Free T4 [Mass/Vol] 1.20 ng/dL 0.76-1.46 [facility] TSH DL <= 0.005 mIU/L QnOrde red By: Chauncey Anderson on 04-29-2024 Thyroid Stimulating Hormone (TSH) 0.668 uIU/mL 0.300-4.[address] [facility] Thyroid Stim Hormone (TSH)on 04-29-2024 TSH 0.668 uIU/mL Normal 0.300-4.[address] [facility] Comment on above: Performed By: #### L 506.0400, L501.9520, L500.2500, L501.5200 #### [facility] [address] [place], [place], [address] Neurology Visit Reporton Neurology Visit Report [facility] [address] [place] [address], [address] [place], [place] [address] OFFICE VISIT Date of Service: 03/03/24 MR#: [id number] Acct: [id number] Name: JAYLIN OLIVEROS Rep #: [id number] : 1955 Provider: Dr. Jules escobar MD Age/Sex: 68/F [place] [facility] [place] Status: Signed HPI [facility] Chief Complaint: Details: Interim History: Jaylni returns for follow-up visit. She has a [...] surgery was offered. She is seeing a spray painting machine operator, Dr. Renee, and is prescribed pregabalin and [...] She states that on evaluation by a roof truss builder she was not felt to have psoriatic [...] content not included)... Normal [facility] Spine Cervical (Routine)on Spine Cervical (Routine) [facility] Imaging Services [address] [place] [address] Spine Cervical (Routine) MR#: [id number] Acct: [id number] Name: JAYLIN OLIVEROS Rep #: [id number] : 1955 F 68 From: Cory Canales MD PCP: Dr. Chauncey Anderson, DO Status: REG CLI Study: Spine Cervical (Routine) Date of Exam: Exam# [id number] Ordering Dr: Jules Payne MD [id number] EXAM: MR CERVICAL SPINE WITHOUT INTRAVENOUS CONTRAST [...] 9:20 EST Reading Location ID and State: [facility] / [place] Tel , Service support , CC: Dr. Chauncey Anderson DO; Dr. Jules Payne MD Television Station Manager: Signed Normal [facility] Neurology Visit Reporton Neurology Visit Report [facility] [address] [place], [address] [place] [address] OFFICE VISIT Date of Service: 12/21/23 MR#: [id number] Acct: [id number] Name: JAYLIN OLIVEROS Rep #: [id number] : 1955 Provider: Dr. Jules escobar MD Age/Sex: 68/F Location[place] [facility] [place] Status: Signed HPI [facility] Chief Complaint: Details: Interim History: [...] surgery was offered. She is seeing a spray painting machine operator, Dr. Renee, and is prescribed pregabalin and [...] content not included)... Normal [facility] Aldolase ser/plasOrdered By: Jules Payne on 10-14-2022 Aldolase [Catalytic activity/Vol] 3.8 mU/mL 3.3-10.[address] [facility] Basophil percentageOrdered B y: Jules Payne on 10-14-2022 Basophil percentage Not Reportable [facility] Chloride [Moles/Vol] 105 mmol/L 98-107 [facility] Glucose [Mass/Vol] 100 mg/dL 74-106 [facility] Comment on above: Fasting Glucose resu lt from 100 to 125 mg/dL suggests IMPAIRED HOMEOSTASIS per A.D.A. criteria. Potassium [Moles/Vol] 3.8 mmol/L 3.5-5.1 [facility] Sodium [Moles/Vol] 139 mmol/L 136-145 [facility] Erythrocyte sedimentation ra teOrdered By: Jules Payne on 10-14-2022 ESR (Bld) [Velocity] 7 mm/h 0-30 [facility] - Chemistry and C hemistry - challengeOrdered By: Jules Payne on 10-14-2022 CK [Catalytic activity/Vol] 38 U/L 26-[address] [facility] CO2 [Moles/Vol] 27.0 mmol/L 21.0-32.[address] [facility] Cobalamin (Vitamin B12) [Mass/Vol] 406 pg/mL 211-[address] [facility] Myoglobin [Mass/Vol] 27 ng/mL 25-58 [facility] Comment on above: Performed at: [facility] [address] [id number] Director: Maikel Zhang PhD, Phone: [phone] at: - [facility] [id number] Director: Ofelia Gonzales MD, Phone: [phone] Urea nitrogen/Creatinine [Mass ratio] 23.7 mg/mg 10-[address] [facility] No Panel InformationOrdered By: Jules Payne on 10-14-2022 Anti-Nuclear Antibody Screen Negative Negative [facility] Comment on above: Performed at: [facility] [address] [id number] Director: Maikel Zhang PhD, Phone: [phone] Centromere B Antibody Not Reportable [facility] Estimated GFR (MDRD) Amer 131 mL/min >[address] [facility] Comment on above: GFR Calc Estimated GFR (MDRD) Non-Af Amer 108 mL/min >[address] [facility] Comment on above: Non- GFR Calc Free Lambda Light Chains, Quant 12.5 mg/L 5.7-26.[address] [facility] WRECKING MECHANIC Antibody Not Reportable [facility] Whole Blood Vitamin B1 Level 175.0 nmol/L 66.5-200.[address] [facility] Serum DNA double strand anti body assay (units/volume)Ordered By: Jules Payne on 10-14-2022 DNA double strand Ab Qn (S) Not Reportable [facility] Serum Alexa-1 antibody assay (u nits/volume)Ordered By: Jules Payne on 10-14-2022 Alexa-1 extractable nuclear Ab Qn (S) Not Reportable [facility] Serum Scl-70 extractable nuc lear antibody assay (units/volume)Ordered By: Jules Payne on 10-14-2022 SCL-70 extractable nuclear Ab Qn (S) Not Reportable [facility] Serum Bassett extractable nucl ear antibody detectionOrdered By: Jules Payne on 10-14-2022 Bassett extractable nuclear Ab Ql (S) Not Reportable [facility] Serum immunoglobulin kappa l ight chains/immunoglobulin lambda light chains mass ratioOrdered By: Jules Payne on 10-14-2022 Immunoglobulin light chains.kappa/Immunoglob ulin light chains.lambda (S) [Mass ratio] 1.15 0.26-1.[address] [facility] Serum or plasma C reactive p rotein measurement (mass/volume)Ordered By: Jules Payne on 10-14-2022 CRP [Mass/Vol] 6.85 mg/L 0.0-3.[address] [facility] Comment on above: C-Reactive Protein ( CRP) provides useful information for thediagnosis, therapy and monitoring of inflammatory processesand associated diseases. For the evaluation of Relative Riskfor Cardiovascular Disease, a High Sensitivity CRP (HSCRP)should be ordered. Serum or plasma calcium kingsley urement (mass/volume)Ordered By: Jules Payne on 10-14-2022 Calcium [Mass/Vol] 9.2 mg/dL 8.5-10.1 [facility] Serum or plasma creatinine m easurement (mass/volume)Ordered By: Jules Payne on 10-14-2022 Creatinine [Mass/Vol] 0.59 mg/dL 0.55-1.02 [facility] Comment on above: The validity of the calculated GFR & GFRAA in patients over 70 years has not been determined. Clinical correlation is essential. Serum or plasma folate measu rement (mass/volume)Ordered By: Jlues Payne on 10-14-2022 Folate [Mass/Vol] 28.70 ng/mL 3.1-55.4 [facility] Serum or plasma immunoglobul in kappa light chains measurement (mass/volume)Ordered By: Jules [facility] on 10-14-2022 Immunoglobulin light chains.kappa [Mass/Vol] 14.4 mg/L 3.3-19.[address] [facility] Serum or plasma urea nitroge n measurement (mass/volume)Ordered By: Jules Payne on 10-14-2022 Urea nitrogen [Mass/Vol] 14 mg/dL 7-[address] [facility] Serum rheumatoid factor dete ctionOrdered By: Jules Payne on 10-14-2022 Rheumatoid factor Ql (S) < 10.0 IU/mL <[address] [facility] Thin prep Papanicolaou smear with manual screeningOrdered By: Jules [facility] on 10-14-2022 Thin prep Papanicolaou smear with manual screening 7 5-[address] [facility] Absolute lymphocyte countOrd ered By: Yas Silva on 09-04-2022 Lymphocytes Auto (Unsp spec) [#/Vol] 1.94 10*3/uL 0.83-4.[address] [facility] Basophil percentageOrdered B y: Yas Silva on 09-04-2022 Basophils/100 WBC (Bld) 0.5 % 0-1 [facility] Bilirubin [Mass/Vol] 0.40 mg/dL 0.20-1.00 [facility] Comment on above: For patients on eltr ombopag therapy, use of Dimension [place] TBIL is not recommended. Chloride [Moles/Vol] 105 mmol/L 98-107 [facility] Cholesterol [Mass/Vol] 194 mg/dL <200 [facility] Comment on above: <200 mg/dL Desirable 200-240 mg/dL Borderline >240 mg/dL High Risk Eosinophils/100 WBC (Bld) 5.7 % 0-[address] [facility] Glucose [Mass/Vol] 93 mg/dL 74-106 [facility] Neutrophils (Bld) [#/Vol] 2.8 10*3/uL 2.0-7.[address] [facility] Neutrophils/100 WBC (Bld) 50.7 % 47-[address] [facility] Potassium [Moles/Vol] 3.6 mmol/L 3.5-5.1 [facility] Protein [Mass/Vol] 6.7 g/dL 6.4-8.2 [facility] Sodium [Moles/Vol] 138 mmol/L 136-145 [facility] Triglyceride [Mass/Vol] 224 mg/dL <199 [facility] Comment on above: The drugs N-Acetylcy steine and Metamizole may falsely depress this assay.Serum Triglycerides Reference Interval Normal <150 mg/dL Borderline high 150 - 199 mg/dL High 200 - 499 mg/dL Very High > or = 500 mg/dL WBC (Bld) [#/Vol] 5.6 10*3/uL 4.4-11.0 [facility] Blood erythrocytes count (nu mber/volume)Ordered By: Yas Silva on 09-04-2022 RBC (Bld) [#/Vol] 4.28 10*6/uL 4.2-5.4 [facility] Blood hemoglobin measurement (mass/volume)Ordered By: Yas Silva on 09-04-2022 Hemoglobin (Bld) [Mass/Vol] 12.0 g/dL 12.0-15.[address] [facility] Blood lymphocytes/100 leukoc ytesOrdered By: Yas Silva on 09-04-2022 Lymphocytes/100 WBC (Bld) 34.8 % 19-[address] [facility] Blood monocytes/100 leukocyt esOrdered By: Yas Silva on 09-04-2022 Monocytes/100 WBC (Bld) 7.9 % 0-10 [facility] Blood platelet mean volumeOr dered By: Yas Silva on 09-04-2022 Platelet mean volume (Bld) [Entitic vol] 10.3 fL 6.2-12.[address] [facility] Cerebrospinal fluid Borrelia burgdorferi 18kd IgG antibody detection by immunoblotOrdered By: Yas Silva on 09-04-2022 B. burgdorferi 18kD IgG IB Ql (CSF) Absent . [facility] Cerebrospinal fluid Borrelia burgdorferi 23kD IgG antibody detection by immunoblotOrdered By: Yas Silva on 09-04-2022 B. burgdorferi 23kD IgG IB Ql (CSF) Absent . [facility] Cerebrospinal fluid Borrelia burgdorferi 23kD IgM antibody detection by immunoblotOrdered By: Yas Silva on 09-04-2022 B. burgdorferi 23kD IgM IB Ql (CSF) Present . [facility] Cerebrospinal fluid Borrelia burgdorferi 28kD IgG antibody detection by immunoblotOrdered By: Yas Silva on 09-04-2022 B. burgdorferi 28kD IgG IB Ql (CSF) Absent . [facility] Cerebrospinal fluid Borrelia burgdorferi 39kD IgG antibody detection by immunoblotOrdered By: Yas Silva on 09-04-2022 B. burgdorferi 39kD IgG IB Ql (CSF) Absent . [facility] Cerebrospinal fluid Borrelia burgdorferi 39kD IgM antibody detection by immunoblotOrdered By: Yas Silva on 09-04-2022 B. burgdorferi 39kD IgM IB Ql (CSF) Absent . [facility] Cerebrospinal fluid Borrelia burgdorferi 41kD IgM antibody detection by immunoblotOrdered By: Yas Silva on 09-04-2022 B. burgdorferi 41kD IgM IB Ql (CSF) Absent . [facility] Determination of erythrocyte mean corpuscular volume (MCV)Ordered By: Yas Silva on 09-04-2022 MCV (RBC) [Entitic vol] 87.4 fL 81-99 [facility] Hematocrit Auto (Bld) [Volum e fraction]Ordered By: Yas Silva on 09-04-2022 Hematocrit (Bld) [Volume fraction] 37.4 % 37-[address] [facility] Laboratory - Chemistry and C hemistry - challengeOrdered By: Minter Ricardo on 09-04-2022 ALP [Catalytic activity/Vol] 79 U/L 45-[address] [facility] ALT [Catalytic activity/Vol] 22 U/L 13-[address] [facility] CO2 [Moles/Vol] 28.0 mmol/L 21.0-32.[address] [facility] Free T4 [Mass/Vol] 0.87 ng/dL 0.76-1.46 [facility] Globulin (S) [Mass/Vol] 3.5 g/dL 2.2-4.2 [facility] Urea nitrogen/Creatinine [Mass ratio] 21.5 mg/mg 10-[address] [facility] Laboratory - Hematology and Cell countsOrdered By: Yas Silva on 09-04-2022 Erythrocyte distribution width (RBC) [Entitic vol] 40.8 fL 35.1-43.[address] [facility] Erythrocyte distribution width (RBC) [Ratio] 12.8 % 11.6-14.[address] [facility] Immature granulocytes/100 WBC (Bld) 0.400 % 0.0-0.[address] [facility] Comment on above: IG% - Immature Granu locytes (promyelocytes, myelocytes and metamyelocytes) > 1% indicates that a LEFT SHIFT is Present. MCH (RBC) [Entitic mass] 28.0 pg 27.0-32.[address] [facility] Nucleated RBC/100 WBC (Bld) [Ratio] 0 % 0-[address] [facility] MCHC Auto (RBC) [Mass/Vol]Or dered By: Yas Silva on 09-04-2022 MCHC (RBC) [Mass/Vol] 32.1 g/dL 32-36 [facility] No Panel InformationOrdered By: Yas Silva on 09-04-2022 Estimated GFR (MDRD) Amer 128 mL/min >[address] [facility] Comment on above: GFR Calc Estimated GFR (MDRD) Non-Af Amer 105 mL/min >[address] [facility] Comment on above: Non- GFR Calc Lyme Disease IgG Ab 30 kDa Band Absent . [facility] Lyme Disease IgG Ab 93 kDa Band Absent . [facility] Lyme Disease IgG West Blot Interp Negative . [facility] Comment on above: Positive: 5 of the f ollowing Borrelia-specific bands: 18,23,28,30,39,41,45,58, 66, and 93. Negative: No bands or banding patterns which do not meet positive criteria. Lyme Disease IgM Ab (Western Blot) Negative . [facility] Comment on above: Note: An equivocal o r positive EIA result followed by anegative Line Blot result is considered NEGATIVE. Anequivocal or positive EIA result followed by a positiveLine Blot is considered POSITIVE by the CDC.Positive: 2 of the following bands: 23,39 or 41Negative: No bands or banding patterns which do not meetpositive criteria.Criteria for positivity are those recommended byCDC/ASTPHLD. p23=Osp C, h36=lrdlrvgkpCinm:Sera from individuals with the following may cross [...] testingto improve the sensitivity and specificity of testing.[facility] offers test code 590393 Lyme Disease Serology withReflex to aid in the diagnosis of Lyme Disease.Performed at: [address] [id number] Director: Ofelia Gonzales MD, Phone: [phone] Thyroid Stimulating Hormone (TSH) 1.44 uIU/mL 0.358-3.[address] [facility] Platelets bldOrdered By: Reji Silva on 09-04-2022 Platelets (Bld) [#/Vol] 248 10*3/uL 150-[address] [facility] Serum Borrelia burgdorferi 4 1kD IgG antibody detection by immunoblotOrdered By: Yas Sliva on 09-04-2022 B. burgdorferi 41kD IgG IB Ql (S) Absent . [facility] Serum Borrelia burgdorferi 6 6kD IgG antibody detection by immunoblotOrdered By: Yas Silva on 09-04-2022 B. burgdorferi 66kD IgG IB Ql (S) Absent . [facility] Serum heterophile antibody d etectionOrdered By: Yas Silva on 09-04-2022 Heterophile Ab Ql (S) Negative Negative [facility] Serum or plasma albumin kingsley urement (mass/volume)Ordered By: Yas Silva on 09-04-2022 Albumin [Mass/Vol] 3.2 g/dL 3.2-5.0 [facility] Serum or plasma albumin/glob ulin mass ratioOrdered By: Yas Silva on 09-04-2022 Albumin/Globulin [Mass ratio] 0.9 {ratio} 0.9-2.[address] [facility] Serum or plasma calcium kingsley urement (mass/volume)Ordered By: Yas Silva on 09-04-2022 Calcium [Mass/Vol] 8.6 mg/dL 8.5-10.1 [facility] Serum or plasma cholesterol in HDL measurement (mass/volume)Ordered By: Yas Silva on 09-04-2022 Cholesterol in HDL [Mass/Vol] 36 mg/dL >[address] [facility] Comment on above: The drugs N-Acetylcy steine and Metamizole may falsely depress this assay. Reference Range HDL <40 mg/dL Low HDL Cholesterol HDL >or= 60 mg/dL High HDL Cholesterol Serum or plasma cholesterol in VLDL measurement (mass/volume)Ordered By: Yas Silva on 09-04-2022 Cholesterol in VLDL [Mass/Vol] 45 mg/dL 5-[address] [facility] Serum or plasma creatinine m easurement (mass/volume)Ordered By: Yas Silva on 09-04-2022 Creatinine [Mass/Vol] 0.60 mg/dL 0.55-1.02 [facility] Comment on above: The validity of the calculated GFR & GFRAA in patients over 70 years has not been determined. Clinical correlation is essential. Serum or plasma low density lipoprotein (LDL) cholesterol measurement (mass/volume)Ordered By: Yas Silva on 09-04-2022 Cholesterol in LDL [Mass/Vol] 113 mg/dL 0-[address] [facility] Serum or plasma urea nitroge n measurement (mass/volume)Ordered By: Yas Silva on 09-04-2022 Urea nitrogen [Mass/Vol] 13 mg/dL 7-[address] [facility] Synovial fluid Borrelia magnus dorferi 45kD IgG antibody detection by immunoblotOrdered By: Yas Silva on 09-04-2022 B. burgdorferi 45kD IgG IB Ql (Syn fld) Absent . [facility] Synovial fluid Borrelia magnus dorferi 58kD IgG antibody detection by immunoblotOrdered By: Yas Silva on 09-04-2022 B. burgdorferi 58kD IgG IB Ql (Syn fld) Absent . [facility] Thin prep Papanicolaou smear with manual screeningOrdered By: Yas Silva on 09-04-2022 Thin prep Papanicolaou smear with manual screening 18 U/L 15-[address] [facility] Thin prep Papanicolaou smear with manual screening 5 5-[address] [facility] Basophil percentageon 2021 Bilirubin [Mass/Vol] 0.40 mg/dL 0.20-1.00 [facility] Work Phone: Comment on above: For patients on eltr ombopag therapy, use of Dimension [place] TBIL is not recommended. Cholesterol [Mass/Vol] 190 mg/dL <200 [facility] Work Phone: Comment on above: <200 mg/dL Desirable 200-240 mg/dL Borderline >240 mg/dL High Risk Protein [Mass/Vol] 7.5 g/dL 6.4-8.2 [facility] Work Phone: Triglyceride [Mass/Vol] 368 mg/dL <199 [facility] Work Phone: Comment on above: The drugs N-Acetylcy steine and Metamizole may falsely depress this assay.Serum Triglycerides Reference Interval Normal <150 mg/dL Borderline high 150 - 199 mg/dL High 200 - 499 mg/dL Very High > or = 500 mg/dL Direct bilirubinon 2 Bilirubin.direct [Mass/Vol] 0.07 mg/dL 0.00-0.[address] [facility] Work Phone: Laboratory - Chemistry and C hemistry - challengeon 11-16-2021 ALP [Catalytic activity/Vol] 98 U/L 45-[address] [facility] Work Phone: ALT [Catalytic activity/Vol] 21 U/L 13-[address] [facility] Work Phone: Globulin (S) [Mass/Vol] 3.8 g/dL 2.2-4.2 [facility] Work Phone: Serum or plasma albumin kingsley urement (mass/volume)on 11-16-2021 Albumin [Mass/Vol] 3.7 g/dL 3.2-5.0 [facility] Work Phone: Serum or plasma cholesterol in HDL measurement (mass/volume)on 11-16-2021 Cholesterol in HDL [Mass/Vol] 35 mg/dL >[address] [facility] Work Phone: Comment on above: The drugs N-Acetylcy steine and Metamizole may falsely depress this assay. Reference Range HDL <40 mg/dL Low HDL Cholesterol HDL >or= 60 mg/dL High HDL Cholesterol Serum or plasma cholesterol in VLDL measurement (mass/volume)on 11-16-2021 Cholesterol in VLDL [Mass/Vol] 74 mg/dL 5-[address] [facility] Work Phone: Serum or plasma low density lipoprotein (LDL) cholesterol measurement (mass/volume)on 11-16-2021 Cholesterol in LDL [Mass/Vol] 81 mg/dL 0-[address] [facility] Work Phone: Thin prep Papanicolaou smear with manual screeningon 11-16-2021 Thin prep Papanicolaou smear with manual screening 15 U/L 15-[address] [facility] Work Phone: CNOVon 03-30-2019 CNOV Office Visit (UCWSTR) JAYLIN OLIVEROS ([id number]) 1955 F Date Time Provider Department 03/30/19 [...] mg ORAL tablet Take one(1) tablet daily ([id number]), prn - COCONUT OIL ORAL Take by [...] A STREPTOCOCCUS BY PCR [SQGASPCR] Order #: [id number] RAPID STREP TEST B/O [2999606] Order #: [id number] Prescriptions as of 03/30/2019 Sig: CINNAMON ORAL [...] by SHANNAN CORTEZ PA-C on 03/30/19 Normal [facility] A Strep by PCRon 03-30 GAS Specimen Source Throat Swab Normal [facility] Comment on above: Performed By: #### G ASPCR #### [facility] [address] [id number] Group A Strep PCR Negative Normal [facility] Comment on above: Result Comment: This test was developed and its performance characteristics determined by [facility]'s [facility] Pathology and Laboratory Medicine [place] ( [facility]). It has not been cleared or approved by the FDA. [facility] is regulated under CLIA as qualified to perform high complexity testing. This test is used for clinical purposes. It should not be regarded as investigational or for research. Performed By: #### G ASPCR #### [facility] [employer] [address] [id number] PROGRESSon 03-30-2019 PROGRESS HNO ID: [id number] Author: Shannan Cortez Service: ? Author Type: Physician Head Orthopedic Team Physician Type: Progress Notes Filed: 03/30/2019 3:56 PM [...] mg ORAL tablet Take one(1) tablet daily ([id number]), prn - COCONUT OIL ORAL Take by [...] STREP TEST B/O Shannan Cortez PA-C Normal [facility] Vital Signs Date Time Vital Sign Value Performing Clinician Rick louis 08-29-2024 08:21-0400 Body temperature 98 [degF] Dr. Chauncey Anderson DO Work Phone: [facility] 08-29-2024 08:21-0400 Body weight 75.[address] Chauncey Anderson DO Work Phone: [facility] 08-29-2024 08:21-0400 Diastolic blood pressure 83 mm[Hg] Dr. Chauncey Anderson DO Work Phone: [facility] 08-29-2024 08:21-0400 Heart rate 75 /min Dr. Chauncey Anderson DO Work Phone: [facility] 08-29-2024 08:21-0400 Respiratory rate 17 /min Dr. Chauncey Anderson DO Work Phone: [facility] 08-29-2024 08:21-0400 SaO2% (BldA) [Mass fraction] 75 % Dr. Chauncey Anderson DO Work Phone: [facility] 08-29-2024 08:21-0400 Systolic blood pressure 134 mm[Hg] Dr. Chauncey Anderson DO Work Phone: [facility] 05-23-2024 13:00-0400 Body height 157.[address] Chauncey Anderson DO Work Phone: [facility] 05-23-2024 13:00-0400 Body weight 81.[address] Chauncey Anderson DO Work Phone: [facility] 04-13-2024 15:02-0500 Body height 157.[address] Chauncey Anderson DO Work Phone: [facility] 04-13-2024 15:02-0500 Body weight 83.[address] Chauncey Anderson DO Work Phone: [facility] 03-03-2024 08:22-0500 Body mass index (BMI) [Ratio] 34.4 kg/m2 Dr. Chauncey Anderson DO Work Phone: [facility] 03-03-2024 08:22-0500 Body temperature 97.7 [degF] Dr. Chauncey Anderson DO Work Phone: [facility] 03-03-2024 08:22-0500 Body weight 85.[address] Chauncey Anderson DO Work Phone: [facility] 03-03-2024 08:22-0500 Diastolic blood pressure 82 mm[Hg] Dr. Chauncey Anderson DO Work Phone: [facility] 03-03-2024 08:22-0500 Heart rate 76 /min Dr. Chauncey Anderson DO Work Phone: [facility] 03-03-2024 08:22-0500 Respiratory rate 16 /min Dr. Chauncey Anderson DO Work Phone: [facility] 03-03-2024 08:22-0500 SaO2% (BldA) [Mass fraction] 95 % Dr. Chauncey Anderson DO Work Phone: [facility] 03-03-2024 08:22-0500 Systolic blood pressure 138 mm[Hg] Dr. Chauncey Anderson DO Work Phone: [facility] 06-22-2023 07:56-0400 Body height 157.[address] Chauncey Anderson Work Phone: [facility] 06-22-2023 07:56-0400 Body mass index (BMI) [Ratio] 35.4 kg/m2 Dr. Chauncey Anderson Work Phone: [facility] 06-22-2023 07:56-0400 Body temperature 97.8 [degF] Dr. Chauncey Anderson Work Phone: [facility] 06-22-2023 07:56-0400 Body weight 87.[address] Chauncey Anderson Work Phone: [facility] 06-22-2023 07:56-0400 Diastolic blood pressure 78 mm[Hg] Dr. Chauncey Anderson Work Phone: [facility] 06-22-2023 07:56-0400 Heart rate 85 /min Dr. Chauncey Anderson Work Phone: [facility] 06-22-2023 07:56-0400 Respiratory rate 17 /min Dr. Chauncey Anderson Work Phone: [facility] 06-22-2023 07:56-0400 SaO2% (BldA) [Mass fraction] 95 % Dr. Chauncey Anderson Work Phone: [facility] 06-22-2023 07:56-0400 Systolic blood pressure 120 mm[Hg] Dr. Chauncey Anderson Work Phone: [facility] 03-19-2023 15:41-0500 Body height 157.[address] Chauncey Anderson Work Phone: [facility] 03-19-2023 15:41-0500 Body mass index (BMI) [Ratio] 34 kg/m2 Dr. Chauncey Anderson Work Phone: [facility] 03-19-2023 15:41-0500 Body temperature 98 [degF] Dr. Chauncey Anderson Work Phone: [facility] 03-19-2023 15:41-0500 Body weight 84.[address] Chauncey Anderson Work Phone: [facility] 03-19-2023 15:41-0500 Diastolic blood pressure 70 mm[Hg] Dr. Chauncey Anderson Work Phone: [facility] 03-19-2023 15:41-0500 Heart rate 89 /min Dr. Chauncey Anderson Work Phone: [facility] 03-19-2023 15:41-0500 Respiratory rate 17 /min Dr. Chauncey Anderson Work Phone: [facility] 03-19-2023 15:41-0500 SaO2% (BldA) [Mass fraction] 95 % Dr. Chauncey Anderson Work Phone: [facility] 03-19-2023 15:41-0500 Systolic blood pressure 140 mm[Hg] Dr. Chauncey Anderson Work Phone: [facility] 02-17-2023 08:01-0500 Body mass index (BMI) [Ratio] 34.4 kg/m2 Dr. Chauncey Anderson Work Phone: [facility] 02-17-2023 08:01-0500 Body temperature 98 [degF] Dr. Chauncey Anderson Work Phone: [facility] 02-17-2023 08:01-0500 Body weight 85.[address] Chauncey Anderson Work Phone: [facility] 02-17-2023 08:01-0500 Diastolic blood pressure 80 mm[Hg] Dr. Chauncey Anderson Work Phone: [facility] 02-17-2023 08:01-0500 Heart rate 76 /min Dr. Chauncey Anderson Work Phone: [facility] 02-17-2023 08:01-0500 Respiratory rate 17 /min Dr. Chauncey Anderson Work Phone: [facility] 02-17-2023 08:01-0500 SaO2% (BldA) [Mass fraction] 97 % Dr. Chauncey Anderson Work Phone: [facility] 02-17-2023 08:01-0500 Systolic blood pressure 138 mm[Hg] Dr. Chauncey Anderson Work Phone: [facility] 10-13-2022 08:54-0400 Body height 157.[address] Chauncey Anderson Work Phone: [facility] 10-13-2022 08:54-0400 Body mass index (BMI) [Ratio] 34.4 kg/m2 Dr. Chauncey Anderson Work Phone: [facility] 10-13-2022 08:54-0400 Body temperature 97.8 [degF] Dr. Chauncey Anderson Work Phone: [facility] 10-13-2022 08:54-0400 Body weight 85.[address] Chauncey Anderson Work Phone: [facility] 10-13-2022 08:54-0400 Diastolic blood pressure 78 mm[Hg] Dr. Chauncey Anderson Work Phone: [facility] 10-13-2022 08:54-0400 Heart rate 78 /min Dr. Chauncey Anderson Work Phone: [facility] 10-13-2022 08:54-0400 Respiratory rate 16 /min Dr. Chauncey Anderson Work Phone: [facility] 10-13-2022 08:54-0400 SaO2% (BldA) [Mass fraction] 96 % Dr. Chauncey Anderson Work Phone: [facility] 10-13-2022 08:54-0400 Systolic blood pressure 120 mm[Hg] Dr. Chauncey Anderson Work Phone: [facility] Encounters Encounter Date Encounter Type Care Provider Facility Start: 12-09-2024 ambulatory Chauncey Anderson Facility: [facility] Start: 11-10-2024 End: 11-10-[address] Chauncey Anderson DO Work Phone: [facility] Start: 11-10-2024 End: 11-10-[address] Chauncey Anderson DO [facility] Work Phone: Start: 11-10-2024 End: 11-10-2024 ambulatory Chauncey Anderson Facility:[facility] Start: 08-29-2024 End: 08-29-[address] Jules Payne MD -[facility] Work Phone: Start: 08-29-2024 End: 08-29-[address] Chauncey Anderson DO Work Phone: -[facility] Start: 07-26-2024 ambulatory Chauncey Anderson Facility: [facility] Start: 07-22-2024 End: 07-22-2024 Discharged Recurring [...] Anderson DO Work Phone: [facility] Work Phone: Start: 05-05-2024 End: 05-05-[address] Chauncey Anderson DO Work Phone: [facility] Work Phone: Start: 05-05-2024 End: 05-05-[address] Chauncey Anderson DO -[facility] Work Phone: Start: 05-05-2024 End: 05-05-2024 ambulatory Chauncey Anderson Facility:[facility] Start: 05-03-2024 Non-patient / Non-visit Dr. Joanne Ackerman MD -[facility] Work Phone: Start: 05-03-2024 End: 05-03-[address] Chauncey Anderson DO Work Phone: [facility] Work Phone: Start: 05-03-2024 End: 05-03-[address] Chauncey Anderson DO -Pulmonary Services/Neurology Work Phone: Start: 05-03-2024 End: 05-03-2024 ambulatory Chauncey Anderson Facility:[facility] Start: 04-29-2024 End: 04-29-[address] Chauncey Anderson DO Work Phone: [facility] Work Phone: Start: 04-29-2024 End: 04-29-[address] Chauncey Anderson DO -[facility] Work Phone: Start: 04-29-2024 End: 04-29-2024 ambulatory Chauncey Monica Facility:[facility] Start: 04-13-2024 End: 04-22-[address] Chauncey Anderson DO -[facility] Work Phone: Start: 04-13-2024 End: 04-22-20[facility] Start: 03-03-2024 End: 03-03-[address] Jules Payne MD -[facility] Work Phone: Start: 03-03-2024 End: 03-03-2024 ambulatory Chauncey Monica Facility:[facility] Start: 02-23-2024 End: 02-23-[address] Jules Payne MD -[facility] Work Phone: Start: 02-23-2024 End: 02-23-2024 ambulatory Chauncey Monica Facility:[facility] Start: 12-21-2023 End: 12-21-2023 ambulatory [facility] Facility:[facility] Start: 06-29-2023 End: 06-29-[address] Chauncey Anderson Work Phone: [facility] Work Phone: Start: 06-29-2023 End: 06-29-[address] Chauncey Anderson Work Phone: [facility] Work Phone: Start: 06-22-2023 End: 06-22-[address] Chauncey Anderson Work Phone: [facility] Work Phone: Start: 03-31-2023 End: 03-31-[address] Chauncey Anderson Work Phone: [facility] Work Phone: Start: 03-31-2023 End: 03-31-[address] Chauncey Anderson Work Phone: [facility]-Sleep Lab Work Phone: Start: 03-19-2023 End: 03-19-[address] Chauncey Anderson Work Phone: [facility] Work Phone: Start: 02-17-2023 End: 02-17-[address] Chauncey Anderson Work Phone: [facility] Work Phone: Start: 12-10-2022 Non-patient / Non-visit Dr. Mignon Anderson Work Phone: [facility] Start: 12-10-2022 End: 12-10-[address] Chauncey Anderson Work Phone: [facility]-Pulmonary Services/Neurology Work Phone: Start: 12-02-2022 Non-patient / Non-visit Dr. Mignon Anderson Work Phone: [facility] Start: 12-02-2022 End: 12-02-[address] Chauncey Anderson Work Phone: [facility] Work Phone: Start: 12-02-2022 End: 12-02-[address] Chauncey Anderson Work Phone: [facility]-Pulmonary Services/Neurology Work Phone: Start: 11-27-2022 End: 11-27-[address] Chauncey Anderson Work Phone: [facility]-Physical Therapy Work Phone: Start: 10-17-[address] Chauncey Anderson Work Phone: [facility]-Physical Therapy Work Phone: Start: 10-14-2022 End: 10-14-[address] Chauncey Anderson Work Phone: [facility] Work Phone: Start: 10-14-2022 End: 10-14-[address] Chauncey Anderson Work Phone: [facility]-Laboratory, [place] Work Phone: Start: 10-13-2022 End: 10-13-[address] Chauncey Anderson Work Phone: [facility] Work Phone: Start: 09-11-2022 End: 09-11-[address] Chauncey Anderson Work Phone: [facility] [facility], [facility] Work Phone: Start: 09-04-2022 End: 09-04-[address] [facility] Work Phone: Start: 09-04-2022 End: 09-04-2022 Patient encounter procedure [facility]-Laboratory Work Phone: Start: 06-17-2022 Transcribe Orders Chauncey Landa DO Work Phone: [facility] Comment on above: Paresthesia (Primary Dx) Start: 04-02-2022 End: 04-02-[address] [facility] Work Phone: Start: 04-02-2022 End: 04-02-2022 Patient encounter procedure [facility]-MRI - [facility] Start: 03-19-2022 End: 03-19-2022 ambulatory [facility] Work Phone: Start: 03-19-2022 End: 03-19-2022 Patient encounter procedure [facility]-Outpatient Bone Densitometry Start: 02-10-2022 End: 02-10-[address] [facility] Work Phone: Start: 02-10-2022 End: 02-10-2022 Discharged Recurring [facility]-Physical Therapy Start: 11-16-2021 End: 11-16-2021 Patient encounter procedure [facility]-Laboratory Procedures Date Procedure Procedure Detail Performing Clinician Start: 11-10-2024 MRI of brain with contrast Dr. Chauncey Anderson DO Work Phone: Start: 05-05-2024 Screening mammography Yoshi Anderson DO Work Phone: Start: 02-23-2024 MRI of cervical spine Yohsi Anderson DO Work Phone: Start: 06-29-2023 MRI of lumbar spine Dr. Chauncey Anderson Work Phone: Start: 09-11-2022 Ultrasonography of t hyroid and parathyroid Dr. Chauncey Anderson Work Phone: Start: 04-02-2022 MRI of cervical spine Start: 03-19-2022 Dual energy X-ray absorptiometry Start: 03-19-2022 Screening mammography Plan of Treatment Date Care Activity Detail Author Start: 11-10-2024 MR Brain WO and W contrast IV [facility] Start: 11-10-2024 MRI of brain with contrast Brain W/WO Contrast [facility] Start: 10-24-2022 Influenza vaccination Sequential Influenza Vaccine (Season Ended) [facility] Start: 08-22-2022 End: 08-22-2022 Patient encounter procedure 08/22/2022 10:10 AM EDT Office Visit [facility] [address] [place] [address] [address] [place] [address] Xu Alvarez MD [address] [place] [address] [place] [address] [facility] Start: 2021 Fall risk assessment Falls Risk Assessment [facility] Start: 2021 Pneumococcal Vaccine: Age 65+ (1 - PCV) Pneumococcal Vaccine: Age 65+ (1 - PCV) [facility] Start: 2006 Administration of herpes zoster vaccine Zoster Vaccines (1 of 2) [facility] Start: 1974 Hepatitis C screening Hepatitis C Screening [facility] Start: 10-27-1971 HIV screening HIV Screening [facility] Start: 1968 Depression screening using PHQ-9 (Patient Health Questionnaire 9) score Depression Screening (PHQ-2/9) [facility] Start: 10-27-1959 History and physical examination, annual for health maintenance Wellness Visit [facility] Start: 04-25-1957 COVID-19 Vaccine (#1) COVID-19 Vaccine (#1) [facility] Start: 1956 Screening for malignant neoplasm of colon [facility] Start: 1956 Screening for osteoporosis Dexa Scan [facility] Start: 1956 Tetanus vaccination Tetanus: Every 10yrs [facility] Immunizations Immunization Date Immunization Notes Care Provider Clinton ceja 11-24-2015 Influenza virus vaccine [facility] Payers Date Payer Category Payer Self-pay [id number] 2023 Self-pay [id number] 2021 Medicare MEDICARE MEDICAR E PART A & B [id number] 2021-Present [phone] CGS [id number] PART A CLAIMS [address] [address] [place] [address] [id number] 2021 Unknown MMO [employer] [place] [employer] [id number] 2021-Present [phone] [address] [place] [address] [id number] 2021 Medicare [id number] 2015 Unknown [id number] Unknown [id number] Unknown [id number] Unknown [id number] [id number] Unknown [id number] [id number] Unknown [id number] Unknown [id number] [id number] Unknown [id number] [id number] Unknown [id number] [id number] Unknown [id number] [id number] Unknown [id number] [id number] Unknown [id number] [id number] Unknown [id number] [id number] Unknown [id number] [id number] Unknown [id number] Social History Date Type Detail Facility Start: 02-29-2020 End: 03-19-2023 Tobacco smoking status NHIS Unknown if ever smoked [facility] Start: 1955 Sex Assigned At Female [facility] Start: 1955 Sex Assigned At Not on file [facility] Gender identity Not on file [facility] Start: 03-19-2023 Tobacco smoking stat us NHIS Never smoked tobacco (finding) [facility] Start: 05-11-2024 End: 05-24-2024 Sex Female (finding) [facility] Evaluation note 08-29-2024 Note Date & Type Note Facility 08-29-2024 Evaluation note Diagnosis Onset Date Resolution Anxiety acute August 29, 2024 8:14am Depression acute August 29, 2024 8:14am Fibromyalgia acute August 29 8:14am Paresthesias acute August 29 8:14am Low back pain chronic August 29 025 8:14am Neck pain chronic August 29, 2024 8:14am [facility] Work Phone: Evaluation note 03-03-2024 Note Date & Type Note Facility 03-03-2024 Evaluation note Diagnosis Onset Date Resolution Anxiety acute March 03, 2 025 8:22am Depression acute March 03 025 8:22am Fibromyalgia acute March 03, 2024 8:22am Paresthesias acute March 03, 2024 8:22am Low back pain chronic February 8:22am Neck pain chronic March 03, 025 8:22am [facility] Work Phone: Procedure note 12-02-2022 Note Date & Type Note Facility 12-02-2022 Procedure note [facility] Evaluation note Note Date & Type Note Facility Evaluation note No assessment information availa ble [facility] Work Phone: Evaluation note Note Date & Type Note Facility Evaluation note Diagnosis Paresthesia- Primary Disturbance of skin sensation documented in this encounter [facility] Evaluation note Note Date & Type Note Facility Evaluation note Diagnosis Onset Date Paresthesias acute Low back pain chronic Neck pain chronic [facility] Work Phone: Evaluation note Note Date & Type Note Facility Evaluation note Diagnosis Onset Date Bilateral carpal tunnel syndrome acute Fatigue acute Paresthesias acute Low back pain chronic Neck pain chronic Hypersomnia acute Paresthesias acute [facility] Work Phone: Evaluation note Note Date & Type Note Facility Evaluation note Diagnosis Onset Date Hypersomnia acute Paresthesias acute Left lumbar radiculopathy ac [place] Low back pain chronic Neck pain chronic [facility] Work Phone: Reason for referral (narrative) Note Date & Type Note Facility Reason for referral (narrative) No reason for referral information available [facility] Work Phone: Summary Purpose Family History No Family History Records FoundNo Family History Records Found Advance Directives No Advanced Directives Records Found Advance Directive Response Recorded Date/ Time Advance Directives No December 2:53pm Living Will No January 06, 2 016 2:53pm Power of Stereo Operator No January 07, 2016 2:53pm Advance Directive Response Recorded Date/ Time Advance Directives No December 3:53pm Living Will No January 06, 2 016 3:53pm Power of Stereo Operator No January 07, 2016 3:53pm Advance Directive [...] SCREENING/OSTEO CERVICAL SPONDYLOSIS/SPONDYLOLISTHESIS 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 Consult EORDER CERVIAL SPONDYLOSIS RX HERE Reason for Visit Paresthesias Low back pain Neck pain 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 Consult EORDER CERVIAL SPONDYLOSIS RX [...] Contact Neurology Diagnoses Paresthesia Chauncey Anderson, DO [address] [place] [address] Referral ID Status Reason Start Date Expiration Date V isits Requested Visits Authorized [id number] Authorized 06/17/2022 06/17/2023 1 1 Additional Source Comments INFORMATION SOURCE (unrecogn ized section and content) DATE CREATED AUTHOR 03/31/2019 [facility] DATE CREATED AUTHOR AUTHOR'S JOY ATYUVAL 12/11/2024 [facility] Goals (unrecognized section and content) Goals may [...] Anderson DO Primary Care Provider Active Dr. uJles Payne MD Referring Provider, Other Pro vider [...] BE BASED ON THE PRIMARY CLINICAL RECORDS. [facility]. provides no warranty or guarantee of the accuracy or completeness of information in this document.
[2024-12-13 10:11] LABS: Hematocrit 40.9 % (37-47); Hemoglobin 13.5 g/dL (12.0-15.0); Immature Granulocytes Count 0.020 X10^3/uL (0.0-0.0); Mean Corp Hgb Conc 33.0 g/dL (32-36); Mean Corpuscular Volume 84.3 fL (81-99); Mean Platelet Vol. 10.4 fl (6.2-12.0); NRBC Flagged by Analyzer 0 % (0-5); Platelet Count 315 K/mm3 (150-450); RBC Distribution Width CV 13.0 % (11.6-14.6); RBC Distribution Width SD 39.9 fl (35.1-43.9); Red Blood Count 4.85 M/mm3 (4.2-5.4); White Blood Count 6.7 K/mm3 (4.4-11.0)
[2024-12-13 11:00] LABS: AST(SGOT) 18 U/L (<=31); Alanine Aminotransfer ALT/SGPT 10 U/L (<=34); Albumin, Serum 4.3 g/dL (3.4-4.8); Alkaline Phosphatase 81 U/L (35-104); Anion Gap 10 (5-15); BUN 8 mg/dL (4-19); BUN/Creat Ratio 11.9 RATIO (10-20); Calcium,Total 9.4 mg/dL (7.6-11.0); Carbon Dioxide 26.6 mmol/L (21.0-32.0); Chloride 99 mmol/L (98-108); Cholesterol 233 mg/dL (<=200); Globulin 2.7 g/dL (2.2-4.2); Glucose 96 mg/dL (70-99); Low Density Lipoprotein Calc. 155 mg/dL; Potassium 4.1 mmol/L (3.3-5.1); Triglycerides 180 mg/dL; Very Low Density Lipoprotein 36 mg/dL (5-40); cholesterol:hdl ratio screen 5.17
== END | disposition home or self-care (01) ==
LOC: MTLAB 07:19
PROVIDERS: PCP Family Medicine; Referring Provider Family Medicine; Visit Provider Family Medicine
DX: R73.01 Impaired fasting glucose (principal); E03.9 Hypothyroidism, unspecified; E78.5 Hyperlipidemia, unspecified; R53.83 Other fatigue
CPT/HCPCS: 36415; 80053; 80061; 83036; 84443; 85025